=== PATIENT | female | born 1940 | race Caucasian/White ===

== ENCOUNTER 2017-02-13 12:37 | Day surgery (SDC) | payer MEDICARE, OTHER ==
[2017-02-13] VITALS (13 sets, daily range): BP systolic 111–155; BP diastolic 51–64; PULSE 63–83; RESP 10–16; O2SAT 93–100
[~2017-02-13] VITALS: Ht 157.5 cm; Wt 49.9 kg
[~2017-02-13 12:37] MED LIST: CALC117719 PO; CARB15DR74 BOTH_EYES; CHOL200025 PO; CeFAZolin Inj 2 GM in IV Premix 1 EACH IV ONE; DENO60DI SQ; ESTR10TA VG; FEM2.5T PO; GLUC100016 PO; HYOS0.1216 PO; MELA1TAB10 PO; MULT-1018 PO; OMEG1CAP25 PO; PEPPERMINT PO; PSYL3.4P5 PO; RESTASIS OU; S-AD200T6 PO; TURM500C7 PO; VITAMIN B12 PO; ZOV800 PO; [UNRECOGNIZED DRUG - OTHER] PO
[2017-02-13] MEDS ORDERED: Propofol 10,000 mCg/mL 20 mL Inj ONE (12:38)
[2017-02-13] MEDS ORDERED: fentaNYL-PF 50 mCg/mL 2 mL Inj ONE (12:38)
[2017-02-13] MEDS ORDERED: Ondansetron 2 mg/mL 2 mL Inj ONE (12:38)
[2017-02-13] MEDS ORDERED: Dexamethasone 4 mg/mL Inj ONE (12:38)
[2017-02-13] MEDS: Lactated Ringer's 1,000 ML IV SCH ×2 (12:54→13:30)
[2017-02-13] MEDS ORDERED: CeFAZolin Inj 2 gm / 50mL D5W IV ONE (14:06)
[2017-02-13] MEDS ORDERED: Lactated Ringer's 1,000 ML IV SCH (14:34)
[2017-02-13] MEDS ORDERED: Lactated Ringer's 500 ML IV PRN (14:34)
--- NOTE | 2017-02-13 14:34 | PCM.HPANE ---
Patient Data Surgeon Admitting Provider: Attending Provider:Tyrel Trivedi MD Primary Care Physician:Kentrell Gan MD Other Provider:[facility] Reason for Visit Left Axillary Lymphadenopathy Ht/WT & BMI Height (Feet): 5 Height (Inches): 2 Weight (Kilograms): 49.9 Body Mass Index 20.00 Allergies Coded Allergies: oxycodone (Verified Allergy, Unknown, NAUSEA, 01/23/13) Replaces ROXICET SOLN hydrocodone (Verified Adverse Reaction, Intermediate, nausea, 03/05/13) Uncoded Allergies: EGGS (Allergy, Unknown, 02/12/17) LACTOSE AND GLUTEN FREE (Allergy, Unknown, 02/12/17) Past Anesthesia History Anesthesia History: Denies:: Abnormal Airway, Anesthesia Reactions (all anes makes her nauseated), Difficult Intubation, Fam Anesthesia Reaction, Malignant Hyperthermia Diabetes History Hx Diabetes?: No MRSA MRSA: No Medications Hypertension Medication: No Home Meds Incl Beta Tio: No Reported Medications S-Adenosylmethionine Sul Tosyl (Edd-E)200 Mg Tablet.dr200 Mg PO DAILY 02/12/17 Multivitamin (Multi Vitamin Daily)1 Each Tablet1 Each PO DAILY 30 Days Ref 0 02/12/17 Calcium Carbonate (Tums Ultra Strength)1,177 Mg Tab.chew1,177 Mg PO BID 02/12/17 [Vitamin B12] No Conflict Hcxqh249 Mg PO DAILY 03/03/15 [Blk Pep Fruit Ext] No Conflict Check10 Mg PO DAILY 03/03/15 Turmeric Root Extract (Turmeric)500 Mg Janeudr634 Mg PO DAILY 03/03/15 Carboxymethylcellulose Sodium (Refresh Tears)15 Ml Drops15 Ml OP PRN 09/02/14 Psyllium Husk/Aspartame (Metamucil Fiber Singles Packet)3.4 Gm Powd.pack3.4 Gm PO PRN 09/02/14 Melatonin (Melatonin 1 mg Tablet)1 Each Tablet1 Mg PO HS Ref 0 09/02/14 Glucosamine Sulfate 2Kcl (Glucosamine)1,000 Mg Tablet1,500 Mg PO BID 09/02/14 [place]-3 Fatty Acids/Fish Oil ([place] 3 Fish Oil Softgel)1 Each Capsule.dr1 Each PO DAILY 09/02/14 Cholecalciferol (Vitamin D3) (Vitamin D3)2,000 Unit Tablet2,000 Unit PO DAILY 09/02/14 Estradiol (Vagifem)10 Mcg Hrukur46 Mcg VG TWICE WEEKLY 09/02/14 Acyclovir 800 Mg Bdq260 Mg PO BIDPRN Ref 0 09/02/14 Hyoscyamine 0.125 Mg Tablet0.125 Mg PO PRN 09/02/14 Denosumab (Prolia)60 Mg/1 Ml Xzbheio70 Mg SQ EVERY 6 MONTHS 09/02/14 Letrozole (Femara)2.5 Mg Tablet2.5 Mg PO DAILY Ref 0 03/02/14 [Peppermint Capsules] No Conflict Check Po Prn 08/19/13 [Restasis] No Conflict Check Ou Bid 08/19/13 Discontinued Reported Medications S-Adenosylmethionine Sul Tosyl (Same)200 Mg Tablet.dr200 Mg PO DAILY 03/03/15 Multivitamin (Daily Multiple Vitamin)1 Each Tablet1 Each PO DAILY SENIOR DOSE 03/03/15 Calcium Carbonate (Tums Ultra)400 Mg Tab.chew1,000 Mg PO BID 09/02/14 History History of ENT Problems?: Yes HEENT History: Positive for:: Hearing Problem Sinus Problem Denies:: Abnormal Airway Cataracts Difficult Intubation Dysphagia Glaucoma TMJ Hx of Heart Problems?: No Cardiovascular History: Denies:: Cardiac Surgery Chest Pain Congestive Heart Failure Edema Heart Murmur Hypertension Pacemaker Rheumatic Fever Thrombophlebitis Hx of Respiratory Problem?: No Respiratory History: Denies:: Asthma COPD Cough Dyspnea Emphysema Oxygen Administration Pneumonia Pulmonary Embolism Tuberculosis Use of C-PAP Machine Use of Inhalers / NEBS Hx Neurologic Problems?: No Neurological History: Denies:: CVA Headaches Multiple Sclerosis Parkinson's Disease Seizures Hx of GI Problems?: Yes Gastrointestinal History: Denies:: Cirrhosis Gall Bladder Disease Gastroesphageal Reflux Gastrointestinal Bleeding Heartburn Hepatitis Hx of Problems?: No Genitourinary History: Denies:: Kidney Stones Urinary Tract Infection Female Hx: Positive for:: Problems with Breasts? (left axilla current admission problem, hx patria mastectomy) Denies:: Currently Skin History: Denies:: History Skin Disorders? Pressure Ulcers Hx Musculoskeletal Problems?: Yes Musculoskeletal History: Positive for:: Osteoarthritis Denies:: Back Injury Fibromyalgia Joint Replacement Systemic Lupus Hx of Psycho/Social Problems?: No Psycho Social History: Denies:: Bipolar Disorder Hx Depression Hx Any Other Health Problems?: Yes Other History: Positive for:: Cancer (bilateral breasts) Denies:: Endocrine Disease Thyroid Disease History Blood Transfusions: Positive for:: Accept Blood Products? Denies:: Blood Transfusions Hx Diabetes: No Hx Alcohol Use: YesAlcoholic Drinks Per Day: couple of glasses wine couple times weekHx Substance Use: NoHave You Smoked inLast 12 mo: No Stop/Bang ARIEL Risk Assessment: Low Risk, <3 Yes Risk Assessment Category Category 1A: Patient has history of documented sleep apnea, and HAS NOT received any narcotic, sedative or anesthesia administration during this stay. Category 1B: Patient has history of documented sleep apnea, and HAS received any narcotic , sedative or anesthesia administration during this stay Category 2: Patient has SUSPECTED Obstructive Sleep Apnea, and HAS received any narcotic , sedative or anesthesia administration during this stay. Category 3: Patient has SUSPECTED Obstructive Sleep Apnea and HAS NOT received narcotic, sedative or anesthesia administration during this stay. Category 4: Outpatient in Procedural Areas with known sleep apnea or who screen positive for High Risk via the STOP/BANG questionnaire. Exam Exam Vital Signs Vital Signs Date Time Temp Pulse Resp B/P Pulse Ox O2 Delivery O2 Flow Rate FiO2 02/13/17 12:54 36.5 73 16 155/61 100 Room Air General Appearance: Alert, Oriented X3, Cooperative, No Acute Distress HEENT/AIRWAY: MP 2 Lungs: Clear to Auscultation, Normal Air Movement Heart: Exam Unremarkable, Regular Rate/Rhythm, No Murmurs/Rubs/Gallops Meds/Labs/Diagnostics Admission Meds Current Medications Lactated Ringer's (Lr) 1,000 ml @ 120 mls/hr Q8H20M IV Last administered on t 12:54; Start 02/13/17 at 05:00; Stop 02/13/17 at 13:19 Plan Impression Patient chart reviewed, patient interviewed and anesthestic plan with risks, benefits, and alternatives discussed, and informed consent obtained. NPO Status: 1045 ASA Physical Status: ASA2 Mod Systemic Disease Anesthetic Plan: GA Bene/Risks/Altern/Consents: Yes HP Complete Prior to Induction: Yes Edil Rodarte MD Feb 13, 2017 13:10
[2017-02-13] MEDS ORDERED: Atropine 0.4 mg/mL Inj IVPUSH PRN (14:35)
[2017-02-13] MEDS ORDERED: Phenylephrine 10,000 mCg/mL Inj IVPUSH PRN (14:35)
[2017-02-13] MEDS ORDERED: Labetalol 5 mg/mL 4 mL Inj IV PRN (14:35)
[2017-02-13] MEDS ORDERED: fentaNYL-PF 50 mCg/mL 2 mL Inj IVPUSH PRN (14:35)
[2017-02-13] MEDS ORDERED: EPHEDrine Sulfate 50 mg/mL Inj IVPUSH PRN (14:35)
[2017-02-13] MEDS ORDERED: MetoCLOpramide 5 mg/mL 2 mL Inj IVPUSH PRN (14:35)
[2017-02-13] MEDS ORDERED: Ondansetron 2 mg/mL 2 mL Inj IVPUSH PRN (14:35)
[2017-02-13] MEDS ORDERED: HYDROmorphone 1 mg/mL Inj IVPUSH PRN (14:35)
[2017-02-13] MEDS ORDERED: Bupivacaine 0.5%/EPI 50 mL Inj INFILTRATE ONE (14:41)
--- NOTE | 2017-02-13 15:04 | PCM.DISURG ---
Surgical Discharge Instruction Date of Service Feb 13, 2017 Dates of Hospitalization Date of Hospital Admission Providers Admitting Physician: Primary Care Physician: Kentrell Gan MD Attending Physician: Tyrel Trivedi MD Discharge Diagnosis Discharge Diagnosis Left axillary lymphadenopathy Diet Discharge Diet: No restrictions Activity Discharge Activity-General: Activity as pain allows Dressing and Incisional Care Dressing Instructions: Dermabond will peel off gradually Hygiene: May shower Follow Up Plan Follow Up Plan With Dr. Trivedi in surgery clinic in 10-14 days Call your provider for: Fever (over 101.5), Discharge @ incision, pus discharge Tyrel Trivedi MD Feb 13, 2017 15:04
[2017-02-13] MEDS ORDERED: Ketorolac 15 mg/mL Inj IVPUSH PRN (15:05)
[2017-02-13] MEDS ORDERED: Codeine-APAP 30-300 mg Tablet PO PRN (15:05)
--- NOTE | 2017-02-13 15:10 | PCM.SURGOP ---
Surgical Operative Report Date of Service: Feb 13, 2017 Pre Operative Diagnosis Left axillary lymphadenopathy Post Operative Diagnosis Same Procedure: Left axillary excisional lymph node biopsy Surgeon and Eviction Specialist: Surgeon: Tyrel Trivedi MD Assistants: Annetta Farmer PA-C Indication for Procedure 76-year-old woman with a history of bilateral breast cancer, who underwent an MRI of the left shoulder, and was incidentally found to have an abnormal left axillary lymph node vision 12 mm with loss of fatty hilum. An ultrasound confirmed a 17 x 14 x 10 mm lymph node with focal cortical thickening. She underwent an ultrasound-guided biopsy, which demonstrated a poorly differentiated epithelioid malignancy, suspicious for melanoma. PET/CT was then done, which showed nonspecific uptake in C6, and focal uptake in the left axilla, SUV 3.7. She was seen by dermatology, and there was no evidence of melanoma. After discussion of risks and benefits, she agreed to proceed with left axillary excisional lymph node biopsy. Findings: The abnormal node which was previously biopsied was not pigmented, and it was fairly soft. There was a single additional 3-4 mm node which was slightly firm , also not pigmented, which was excised. Both lymph nodes were in level II of the axilla. Procedure Details After smooth induction of general anesthesia, she was placed in the supine position with the left arm out, and was prepped and draped in wide sterile fashion. A procedural pause was performed according to the SCOAP checklist, and all were found to be in agreement. A transverse incision was made in the left axilla. Dissection was carried down with electrocautery until the axillary fascia was incised. The thoracodorsal bundle was visualized and preserved. The left axillary vein was not skeletonized, but was preserved. In level II, quite superior in the axilla the abnormal lymph node was encountered, which was not pigmented. It was dissected free from the surrounding tissue with the LigaSure device. The capsule of the node was ruptured during dissection, but it was no spillage of material. Ex vivo, the lymph node was fairly soft, and measured approximately 2 cm in diameter. It was sent for permanent pathology, labeled as left axillary lymph node #1. There was a second lymph node by palpation which was slightly abnormal , although not pathologically enlarged. This was dissected free from the surrounding tissue with the LigaSure device. Ex vivo, it probably only measured 3-4 mm in diameter. It was sent for permanent pathology, labeled as left axillary lymph node #2. There were no other abnormal lymph nodes by palpation. Hemostasis was adequate. The axillary fascia was closed with a single 3-0 Vicryl suture. The skin incision was closed with a running 4-0 Monocryl subcuticular stitch. Dermabond was applied to the skin as a dressing. At the end of the case all needle and sponge counts were correct 2. The patient was awakened from anesthesia without difficulty, and taken to the recovery room in satisfactory condition, having tolerated the procedure well. Complications There were no periprocedural complications identified. Surgical Specimen Removed: Yes Specimen sent to Pathology: Yes Surgical Specimen description: Left axillary lymph node #1. Left axillary lymph node #2. Anesthetic Plan: GA Grafts, Implants: None Output, Estimated Blood Loss: 5 Blood Administration during davis: No Drains: None Catheters: None copies to: Chester Nolan DO; Kentrell Gan MD, Joshua D MD Feb 13, 2017 15:10
--- NOTE | 2017-02-13 15:10 | PCM.ANEP1 ---
Post Anesthesia Phase 1 PACU Phase 1 Assessment Vital Signs Vital Signs Date Time Temp Pulse Resp B/P Pulse Ox O2 Delivery O2 Flow Rate FiO2 02/13/17 12:54 36.5 73 16 155/61 100 Room Air Anesthetic Administered: GA SULLIVAN's with Equal Strength: Yes Pain: No Nausea or Vomiting: No Oxygen Delivery: Nasal Cannula Lungs: Clear to Auscultation, Normal Air Movement Summary VSS, see RN's notes Edil Rodarte MD Feb 13, 2017 15:10
--- NOTE | 2017-02-13 15:11 | PCM.ANEP2 ---
Post Anesthesia Evaluation ASA/CMS Post Anesthesia VS in Patient's Normal Range?: Yes Resp Stable; Airway Patent?: Yes CV Function & Hydration Stable: Yes Mental Status Recovered?: Yes Pain control Satisfactory?: Yes N/V Control Satisfactory?: Yes Edil Rodarte MD Feb 13, 2017 15:11
[2017-02-13] MEDS ORDERED: Lactated Ringer's 500 ML IV ONE (17:00)
--- NOTE | 2017-02-19 12:14 | PATH ---
SURGICAL PATHOLOGY Attending Physician:Kimmy Howard CASE STATUS: Signed Out PATIENT NAME: SANDRA BATES PID: [id number] : 1940 DATE COLLECTED:02/13/2017 00:00 SPECIMEN: 1: Lymph Node, Biopsy 2: Lymph Node, Biopsy CLINICAL HISTORY: LEFT AXILLA LYMPHADENOPATHY 1). LEFT AXILLARY LYMPH NODE #1 2). LEFT AXILLARY LYMPH NODE #2 FINAL DIAGNOSIS: 1. Left Axillary Lymph Node: Metastatic malignant melanoma. Tumor is confined within the lymph node capsule. 2. Left Axillary Lymph Node: One lymph node with no evidence of malignancy. ICD10 C43.9 GROSS DESCRIPTION: The specimens are received in formalin, labeled with the patient's name, and sublabeled as the following: (1) L ax lymph node #1; (2) L ax lymph node #2. (1) The specimen consists of a lymph node (2.0 x 1.7 x 0.7 cm). Section code: (1A-1C) one lymph node, serially sectioned. Specimen entirely submitted. (2) The specimen consists of a lymph node (0.8 x 0.5 x 0.5 cm). Section code: (2A) one lymph node, bisected. Specimen entirely submitted. 02/14/17 MICRO DESCRIPTION: 1) The lymph node is replaced by sheets of moderately sized cells with irregularly sized nuclei and moderate amounts of cytoplasm. Numerous mitoses are found. Immunocytochemistry is done to characterize the tumor. Sections, along with appropriate controls are incubated with the following antibodies: S100:Positive. HMB45:Positive. Melan-A:Positive. SOX10:Positive. Pankeratin (IRINA):Negative. CD45:Negative. CD20:Negative. CD3:Negative. The findings are consistent with metastatic malignant melanoma. ICD-9 CODES: CPT CODES: 1: 37384, 34804, 37815, 46965, 08278, 51342, 19350, 32099, 00901 2: 39764 Electronically Signed Out Myles Foley MD [facility] [address], [place] [address] Technical component performed at [facility], [facility] [address], [place], [address]
== END 2017-02-13 23:59 | disposition home or self-care (01) ==
LOC: SAS 12:37
PROVIDERS: ATTEND Student in an Organized Health Care Education/Training Program
DX: C44.599 Other specified malignant neoplasm of skin of other part of trunk (principal); R59.0 Localized enlarged lymph nodes; M19.90 Unspecified osteoarthritis, unspecified site; Z85.3 Personal history of malignant neoplasm of breast; Z87.891 Personal history of nicotine dependence; Z79.890 Hormone replacement therapy
CPT/HCPCS: 38525; J0690; J1100; J1885; J2405; J2765; J3010; J7120

== ENCOUNTER 2017-04-01 09:51 | Inpatient (IN) | payer MEDICARE, OTHER ==
[~2017-04-01] VITALS: Ht 154.9 cm; Wt 48.2 kg
[~2017-04-01 09:51] MED LIST changes: -CeFAZolin Inj 2 GM in IV Premix 1 EACH IV ONE
[2017-04-01 10:02] VITALS: BP 131/73; PULSE 97; O2SAT 99
--- NOTE | 2017-04-01 10:08 | ED.REPORT ---
HPI-Abd Pain F 40 and Over Date of Service April 01, 2017 ED Provider: Dr. Huffman Pt is a 76 year old female with a hx of melanoma (started Ipilimumab 3 weeks ago ) presenting to the ED complaining of diarrhea onset 5 days ago. Associated symptoms include nausea and vomiting for 3 days, generalized weakness, and a fever of 100.9. Denies abd pain or blood in the diarrhea. Dr. Nolan advised the pt to take Imodium, which she did without relief. Denies any recent sick contacts or antibiotic use. Nursing Notes Stated Complaint: DIARRHEA Chief Complaint: Female Abdominal Pain Nursing Notes Reviewed: Yes Allergies: Coded Allergies: oxycodone (Verified Allergy, Unknown, NAUSEA, 01/23/13) Replaces ROXICET SOLN hydrocodone (Verified Adverse Reaction, Intermediate, nausea, 03/05/13) Uncoded Allergies: EGGS (Allergy, Unknown, 02/12/17) LACTOSE AND GLUTEN FREE (Allergy, Unknown, 02/12/17) NARCOTICS (Adverse Reaction, Intermediate, Nausea,Vomiting, 04/01/17) Scheduled ([Restasis]) OU BID ([Peppermint Capsules]) PO PRN ([Vitamin B12]) 500 MG PO DAILY Acyclovir (Acyclovir) 800 Mg Tab 800 MG PO BIDPRN Calcium Carbonate (Tums Ultra Strength) 1,177 Mg Tab.chew 1,177 MG PO BID Carboxymethylcellulose Sodium (Refresh Tears) 15 Ml Drops 15 ML OP PRN Cholecalciferol (Vitamin D3) (Vitamin D3) 2,000 Unit Tablet 2,000 UNIT PO DAILY Glucosamine Sulfate 2Kcl (Glucosamine) 1,000 Mg Tablet 1,500 MG PO BID Hyoscyamine (Hyoscyamine) 0.125 Mg Tablet 0.125 MG PO PRN Multivitamin (Multi Vitamin Daily) 1 Each Tablet 1 EACH PO DAILY [place]-3 Fatty Acids/Fish Oil ([place] 3 Fish Oil Softgel) 1 Each Capsule. 1 EACH PO DAILY Omeprazole (Omeprazole) 20 Mg Capsule.dr 20 MG PO BID Turmeric Root Extract (Turmeric) 500 Mg Capsule 500 MG PO DAILY Scheduled PRN Naproxen Sodium (Naproxen Sodium) 550 Mg Tab 550 MG PO BID PRN PRN For Pain General Time Seen by MD: 10:07 Chief Complaint Diarrhea moderate Hx Obtained From: Patient Arrived By: Walk-in Sudden in Onset?: No Onset Occurred: 5 days ago Symptom Duration: Since onset Progression since Onset: Constant Severity: Current: No pain currently Severity: Maximum: No pain Associated with: Reports: Fever (100.9), Nausea, Vomiting Recent Healthcare: No recent doctor visit, No recent hospitalization Similar Sx Previous: No Past Medical History Past Medical History 1. Stage IIIC (Tx N1) malignant melanoma. 2. Right-sided stage I, node-negative breast cancer. The patient's letrozole was held on March 02, 2017, during her ipilimumab therapy. 3. Polymyalgia rheumatica. Managed with OTC naproxen, 1 pill per day. Follow up with Rheumatology later in the week to confirm diagnosis. 4. Left-sided multifocal DCIS. 5. Irritable bowel disease. 6. Osteopenia. Past Surgical History Bilateral mastectomy Smoking History Unknown if Ever Smoker Ambulatory Status Independent Review of Systems Constitutional: Reports: Fever (100.9), Weakness - generalized GI: Reports: Diarrhea, Nausea, Vomiting, Denies: Abdominal pain, Bloody/tarry stool Complete sys rev & neg: except as marked. Physical Exam Vital Signs Vital Signs (First) Date Time Temp Pulse Resp B/P Pulse Ox O2 Delivery O2 Flow Rate FiO2 04/01/17 10:02 37.3 97 131/73 99 Room Air Initial VS: Reviewed Head / Eyes: Atraumatic, Normocephalic, PERRL ENT: Conjunctiva normal Extremities: Vascular intact, Neuro intact, No swelling, No tenderness Skin: Warm, Dry, No cyanosis Neurologic: Alert, Oriented, Nonfocal Psychiatric: Mood/affect normal, Behavior normal, Normal thought content General/Constitutional: Awake, Alert, No acute distress, Well appearing Respiratory / Chest: Breath sounds NL, Breath sounds = bilat, No respiratory distress, No rales, No rhonchi, No wheezing, No stridor Cardiovascular: Heart rate NL, Regular rhythm, Heart sounds NL, No gallop, No murmurs, No rubs Abdomen: Soft, No guarding, No rebound Hyperactive bowel sounds. Little suprapubic tenderness. Back: Atraumatic, Inspection NL, No CVA tenderness Interpretation & Diagnostics Lab Results Interpretation Result Diagram: 04/01/17 1107 04/01/17 1107 Test 04/01/17 11:07 04/01/17 12:26 White Blood Count 8.2th/mm3 (3.8-10.1) Red Blood Count 4.19mil/mm3 (3.90-5.20) Hemoglobin 11.9g/dL (12.0-15.6) Hematocrit 35.1% (35.0-46.0) Mean Corpuscular Volume 83.8fL (81-100) Mean Corpuscular Hemoglobin 28.4pg (27.0-35.0) Mean Corpuscular Hemoglobin Concent 33.9% (32.0-37.0) Red Cell Distribution Width 14.1% (12.3-15.4) Platelet Count 405bil/L (150-400) Neutrophils (%) (Auto) 27% (40-74) Lymphocytes (%) (Auto) 22% (14-46) Monocytes (%) (Auto) 22% (4-12) Eosinophils (%) (Auto) 3% (0-5) Basophils (%) (Auto) 1% (0-3) Band Neutrophils % 25% (1-5) Sodium Level 137mEq/L (134-144) Potassium Level 3.7mEq/L (3.5-5.2) Chloride Level 97mEq/L (97-108) Carbon Dioxide Level 20mmol/L (18-29) Blood Urea Nitrogen 5mg/dL (8-27) Creatinine 0.48mg/dL (0.57-1.00) Estimat Glomerular Filtration Rate 179mL/min (>59) Glucose Level 96mg/dL (60-99) Calcium Level 8.4mg/dL (8.5-10.1) Magnesium Level 2.0mg/dL (1.6-2.6) Total Bilirubin 0.3mg/dL (0.0-1.2) Aspartate Amino Transf (AST/SGOT) 19U/L (0-50) Alanine Aminotransferase (ALT/SGPT) 11U/L (0-32) Alkaline Phosphatase 75U/L (25-165) Total Protein 5.9g/dL (6.4-8.4) Albumin 3.0g/dL (3.4-5.0) Hold Jasso Top Tube Received (Received) Hold Urine Received (Received) Re-Eval/Medical Decision Med Decision/Clinical Course Diarrhea, thought to be secondary to Ipaliumiab. Hydrated, stool sent for PCR panel, no risk for C diff found. Oncology advises admit. Re-Evaluation/Progress #1: Time of Eval: 12:18 Patient Status: Condition improved Re-Evaluation/Progress Note: Performed physical exam. Pt reports that she has been taking Imodium with some relief, but it has been making her mouth very dry. Re-Evaluation/Progress #2: Time of Eval: 12:28 Patient Status: Condition improved Re-Evaluation/Progress Note: Discussed consultation with Dr. Nolan and plan for admission. Pt understands and agrees. Consultation #1: Referral / Consult Name: Chester Nolan DO Call Returned at: 12:27 Note: Oncology. Dr. Nolan recommends admission and administration of zofran, imodium and IV fluids. Consultation #2: Referral / Consult Name: [place] He MD Consulted With: Hospitalist Call Returned at: 12:47 [employer] Lecturer: Will see patient, Agrees with plan, Accepts admit Counseled Regarding: Diagnosis, Lab results, Need for follow-up, When/why to return to ED Discharge & Departure Primary Impression: Diarrhea Disposition: ADMITTED TO HOSPITAL Discharge Condition All VS Reviewed: Yes Condition: Improved Referrals: Kentrell Gan MD (PCP) Chester Nolan Attestation Portions of this note were transcribed by Socorro Norwood. I, Dr. Huffman personally performed the history, physical exam and medical decision-making; I reviewed and confirmed the accuracy of the information in the transcribed note. Signed by : Bryan De La Cruz, 04/01 at 1248. copies to: Chester Nloan DO; Kentrell Gan MD, Donald L MD April 01, 2017 10:07 SOCORRO NORWOOD April 01, 2017 11:01
[2017-04-01] MEDS ORDERED: 0.9% Sodium Chloride 1,000 ML IV ONE ×2 (11:01→12:20)
[2017-04-01] MEDS ORDERED: Ondansetron 2 mg/mL 2 mL Inj IV PRN (11:05)
[2017-04-01 11:55] LABS: Mean Corpuscular Volume 83.8 fL (81-100)
[2017-04-01 11:56] LABS: BASOPHILS % (AUTO) 1 % (0-3); EOSINOPHILS % (AUTO) 3 % (0-5); MONOCYTES % (AUTO) 22 % (4-12); Mean Corpuscular Hemoglobin 28.4 pg (27.0-35.0); NEUTROPHILS % (AUTO) 27 % (40-74); Platelet Count 405 bil/L (150-400)
[2017-04-01 12:06] VITALS: BP 132/67; PULSE 67; O2SAT 98
[2017-04-01] MEDS ORDERED: Ondansetron 2 mg/mL 2 mL Inj IVPUSH PRN (12:45)
[2017-04-01] MEDS ORDERED: OMEP20CA11 PO (13:09)
[2017-04-01] MEDS ORDERED: NAPR550T44 PO (13:09)
--- NOTE | 2017-04-01 13:30 | NUR ---
admitted to room 1020 from ER c/o mild nausea and mild abd pain at this time. No further diarrhea. ambulates with SBA for slightly unsteady gait. VSS, alert and oriented
--- NOTE | 2017-04-01 13:42 | PCM.HPMED ---
Subjective Date of Service April 01, 2017 Primary Provider: Admitting Physician: Primary Care Physician: Kentrell Gan MD Attending Physician: Chief Complaint: intractable diarrhea, nausea, vomiting History of Present Illness: 76-year-old female with melanoma stageIII on immunotherapy with Ipilimumab, breast CA, PMR on NSAID p/w generalized weakness, persistent nausea, vomiting, diarrhea. Patient received first cycle of Ipilimumab 03/12, about 10days later, started having nausea, vomiting, diarrhea, poor appetite, Symptoms has been on and off. nausea was controlled with valium. However, diarrhea was continued no blood, watery, no mucus. patient tried Imodium up to 6times per day but diarrhea never stopped. Since last night, pt had 4times of diarrhea, 2more in the hospital. Patient didn't have any abdominal pain during this course. had mild fever 100.9 several days ago. also noticed some lightheadedness, thirsty. patient called oncologist today, asked patient to admitted to the hospital. Patient denied eye pain, photosensitivity, patient also noticed that her regular pain in bilateral shoulder and hip pain were worse since she got Ipilimumab, pt kept taking [id number] bid wit omeprazole. appetite has been very poor due to n/v as well. no vomiting blood. VS 131/73, 97, afebrile, 99% on RA. pt was given 1liter bolus NS, stool PCR sent ROS: no fever chills, nausea, vomiting, chest pain, difficulty breathing, travel , sick contacts, urinary complaints Review of Systems: Pertinent positives as noted in history of present illness. All other systems were reviewed and are negative Allergies Coded Allergies: oxycodone (Verified Allergy, Unknown, NAUSEA, 01/23/13) Replaces ROXICET SOLN hydrocodone (Verified Adverse Reaction, Intermediate, nausea, 03/05/13) Uncoded Allergies: EGGS (Allergy, Unknown, 02/12/17) LACTOSE AND GLUTEN FREE (Allergy, Unknown, 02/12/17) NARCOTICS (Adverse Reaction, Intermediate, Nausea,Vomiting, 04/01/17) Home Medications ([Restasis]) OU BID ([Peppermint Capsules]) PO PRN ([Blk Pep Fruit Ext]) 10 MG PO DAILY ([Vitamin B12]) 500 MG PO DAILY Acyclovir (Acyclovir) 800 Mg Tab 800 MG PO daily Calcium Carbonate (Tums Ultra Strength) 1,177 Mg Tab.chew 1,177 MG PO BID Carboxymethylcellulose Sodium (Refresh Tears) 15 Ml Drops 15 ML OP PRN Cholecalciferol (Vitamin D3) (Vitamin D3) 2,000 Unit Tablet 2,000 UNIT PO DAILY -D-k-n-f-p-n-m-a-b- -(--C-c-e-l-i-a--)- -6-0- -M-g--/--1- -M-l- -W-f-j-i-n-g-e- -6-0- -M-G- -S-Q- -E-V-E-R-Y- -6- -W-G-T-T-H-S- Estradiol (Vagifem) 10 Mcg Tablet 10 MCG VG TWICE WEEKLY Glucosamine Sulfate 2Kcl (Glucosamine) 1,000 Mg Tablet 1,500 MG PO BID Hyoscyamine (Hyoscyamine) 0.125 Mg Tablet 0.125 MG PO PRN -U-p-t-w-l-d-o-l-e- -(--F-z-f-a-r-a--)- -2-.-5- -M-g- -N-h-v-l-e-t- -2-.-5- -M-G- -P-O- -D-A-I-L-Y- - - 03/02/[address] new since Iipilimumab started Melatonin (Melatonin 1 mg Tablet) 1 Each Tablet 1 MG PO HS Multivitamin (Multi Vitamin Daily) 1 Each Tablet 1 EACH PO DAILY [place]-3 Fatty Acids/Fish Oil ([place] 3 Fish Oil Softgel) 1 Each Capsule. 1 EACH PO DAILY Psyllium Husk/Aspartame (Metamucil Fiber Singles Packet) 3.4 Gm Powd.pack 3.4 GM PO PRN S-Adenosylmethionine Sul Tosyl (Edd-E) 200 Mg Tablet. 200 MG PO DAILY Turmeric Root Extract (Turmeric) 500 Mg Capsule 500 MG PO DAILY PMH PAST MEDICAL HISTORY: Significant for: 1. Stage IIIC (Tx N1) malignant melanoma. 2. Right-sided stage I, node-negative breast cancer. The patient's letrozole was held on March 02, 2017, during her ipilimumab therapy. 3. Polymyalgia rheumatica. Managed with OTC naproxen, 1 pill per day. Follow up with Rheumatology later in the week to confirm diagnosis. 4. Left-sided multifocal DCIS. 5. Irritable bowel disease. 6. Osteopenia. Surgical History mastectomy x2 Left axillary excisional lymph node biopsy Family History father of aneurysm sister of aneurysm mother of stroke Social History Hx Alcohol Use: Yes Hx Substance Use: No Smoking Status: Unknown if Ever Smoker Exam Vital Signs Vital Sign - Last Date Time Temp Pulse Resp B/P Pulse Ox O2 Delivery O2 Flow Rate FiO2 04/01/17 12:06 37.4 67 132/67 98 Room Air Exam NAD, comfortably laying down on the bed no JVD, MMM, no LAD RRR, nl s1, s2 no mrg CTAB, no w,c S,ND,NT,normoactive BS+ warm, no edema, pulses 2/2 Lab and Diagnostics Result Diagram: 04/01/17 1107 04/01/17 1107 Assessment & Plan Acute, active Generalized weakness, intractable nausea, vomiting, diarrhea, POA, onset 10days after first immunotherapy with Ipilimumab for melenoma, which is likely the etiology. no SIRS. labs unremarkable. -awaits stool PCR, if negative, likely to start steroid, appreciate input -NS 100cc/hr given hypovolemia, symptomatic, -will consider CT abd with oral contrast, although etiologies at this point seems obvious -zofran prn for n/v Chronic, stable 1. Stage IIIC (Tx N1) malignant melanoma, hold Ipilimumab as above, appreciate management, continue acyclovir for herpes ppx 2. Right-sided stage I, node-negative breast cancer. The patient's letrozole was held on March 02, 2017, during her ipilimumab therapy. 3. presumed Polymyalgia rheumatica. will try ketorolac 15mg prn for severe pain, pantoprazole prn, pt is scheduled to see Rheumatology to confirm dx 4. Left-sided multifocal DCIS. 5. Irritable bowel disease. 6. Osteopenia. dispo:Patient will be admitted with inpatient status with expectation of inpatient therapy for more than 2 midnights diet:regular dvt ppx:LMWH Full code Time spent 65 minutes Michoacano He MD April 01, 2017 12:51
[2017-04-01 13:56] VITALS: BP 146/66; PULSE 99; RESP 18; O2SAT 98
[2017-04-01] MEDS: Lactated Ringer's 1,000 ML IV SCH (14:07)
[2017-04-01] MEDS ORDERED: Artificial Tears 15 mL Ophthalmic Solution BOTH_EYES PRN (14:25)
[2017-04-01] MEDS: Ketorolac 15 mg/mL Inj IVPUSH PRN ×2 (15:00→21:58)
[2017-04-01 18:07] LABS: APPEARANCE,URINE CLEAR (CLEAR,HAZY); COLOR,URINE STRAW (YELLOW); OCCULT BLOOD,URINE NEGATIVE (NEGATIVE); UROBILINOGEN,URINE NORMAL (NORMAL)
[2017-04-01] MEDS: Acyclovir 800 mg Tablet PO SCH (19:59)
[2017-04-01 20:16] VITALS: BP 149/71; PULSE 103; RESP 16; O2SAT 98
[2017-04-02] VITALS: BP 141/69; RESP 18; O2SAT 96
--- NOTE | 2017-04-02 00:34 | NUR ---
Nausea Patient states that her nausea is limited at this time. Pain is 2/10. Patient had diarrhea twice so far this shift. Patient A&OX3. up independent to bathroom. Patient had shower this shift. Tolerating oral fluids well.
[2017-04-02] MEDS: Lactated Ringer's 1,000 ML IV SCH ×2 (01:50→11:20)
[2017-04-02 06:17] VITALS: BP 96/56; PULSE 65; RESP 16; O2SAT 95
[2017-04-02 06:25] LABS: Magnesium 1.6 mg/dL (1.6-2.6); Phosphorus 1.7 mg/dL (2.5-4.9)
[2017-04-02] MEDS: Acyclovir 800 mg Tablet PO SCH ×2 (07:49→20:05)
[2017-04-02] MEDS: Pantoprazole 40 mg ER24 Tablet PO SCH (07:49)
[2017-04-02 07:53] LABS: BASOPHILS % (AUTO) 0 % (0-3); EOSINOPHILS % (AUTO) 0 % (0-5); MONOCYTES % (AUTO) 25 % (4-12); Mean Corpuscular Hemoglobin 28.2 pg (27.0-35.0); Mean Corpuscular Volume 84.5 fL (81-100); NEUTROPHILS % (AUTO) 57.5 % (40-74); Platelet Count 331 bil/L (150-400)
[2017-04-02 09:50] VITALS: BP 114/65; PULSE 79; RESP 18; O2SAT 99
[2017-04-02] MEDS: MethylprednisoLONE Sodium Succinate 40 mg/mL Inj IVPUSH SCH (11:14)
[2017-04-02 12:35] VITALS: BP 119/61; PULSE 86; RESP 18; O2SAT 99
--- NOTE | 2017-04-02 13:54 | NUR ---
Social Work: Initial Assessment D: EMR reviwed. Pt is a 76 y/o female admitted for intractable diarrhea, weakness per H&P. ROGER met with pt at bedside to conduct initial assessment. Pt was alert and oriented x3. SW explained role and wrote phone number on white board. SW confirmed pt has completed DPOA/advanced directive ppw and encouraged pt to provide a copy to the hospital. Pt's primary contact/DPOA is spouse Jv Pettit ([phone]). Pt gave verbal consent to contact DPOA for discharge planning. Pt's insurance is Medicare and [employer]. Pt's PCP is Kentrell Gan MD. Pt has no Hx of HH or SNF. Pt has no LTC or VA insurance. Pt is independent with ADLs. Pt does not use any DME. Pt drives. Pt is independent at baseline. Pt lives at home with spouse in [facility] in a 2-story home with 2 steps to enter and 13 steps to the second level. Pt stated she has been up in room and ambulating independently. Pt's spouse will provide transportation home via POV when pt is medically stable. SW does not anticipate any discharge needs at this time but will continue to follow if needs arise. A: Pt who is independent at baseline. P: Pt's spouse to transport pt home via POV when pt is medically stable. ROGER does not anticipate any discharge needs at this time but will continue to follow if needs arise. Addendum: 04/02/17 at 1404 by WENDI AVENDAÑO SS Amended: Links added.
--- NOTE | 2017-04-02 16:34 | NUR ---
Diarrhea Pt with [address] morning[address] Dr[address] Nolan started 40mg Solumedrol given at 1100 to help with diarrhea; loose stools have slowed down with only one more this afternoon. Q6hr blood sugar was 162. No s/s of electrolyte imbalance. Will continue to monitor closely.
[2017-04-02] MEDS ORDERED: predniSONE 20 mg Tablet PO SCH (17:45)
--- NOTE | 2017-04-02 17:51 | PCM.PNMED ---
Subjective Date of Service April 02, 2017 Subjective Patient feeling better seems to feel the diarrhea is letting up. No chest pain , no dyspnea no nausea or vomiting. Patient tells me she saw her oncologist Dr. Nolan and that this was a reaction to the immunotherapy she was old and that she needed steroids and he was going to prescribe them. At this time in the evening I see no note nor an order for steroids. Exam Vital Signs Vital Sign - Last Date Time Temp Pulse Resp B/P Pulse Ox O2 Delivery O2 Flow Rate FiO2 04/02/17 12:35 36.9 86 18 119/61 99 Room Air Intake and Output 04/01/17 04/01/17 04/02/17 Cumulative From/Thru 15:00 23:00 07:00 04/01/17 10:02 - 04/02/17 06:17 Intake Total 2000 ml 400 ml 1854 ml 4254 ml Output Total 800 ml 950 ml 1750 ml Balance 2000 ml -400 ml 904 ml 2504 ml Intake Oral 400 ml 450 ml 850 ml IV Total 2000 ml 1404 ml 3404 ml Output Urine Total 800 ml 800 ml Urine/Stool Mix 950 ml 950 ml # Bowel Movements 3 3 Exam Gen.- A+ O 3 no apparent distress. Eyes- open conjunctiva clear, pupils equal nonicteric ENT- ears normal, nose normal Neck- supple/trach midline CVS-normal rate Lungs-respirations regular and nonlabored GI- flat Musc- moving 4 no obvious deformity Neuro- cranial nerves II through XII intact to gross examination, nonfocal Skin- warm and dry, no rashes/lesions/wounds noted Psych- pleasant and appropriate, Lab and Diagnostics Result Diagram: 04/02/17 0532 04/02/17 0532 Assessment & Plan 76-year-old female with melanoma on immunotherapy developed diarrhea was admitted 04/01 04/02 meeting patient with immunotherapy induced enterocolitis being treated with steroids, hypokalemic and anemic changing IV fluids to replace potassium and will follow up labs in the morning Generalized weakness, intractable nausea, vomiting, diarrhea, POA, onset 10days after first immunotherapy with Ipilimumab for melenoma, -stool PCR + negative, solumedrol 40mg IV QDay ordered by? ? -NS w/ 20meq 100cc/hr -zofran prn for n/v Anemia- likely dilutional, follow hypokalemia- replace/monitor check mag Stage IIIC (Tx N1) malignant melanoma, hold Ipilimumab as above, appreciate management, continue acyclovir for herpes ppx Right-sided stage I, node-negative breast cancer. The patient's letrozole was held on March 02, 2017, during her ipilimumab therapy. presumed Polymyalgia rheumatica. will try ketorolac 15mg prn for severe pain, pantoprazole prn, pt is scheduled to see Rheumatology to confirm dx Left-sided multifocal DCIS. Irritable bowel disease. Osteopenia. dispo:Patient will be admitted with inpatient status with expectation of inpatient therapy for more than 2 midnights diet:regular dvt ppx:LMWH Full code Jonathan Vazquez MD April 02, 2017 17:51
[2017-04-02] MEDS: 0.9% NaCl + KCl 20 mEq/L 1,000 ML IV SCH (19:16)
[2017-04-02 21:07] VITALS: BP 115/61; PULSE 89; RESP 18; O2SAT 96
--- NOTE | 2017-04-02 23:41 | NUR ---
Activity Patient alert and oriented x3. No complaints of pain. VSS. Encouraged patient to drink fluids. Call light within reach. Care continues.
[2017-04-03 00:10] VITALS: BP 111/75; PULSE 91; RESP 16; O2SAT 97
[2017-04-03] MEDS: 0.9% NaCl + KCl 20 mEq/L 1,000 ML IV SCH ×2 (03:55→09:32)
[2017-04-03 05:14] VITALS: BP 115/66; PULSE 77; RESP 16; O2SAT 98
[2017-04-03 06:10] LABS: Mean Corpuscular Hemoglobin 28.4 pg (27.0-35.0); Platelet Count 381 bil/L (150-400)
[2017-04-03 06:27] LABS: Magnesium 1.8 mg/dL (1.6-2.6)
[2017-04-03 07:42] LABS: BASOPHILS % (AUTO) 0 % (0-3); EOSINOPHILS % (AUTO) 0 % (0-5); MONOCYTES % (AUTO) 10 % (4-12); NEUTROPHILS % (AUTO) 75 % (40-74)
[2017-04-03] MEDS: Pantoprazole 40 mg ER24 Tablet PO SCH (08:20)
[2017-04-03] MEDS: Acyclovir 800 mg Tablet PO SCH ×2 (08:21→20:05)
[2017-04-03] MEDS: MethylprednisoLONE Sodium Succinate 40 mg/mL Inj IVPUSH SCH (09:32)
[2017-04-03 14:58] VITALS: BP 112/57; PULSE 95; RESP 16; O2SAT 95
--- NOTE | 2017-04-03 15:51 | NUR ---
AMBULATION/DIARRHEA/EDEMA P-Patient has bilateral edema lower extremities. Diarrhea x2 this shift (small liquid). I- MD made aware on edema and IV fluids stopped and Lasix started, patient encouraged to ambulate. IVP Heaven-medrol given per orders. E-Patient ambulated 100ft in hallway, monitor I/O's.
[2017-04-03 16:53] VITALS: BP 128/71; PULSE 95; RESP 14; O2SAT 96
--- NOTE | 2017-04-03 17:46 | PCM.PNMED ---
Subjective Date of Service April 03, 2017 Subjective Patient feels like abdomen is feeling better, diarrhea is letting up. She is concerned however about bilateral leg swelling. No chest pain, no dyspnea, no nausea or vomiting Exam Vital Signs Vital Sign - Last Date Time Temp Pulse Resp B/P Pulse Ox O2 Delivery O2 Flow Rate FiO2 04/03/17 16:53 36.7 95 14 128/71 96 Room Air Intake and Output 04/02/17 04/02/17 04/03/17 Cumulative From/Thru 14:59 22:59 06:59 04/01/17 10:02 - 04/03/17 06:07 Intake Total 1549 ml 1300 ml 7103 ml Output Total 800 ml 750 ml 3300 ml Balance 749 ml 550 ml 3803 ml Intake Oral 800 ml 250 ml 1900 ml IV Total 749 ml 1050 ml 5203 ml Output Urine Total 400 ml 450 ml 1650 ml Urine/Stool Mix 400 ml 300 ml 1650 ml # Bowel Movements 4 1 8 Exam Gen.- A+ O 3 no apparent distress. Eyes- open conjunctiva clear, pupils equal nonicteric ENT- ears normal, nose normal Neck- supple/trach midline CVS-normal rate Both feet/legs are swollen and seem disproportional to the rest of her body Lungs-respirations regular and nonlabored GI- flat Musc- moving 4 no obvious deformity Neuro- cranial nerves II through XII intact to gross examination, nonfocal Skin- warm and dry, no rashes/lesions/wounds noted Psych- pleasant and appropriate, Lab and Diagnostics Result Diagram: 04/03/17 0540 04/03/17 0540 Assessment & Plan 76-year-old female with melanoma on immunotherapy developed diarrhea was admitted 04/01 04/02 meeting patient with immunotherapy induced enterocolitis being treated with steroids, hypokalemic and anemic changing IV fluids to replace potassium and will follow up labs in the morning 04/03 diarrheas letting outpatient feels better she has substantial edema. Spoke with her oncologist Dr. Nolan we are going to continue Solu-Medrol observe overnight. Her stopping IV fluids and attempting diuresis for edema/poor urinary output. Pedal edema-stopping IV fluids giving dose furosemide Generalized weakness, intractable nausea, vomiting, diarrhea, POA, onset 10days after first immunotherapy with Ipilimumab for melenoma, -improved -stool PCR + negative, solumedrol 40mg IV QDay ordered by -CRISS w/ 20meq 100cc/hr stopped 04/03 -zofran prn for n/v Anemia- likely dilutional, follow hypokalemia- replace/monitor check mag Stage IIIC (Tx N1) malignant melanoma, hold Ipilimumab as above, appreciate management, continue acyclovir for herpes ppx Right-sided stage I, node-negative breast cancer. The patient's letrozole was held on March 02, 2017, during her ipilimumab therapy. presumed Polymyalgia rheumatica. will try ketorolac 15mg prn for severe pain, pantoprazole prn, pt is scheduled to see Rheumatology to confirm dx Left-sided multifocal DCIS. Irritable bowel disease. Osteopenia. dispo:Patient will be admitted with inpatient status with expectation of inpatient therapy for more than 2 midnights diet:regular dvt ppx:LMWH Full code Jonathan Vazquez MD April 03, 2017 17:46
[2017-04-03 19:42] VITALS: BP 148/80; PULSE 74; RESP 15; O2SAT 96
--- NOTE | 2017-04-04 04:18 | NUR ---
Activity Episodes of diarrhea continued to decrease. Increase in urine output, lower leg edema persists at this time. Anticipating discharge in am, hourly rounding ongoing.
[2017-04-04 04:49] VITALS: BP 138/74; PULSE 69; RESP 20; O2SAT 97
[2017-04-04 06:54] LABS: Mean Corpuscular Hemoglobin 28.1 pg (27.0-35.0); Mean Corpuscular Volume 81.1 fL (81-100); Platelet Count 445 bil/L (150-400)
[2017-04-04 07:02] LABS: Magnesium 1.8 mg/dL (1.6-2.6)
[2017-04-04 07:40] LABS: BASOPHILS % (AUTO) 0 % (0-3); EOSINOPHILS % (AUTO) 0 % (0-5); MONOCYTES % (AUTO) 16 % (4-12); NEUTROPHILS % (AUTO) 64 % (40-74)
[2017-04-04] MEDS: MethylprednisoLONE Sodium Succinate 40 mg/mL Inj IVPUSH SCH (10:15)
[2017-04-04] MEDS: Pantoprazole 40 mg ER24 Tablet PO SCH (10:17)
[2017-04-04] MEDS: Acyclovir 800 mg Tablet PO SCH ×2 (10:17→20:27)
--- NOTE | 2017-04-04 12:38 | PCM.PNMED ---
Subjective Date of Service April 04, 2017 Subjective Still having diarrhea, particularly at night but it is definitely better. No chest pain, no dyspnea. Legs are slightly less swollen and she is urinating but not as much as one would expect. Exam Vital Signs Vital Sign - Last Date Time Temp Pulse Resp B/P Pulse Ox O2 Delivery O2 Flow Rate FiO2 04/04/17 04:49 36.6 69 20 138/74 97 Room Air Intake and Output 04/03/17 04/03/17 04/04/17 Cumulative From/Thru 15:00 23:00 07:00 04/01/17 10:02 - 04/04/17 00:56 Intake Total 350 ml 7453 ml Output Total 325 ml 3625 ml Balance 25 ml 3828 ml Intake Oral 350 ml 2250 ml IV Total 5203 ml Output Urine Total 325 ml 1975 ml Urine/Stool Mix 1650 ml # Voids 1 1 # Bowel Movements 1 9 Exam Gen.- A+ O 3 no apparent distress. Eyes- open conjunctiva clear, pupils equal nonicteric ENT- ears normal, nose normal Neck- supple/trach midline CVS-normal rate Both feet/legs are swollen and seem disproportional to the rest of her body, slightly improved versus 04/04 Lungs-respirations regular and nonlabored GI- flat Musc- moving 4 no obvious deformity Neuro- cranial nerves II through XII intact to gross examination, nonfocal Skin- warm and dry, no rashes/lesions/wounds noted Psych- pleasant and appropriate, Lab and Diagnostics Result Diagram: 04/04/17 0620 04/04/17 06 Assessment & Plan 76-year-old female with melanoma on immunotherapy developed diarrhea was admitted 04/01 04/02 meeting patient with immunotherapy induced enterocolitis being treated with steroids, hypokalemic and anemic changing IV fluids to replace potassium and will follow up labs in the morning 04/03 diarrheas letting outpatient feels better she has substantial edema. Spoke with her oncologist Dr. Nolan we are going to continue Solu-Medrol observe overnight. Her stopping IV fluids and attempting diuresis for edema/poor urinary output. 04/04 7 episodes of diarrhea last 24 hours. Is reoccurring at night, changing to prednisone 20 mg twice a day after discussion with Dr. Nolan her oncologist, Doppler legs rule out DVT for bilateral pedal edema. Pedal edema-stopping IV fluids giving dose furosemide 04/03, discussed with Dr. Santos were going ahead and getting bilateral Dopplers r/o DVT 04/04 diarrhea, POA, onset 10days after first immunotherapy with Ipilimumab for melenoma, -improved -stool PCR + negative, solumedrol 40mg IV QDay ordered by 04/02-04/04, prednisone 20 mg by mouth twice a day 04/04 -NS w/ 20meq 100cc/hr stopped 04/03 -zofran prn for n/v Anemia- likely dilutional, follow hypokalemia- replace/monitor check mag, hypokalemia corrected, magnesium low normal no changes. I do not want to replace magnesium and aggravate diarrhea. Continue to monitor 04/04 nausea, vomiting, -resolved Generalized weakness-improved Stage IIIC (Tx N1) malignant melanoma, hold Ipilimumab as above, appreciate management, continue acyclovir for herpes ppx Right-sided stage I, node-negative breast cancer. The patient's letrozole was held on March 02, 2017, during her ipilimumab therapy. presumed Polymyalgia rheumatica. will try ketorolac 15mg prn for severe pain, pantoprazole prn, pt is scheduled to see Rheumatology to confirm dx Left-sided multifocal DCIS. Irritable bowel disease.-Probably aggravating situation. Osteopenia. dispo:Patient will be admitted with inpatient status with expectation of inpatient therapy for more than 2 midnights diet:regular dvt ppx:LMWH Full code Jonathan Vazquez MD April 04, 2017 12:38
[2017-04-04 14:19] VITALS: BP 120/68; PULSE 94; RESP 18; O2SAT 95
--- NOTE | 2017-04-04 16:48 | DRSVH ---
PROCEDURE: US VENOUS LEG DUPLEX BILATERAL INDICATIONS: bilateral edema in the setting of malignancy TECHNIQUE: Real-time imaging, as well as color and pulse Doppler interrogation, were performed of the deep veins of both legs from the inguinal ligament to the popliteal fossa. COMPARISON: None. FINDINGS: The deep veins are normally compressible, and free of intraluminal thrombus. Color and pu lse Doppler demonstrate normal phasic intravascular flow. There is normal augmentation response to d istal compression maneuver. IMPRESSION: No deep venous thrombosis identified within either the left or right lower extremities. Dictated by: Roshan Brar Abrahan Interpreted: Mattie Samaniego MD on 04/04/2017 at 16:47 Transcribed by: DARRELL on 04/04/2017 at 16:48 Approved by: Mattie Samaniego M.D. on 04/04/2017 at 17:37
[2017-04-04 20:00] VITALS: BP 122/72; PULSE 83; RESP 16; O2SAT 95
[2017-04-04] MEDS: predniSONE 20 mg Tablet PO SCH (20:27)
--- NOTE | 2017-04-04 20:45 | PROG NOTE ---
[address] [address] PROGRESS NOTE PATIENT: SANDRA BATES : 1940 MR#: [id number] ADMIT: 04/01/2017 JOB ID: [id number] DATE: 04/04/2017 SUBJECTIVE: The patient is being seen today per hospital rounds. She carries a diagnosis of grade 3/4 colitis from ipilimumab therapy. The patient was recently started on methylprednisolone at 40 mg IV daily on March 31, 2017. The patient noticed a significant benefit to the IV treatment with near resolution of her daytime diarrhea, however, at night she has noticed persistent diarrhea up to 4-6 episodes. The remainder of her review of systems was otherwise negative for any fevers, chills, cough or sore throat, however, she has developed bilateral lower extremity edema. Finally, her polymyalgia rheumatica symptoms have resolved. The remainder of her review of systems was negative. PAST MEDICAL HISTORY: Significant for: 1. Stage IIIC [place] N1M malignant melanoma. 2. Right-sided stage I, node-negative breast cancer, letrozole on hold since March 02. 3. Polymyalgia rheumatica. 4. Irritable bowel disease. 5. Osteopenia. PHYSICAL EXAMINATION: Vital signs showing a weight of 48.18 kg, blood pressure 120/60, a temperature 36, pulse 94, respiratory rate is 18. She is A and O x3. In good spirits overall. Affect appropriate. PERRLA. Anicteric. Mucous membranes are moist. No erythema. Lower extremity showing 2+ bilateral edema. LABORATORY DATA: From April 04, 2017 with a white cell count of 9.5, hemoglobin 11 and a platelet count of 445. Sodium 141, potassium 4.4, serum creatinine 0.44, calcium 8.2. ASSESSMENT AND PLAN: The patient is a very pleasant, 76-year-old female developing grade 3/4 colitis as an immune-related adverse effect after one cycle of ipilimumab last administered on March 12, 2017. The patient is showing a suboptimal treatment response to Solu-Medrol at 40 mg daily IV with diarrhea resolved during the day but persistent at night. She is therefore being transitioned to prednisone 20 mg p.o. b.i.d. to start later tonight. If her diarrhea at night improves, then she would be eligible to go home on the current dose of prednisone of 20 mg p.o. b.i.d. Her lower extremity swelling is likely a combination of IV fluids as well as IV Solu-Medrol. She shows no signs of cardiac decompensation. An ultrasound of bilateral lower extremity was ordered today just to confirm the absence of any DVT prior to discharge. She should continue with Lasix as an outpatient. Followup otherwise will be scheduled as an outpatient for April 16, 2017. She otherwise had no further questions.
--- NOTE | 2017-04-05 04:01 | NUR ---
Activity Pt. reported having a couple bouts of diarrhea earlier this evening. Pt. reports however feeling better now. Son in room earlier in shift. Will continue to monitor.
[2017-04-05 05:20] VITALS: BP 154/78; PULSE 83; RESP 16; O2SAT 95
[2017-04-05] MEDS: Pantoprazole 40 mg ER24 Tablet PO SCH (07:30)
[2017-04-05] MEDS: predniSONE 20 mg Tablet PO SCH (07:52)
[2017-04-05] MEDS: Acyclovir 800 mg Tablet PO SCH (07:53)
--- NOTE | 2017-04-05 08:28 | NUR ---
Social Work: Readiness for Discharge D: EMR reviewed. Pt is on day 4 of hospitalization for intractable diarrhea, weakness per H&P. Pt is not medically stable, Oncology is adjusting pt's prednisone. Per RN, pt has been ambulating [address]. Pt is independent at baseline. Pt's spouse will provide transportation home via POV when pt is medically stable. SW does not anticipate any discharge needs at this time but will continue to follow if needs arise. A: Pt who is independent at baseline. P: Pt's spouse to transport pt home via POV when pt is medically stable. SW does not anticipate any discharge needs at this time but will continue to follow if needs arise. Matilda Chavez, ROTOFORMER BACKTENDER
[2017-04-05] MEDS ORDERED: Bismuth Subsalicylate 240 mL Suspension PO PRN (10:45)
--- NOTE | 2017-04-05 11:19 | PCM.DIMED ---
Discharge Instructions Date of Service April 05, 2017 Dates of Hospitalization April 01, 2017 at 13:07 Discharge Diagnosis Discharge Diagnosis immunotherapy induced enterocolitis Diet Discharge Diet: No restrictions Activity Discharge Activity: No restrictions Patient Instructions Patient Instructions The course of this diuresis expected the last 10-14 days easily. If diarrhea turns bloody, you develop fevers and chills, abdominal pain come to the emergency room. If you decrease your urine output and her feeling weak he may need to at least contact her provider or go to the emergency room for IV fluids. Blood work probably should be checked once or twice a week while you are having diarrhea to make sure electrolytes are not too far out of balance. Follow-up plan As noted below, please use antidiarrheal (kaopectate/immodium) agents judiciously. Follow-up Provider: Kentrell Gan MD Follow-up with PCP in: Other (call for appointment) Provider: Chester Nolan DO Follow-up in: Other (appointment scheduled 03/16) Jonathan Vazquez MD April 05, 2017 11:19
[2017-04-05] MEDS ORDERED: PRED-508 PO (11:26)
[2017-04-05] MEDS ORDERED: POTA10TA38 PO (11:26)
[2017-04-05] MEDS ORDERED: LOPE-147 PO (11:26)
[2017-04-05] MEDS ORDERED: BISMUTH SUBSALICYLATE PO (11:26)
[2017-04-05] MEDS ORDERED: TRAM-14 PO (11:26)
--- NOTE | 2017-04-05 11:26 | NUR ---
Social Work- Discharge Data: EMR reviewed. Pt is on day 4 of hospitalization for intractable diarrhea, weakness per H&P. Pt is medically stable to discharge today, discharge orders are active. SW met with pt at bedside regarding discharge plan, pt agreeable to discharge today. Pt requested that SW ask [facility] to fax prescriptions to [facility] in [place] so pt's son can pick them up prior to arriving to the hospital. SW spoke with UC regarding this, pt updated and agreeable to plan. Pt denied any questions or concerns about discharge. Pt to discharge home with son Rohit to transport via POV. No discharge needs identified. Assessment: Pt who is independent at baseline. Plan: Pt to discharge home with son Rhoit to transport via POV. No discharge needs identified. Matilda Chavez MSW
--- NOTE | 2017-04-05 14:25 | NUR ---
Discharge Pt left the floor at 14:25 in a WC w/ Kimber Spence RN. DC to home with rodger Bee. Pt's prescriptions were faxed to the [facility] as requested and patient left with hard copies. Pt provided with teaching/information on Acute Diarrhea, Loperamide HCl, Potassium Chloride, Tramadol, and Bismuth Subsalicylate. Pt left with all belongings. Pt comfortable with discharging and had no concerns. Addendum: 04/05/17 at 1433 by KIMBER SPENCE RN Agree w/ above note by AUDREY
--- NOTE | 2017-04-05 15:11 | PCM.DC.MED ---
Discharge Summary Date of Service April 05, 2017 Dates of Hospitalization Date of Hospital Admission April 01, 2017 at 13:07 Date of Discharge: April 05, 2017 Providers: Admitting Physician: Michoacano He MD Primary Care Physician: Kentrell Gan MD Attending Physician: Michoacano He MD Diagnosis at Time of Discharge Diagnosis at Time of Discharge immunotherapy induced enterocolitis Consultations onc Dr Nolan Procedures XRay, CTs & MRIs US VENOUS LEG DUPLEX BILATERAL Interpreted: Mattie Samaniego MD on 04/04/2017 at 16:47 IMPRESSION: No deep venous thrombosis identified within either the left or right lower extremities. Brief History 76-year-old female with melanoma stageIII on immunotherapy with Ipilimumab, breast CA, PMR on NSAID p/w generalized weakness, persistent nausea, vomiting, diarrhea. Patient received first cycle of Ipilimumab 03/12, about 10days later, started having nausea, vomiting, diarrhea, poor appetite, Symptoms has been on and off. nausea was controlled with valium. However, diarrhea was continued no blood, watery, no mucus. patient tried Imodium up to 6times per day but diarrhea never stopped. Since last night, pt had 4times of diarrhea, 2more in the hospital. Patient didn't have any abdominal pain during this course. had mild fever 100.9 several days ago. also noticed some lightheadedness, thirsty. patient called oncologist today, asked patient to admitted to the hospital. Patient denied eye pain, photosensitivity, patient also noticed that her regular pain in bilateral shoulder and hip pain were worse since she got Ipilimumab, pt kept taking [id number] bid wit omeprazole. appetite has been very poor due to n/v as well. no vomiting blood Hospital Course 76-year-old female with melanoma on immunotherapy developed diarrhea was admitted 04/01 04/02 meeting patient with immunotherapy induced enterocolitis being treated with steroids, hypokalemic and anemic changing IV fluids to replace potassium and will follow up labs in the morning 04/03 diarrheas letting outpatient feels better she has substantial edema. Spoke with her oncologist Dr. Nolan we are going to continue Solu-Medrol observe overnight. Her stopping IV fluids and attempting diuresis for edema/poor urinary output. 04/04 7 episodes of diarrhea last 24 hours. Is reoccurring at night, changing to prednisone 20 mg twice a day after discussion with Dr. Nolan her oncologist, Doppler legs rule out DVT for bilateral pedal edema. 04/05 patient continues to have urgency and diarrhea but remains medically stable. Her edema is a little bit better. I have received approval to give her Imodium/Kaopectate to help symptomatic relief this is expected to run a couple of weeks. She may follow up with PCP/oncologist call. If she is developing any further abdominal pain/hematochezia or getting dizzy she should come to the emergency room. Pedal edema-stopping IV fluids giving dose furosemide 04/03, discussed with Dr. Santos were going ahead and getting bilateral Dopplers r/o DVT 04/04 diarrhea, POA, onset 10days after first immunotherapy with Ipilimumab for melenoma, -improved -stool PCR + negative, solumedrol 40mg IV QDay ordered by 04/02-04/04, prednisone 20 mg by mouth twice a day 04/04 -NS w/ 20meq 100cc/hr stopped 04/03 -zofran prn for n/v Anemia- likely dilutional, follow hypokalemia- replace/monitor check mag, hypokalemia corrected, magnesium low normal no changes. I do not want to replace magnesium and aggravate diarrhea. Continue to monitor 04/04 nausea, vomiting, -resolved Generalized weakness-improved Stage IIIC (Tx N1) malignant melanoma, hold Ipilimumab as above, appreciate management, continue acyclovir for herpes ppx Right-sided stage I, node-negative breast cancer. The patient's letrozole was held on March 02, 2017, during her ipilimumab therapy. presumed Polymyalgia rheumatica. will try ketorolac 15mg prn for severe pain, pantoprazole prn, pt is scheduled to see Rheumatology to confirm dx Left-sided multifocal DCIS. Irritable bowel disease.-Probably aggravating situation. Osteopenia. dispo:Patient will be admitted with inpatient status with expectation of inpatient therapy for more than 2 midnights diet:regular dvt ppx:LMWH Full code Exam Vital Signs (Last) Date Time Temp Pulse Resp B/P Pulse Ox O2 Delivery O2 Flow Rate FiO2 04/05/17 05:20 36.7 83 16 154/78 95 Room Air Exam Gen.- A+ O 3 no apparent distress. Eyes- open conjunctiva clear, pupils equal nonicteric ENT- ears normal, nose normal Neck- supple/trach midline CVS-normal rate Both feet/legs are swollen and seem disproportional to the rest of her body, slightly improved versus 04/04 Lungs-respirations regular and nonlabored GI- flat Musc- moving 4 no obvious deformity Neuro- cranial nerves II through XII intact to gross examination, nonfocal Skin- warm and dry, no rashes/lesions/wounds noted Psych- pleasant and appropriate, Test 04/01/17 11:07 04/01/17 12:26 04/02/17 05:32 04/04/17 06:20 Hold Jasso Top Tube Received (Received) Urine Color Straw (YELLOW) Urine Appearance Clear (CLEAR,HAZY) Urine pH 5.0 (5.0-8.0) Urine Specific [place] <1.005 (1.003-1.035) Urine Protein Negativemg/dL (NEG,TRACE) Urine Glucose (UA) Negativemg/dL (NEGATIVE) Urine Ketones 40mg/dL (NEGATIVE) Urine Occult Blood Negative (NEGATIVE) Urine Nitrite Negative (NEGATIVE) Urine Bilirubin Negative (NEGATIVE) Urine Urobilinogen Normalmg/dL (NORMAL) Urine Leukocyte Esterase Negative (NEGATIVE) Urine RBC 0-2/hpf (0-2) Urine WBC 0-5/hpf (0-5) Urine Epithelial Cells Occasional/hpf (NONE-MOD) Urine Crystals None seen (NONE SEEN) Urine Bacteria None/hpf (NONE-FEW) Urine Hyaline Casts None/lpf (NONE) Urine Granular Casts None seen (NONE SEEN) Urine Waxy Casts None seen (NONE SEEN) Urine Red Blood Cell Casts None seen (NONE SEEN) Urine White Blood Cell Casts None seen (NONE SEEN) Urine Mucus None seen (None Seen) Urine Trichomonas None seen (NONE SEEN) Urine Yeast None (NONE SEEN) Urinalysis Comment None Urine Culture Reflexed Not indicated Hold Urine Received (Received) Metamyelocytes % 1% (0-0) Phosphorus Level 1.7mg/dL (2.5-4.9) Total Bilirubin 0.3mg/dL (0.0-1.2) Aspartate Amino Transf (AST/SGOT) 15U/L (0-50) Alanine Aminotransferase (ALT/SGPT) 10U/L (0-32) Alkaline Phosphatase 62U/L (25-165) Total Protein 4.3g/dL (6.4-8.4) Albumin 2.4g/dL (3.4-5.0) White Blood Count 9.5th/mm3 (3.8-10.1) Red Blood Count 3.92mil/mm3 (3.90-5.20) Hemoglobin 11.0g/dL (12.0-15.6) Hematocrit 31.8% (35.0-46.0) Mean Corpuscular Volume 81.1fL (81-100) Mean Corpuscular Hemoglobin 28.1pg (27.0-35.0) Mean Corpuscular Hemoglobin Concent 34.6% (32.0-37.0) Red Cell Distribution Width 14.5% (12.3-15.4) Platelet Count 445bil/L (150-400) Neutrophils (%) (Auto) 64% (40-74) Lymphocytes (%) (Auto) 15% (14-46) Monocytes (%) (Auto) 16% (4-12) Eosinophils (%) (Auto) 0% (0-5) Basophils (%) (Auto) 0% (0-3) Band Neutrophils % 4% (1-5) Myelocytes % 1% (0-0) Sodium Level 141mEq/L (134-144) Potassium Level 4.4mEq/L (3.5-5.2) Chloride Level 103mEq/L (97-108) Carbon Dioxide Level 24mmol/L (18-29) Blood Urea Nitrogen 8mg/dL (8-27) Creatinine 0.44mg/dL (0.57-1.00) Estimat Glomerular Filtration Rate 198mL/min (>59) Glucose Level 133mg/dL (60-99) Calcium Level 8.2mg/dL (8.5-10.1) Magnesium Level 1.8mg/dL (1.6-2.6) Discharge Medications Discharge Medications ([Restasis]) OU BID (Reported) ([Peppermint Capsules]) PO PRN (Reported) ([Vitamin B12]) 500 MG PO DAILY (Reported) Acyclovir (Acyclovir) 800 Mg Tab 800 MG PO BIDPRN (Reported) Calcium Carbonate (Tums Ultra Strength) 1,177 Mg Tab.chew 1,177 MG PO BID ( Reported) Carboxymethylcellulose Sodium (Refresh Tears) 15 Ml Drops 15 ML OP PRN (Reported ) Cholecalciferol (Vitamin D3) (Vitamin D3) 2,000 Unit Tablet 2,000 UNIT PO DAILY (Reported) Glucosamine Sulfate 2Kcl (Glucosamine) 1,000 Mg Tablet 1,500 MG PO BID (Reported ) Hyoscyamine (Hyoscyamine) 0.125 Mg Tablet 0.125 MG PO PRN (Reported) Multivitamin (Multi Vitamin Daily) 1 Each Tablet 1 EACH PO DAILY (Reported) [place]-3 Fatty Acids/Fish Oil ([place] 3 Fish Oil Softgel) 1 Each Capsule.dr 1 EACH PO DAILY (Reported) Omeprazole (Omeprazole) 20 Mg Capsule.dr 20 MG PO BID (Reported) Potassium Chloride (Potassium Chloride) 10 Meq Tab.er.prt 10 MEQ PO BID Prescribed by: INO DUENAS MD Prednisone (Deltasone) 20 Mg Tablet 20 MG PO BID Prescribed by: INO DUENAS MD Turmeric Root Extract (Turmeric) 500 Mg Capsule 500 MG PO DAILY (Reported) As needed ([Bismuth Subsalicylate]) 1 ML ORAL.SUSP 30 ML PO Q4H PRN PRN For Diarrhea or Loose Stool Prescribed by: INO DUENAS MD Loperamide HCl (Imodium A-D) 2 Mg Capsule 2 MG PO 5XD PRN PRN For Diarrhea or Loose Stool Prescribed by: INO DUENAS MD Naproxen Sodium (Naproxen Sodium) 550 Mg Tab 550 MG PO BID PRN PRN For Pain ( Reported) Tramadol (Ultram) 50 Mg Tablet 50 MG PO Q4H PRN PRN For Mild Pain Prescribed by: INO DUENAS MD Followup Plan Follow-up plan As noted below, please use antidiarrheal (kaopectate/immodium) agents judiciously. Discharge Diet: No restrictions Discharge Activity: No restrictions Patient Instructions The course of this diuresis expected the last 10-14 days easily. If diarrhea turns bloody, you develop fevers and chills, abdominal pain come to the emergency room. If you decrease your urine output and her feeling weak he may need to at least contact her provider or go to the emergency room for IV fluids. Blood work probably should be checked once or twice a week while you are having diarrhea to make sure electrolytes are not too far out of balance. Follow-up Provider: Ketnrell Gan MD Follow-up with PCP in: Other (call for appointment) Provider: Chester Nolan DO Follow-up in: Other (appointment scheduled 5/) Time spent >30min copies to: Kentrell Gan MD, Andris E MD April 05, 2017 15:11
== END 2017-04-05 14:26 | disposition home or self-care (01) | DRG 395 ==
LOC: SED 09:51 → INTOOBSV 13:07 → OSC 13:07 → OBSVTOIN 13:07 → OSC 13:31
PROVIDERS: ADMIT Internal Medicine; ATTEND Internal Medicine
DX: K52.1 Toxic gastroenteritis and colitis (principal); T45.1X5A Adverse effect of antineoplastic and immunosuppressive drugs, initial encounter; C50.911 Malignant neoplasm of unspecified site of right female breast; M35.3 Polymyalgia rheumatica; E87.6 Hypokalemia

== ENCOUNTER 2017-04-18 10:54 | Inpatient (IN) | payer MEDICARE, OTHER ==
[~2017-04-18] VITALS: Ht 154.9 cm; Wt 49.9 kg
[~2017-04-18 10:54] MED LIST changes: +BISMUTH SUBSALICYLATE PO; -DENO60DI SQ; -ESTR10TA VG; -FEM2.5T PO; +LOPE-147 PO; -MELA1TAB10 PO; +NAPR550T44 PO; +OMEP20CA11 PO; +POTA10TA38 PO; +PRED-508 PO; -PSYL3.4P5 PO; -S-AD200T6 PO; +TRAM-14 PO; -[UNRECOGNIZED DRUG - OTHER] PO
[2017-04-18 10:59] VITALS: BP 152/79; PULSE 79; RESP 16; O2SAT 98
--- NOTE | 2017-04-18 11:09 | ED.REPORT ---
HPI-General Illness Date of Service Apr 18, 2017 ED Provider: Judson Pulaski Patient is a 76 year old female with stage 4 melanoma who presents to the ED after being referred by Dr. Nolan complaining of diarrhea onset one month ago s/p her first dose of chemo treatment for stage IV cancer. She reports 12-15 episodes of diarrhea a day. Associated symptoms include hematochezia (4-5 episodes), nausea, abdominal cramps with the diarrhea, weakness, and decreased appetite. She denies fever, chills, cough, chest pain, dizziness, melena, or any other symptoms. She has been hospitalized for her symptoms April 01- and her condition improved with fluids and steroids. She was started on 20 mg of prednisone and her doctor has increased her dose to 30 and now 40 mg (4 days ago). She has not been on antibiotics. Nursing Notes Stated Complaint: DIARRHEA Chief Complaint: General Complaint Nursing Notes Reviewed: Yes Allergies: Coded Allergies: egg (Verified Allergy, Intermediate, diarrhea and cramps, 04/18/17) gluten (Verified Allergy, Mild, stomach issues, 04/18/17) lactose (Verified Allergy, Mild, diarrhea, 04/18/17) oxycodone (Verified Allergy, Unknown, NAUSEA, 04/18/17) Replaces ROXICET SOLN hydrocodone (Verified Adverse Reaction, Intermediate, nausea, 04/18/17) Scheduled Acyclovir (Acyclovir) 800 Mg Tab 800 MG PO DAILY Cyclosporine (Restasis) 1 Each Droperette 1 EACH BOTH_EYES BID Hyoscyamine (Hyoscyamine) 0.125 Mg Tablet 0.125 MG PO PRN Potassium Chloride (Potassium Chloride) 10 Meq Tab.er.prt 10 MEQ PO BID Prednisone (PredniSONE) 20 Mg Tablet 40 MG PO BID Propylene Glycol/Peg 400/Pf (Systane 0.3-0.4% Eye Drops) 1 Each Droperette 1 DROP BOTH_EYES HS Scheduled PRN ([Bismuth Subsalicylate]) 1 ML ORAL.SUSP 30 ML PO Q4H PRN PRN For Diarrhea or Loose Stool Carboxymethylcellulose Sodium (Refresh Tears) 15 Ml Drops 1 DROP BOTH_EYES 5XD PRN PRN For Eye Irritation Lorazepam (Lorazepam) 0.5 Mg Tablet 0.25 MG PO BID PRN PRN For Nausea General Time Seen by MD: 11:09 Chief Complaint Diarrhea Hx Obtained From: Patient Onset Occurred: More than a week ago... (1 month) Symptom Duration: Since onset Recent Healthcare: Recent doctor visit, Recent hospitalization Similar Sx Previous: Yes Past Medical History Past Medical History Notes: Breast cancer bilaterally Past Medical History 1. Stage IV (Tx N1) malignant melanoma. 2. Right-sided stage I, node-negative breast cancer. The patient's letrozole was held on March 02, 2017, during her ipilimumab therapy. 3. Polymyalgia rheumatica. Managed with OTC naproxen, 1 pill per day. Follow up with Rheumatology later in the week to confirm diagnosis. 4. Left-sided multifocal DCIS. 5. Irritable bowel disease. 6. Osteopenia. Past Surgical History Bilateral mastectomy lymph node removal 02/26 Smoking History Unknown if Ever Smoker Ambulatory Status Independent Review of Systems + decreased appetite, abdominal cramps Full Review of Systems Constitutional: Reports: Weakness - generalized, Denies: Chills, Fever Respiratory: Denies: Non-productive cough Cardiovascular: Denies: Chest pain GI: Reports: Diarrhea, Hematochezia, Nausea, Denies: Melena Neurologic: Denies: Dizziness Complete sys rev & neg: except as marked. Physical Exam Vital Signs Vital Signs Date Time Temp Pulse Resp B/P Pulse Ox O2 Delivery O2 Flow Rate FiO2 04/18/17 13:39 36.6 78 16 134/73 99 Room Air 04/18/17 13:36 36.6 78 16 134/73 99 Room Air 04/18/17 10:59 36.4 79 16 152/79 98 Room Air Initial VS: Reviewed, Vital signs abnormal Head / Eyes: Atraumatic, Normocephalic Neck: Full range of motion Respiratory: Breath sounds normal, Clear to auscultation, No respiratory distress Cardiovascular: Regular rate & rhythm, Heart sounds normal Abdomen / GI: Soft, Non-tender Skin: Warm, Dry Neurologic: Alert, Oriented, Nonfocal Psychiatric: Mood/affect normal, Behavior normal, Normal thought content General/Constitutional: Awake, Alert emaciated Interpretation & Diagnostics Lab Results Interpretation Result Diagram: 04/18/17 1130 04/18/17 1130 Test 04/18/17 11:30 04/18/17 11:54 White Blood Count 5.2th/mm3 (3.8-10.1) Red Blood Count 3.81mil/mm3 (3.90-5.20) Hemoglobin 10.6g/dL (12.0-15.6) Hematocrit 31.2% (35.0-46.0) Mean Corpuscular Volume 81.9fL (81-100) Mean Corpuscular Hemoglobin 27.8pg (27.0-35.0) Mean Corpuscular Hemoglobin Concent 34.0% (32.0-37.0) Red Cell Distribution Width 15.1% (12.3-15.4) Platelet Count 506bil/L (150-400) Neutrophils (%) (Auto) 75.3% (40-74) Lymphocytes (%) (Auto) 10.9% (14-46) Monocytes (%) (Auto) 12.6% (4-12) Eosinophils (%) (Auto) 0% (0-5) Basophils (%) (Auto) 0.2% (0-3) Erythrocyte Sedimentation Rate 29mm/hr (0-40) Sodium Level 128mEq/L (134-144) Potassium Level 3.9mEq/L (3.5-5.2) Chloride Level 92mEq/L (97-108) Carbon Dioxide Level 20mmol/L (18-29) Blood Urea Nitrogen 5mg/dL (8-27) Creatinine 0.40mg/dL (0.57-1.00) Estimat Glomerular Filtration Rate 221mL/min (>59) Glucose Level 143mg/dL (60-99) Lactic Acid Level 2.5mmol/L (0.4-2.0) Calcium Level 8.3mg/dL (8.5-10.1) Magnesium Level 1.8mg/dL (1.6-2.6) Total Bilirubin 0.6mg/dL (0.0-1.2) Aspartate Amino Transf (AST/SGOT) 21U/L (0-50) Alanine Aminotransferase (ALT/SGPT) 19U/L (0-32) Alkaline Phosphatase 67U/L (25-165) C-Reactive Protein 2.5mg/dL (0.0-0.5) Total Protein 5.7g/dL (6.4-8.4) Albumin 3.1g/dL (3.4-5.0) Lipase 46U/L (13-60) Urine Color Yellow (YELLOW) Urine Appearance Hazy (CLEAR,HAZY) Urine pH 5.5 (5.0-8.0) Urine Specific [place] 1.025 (1.003-1.035) Urine Protein Tracemg/dL (NEG,TRACE) Urine Glucose (UA) Negativemg/dL (NEGATIVE) Urine Ketones Negativemg/dL (NEGATIVE) Urine Occult Blood Small (NEGATIVE) Urine Nitrite Negative (NEGATIVE) Urine Bilirubin Negative (NEGATIVE) Urine Urobilinogen Normalmg/dL (NORMAL) Urine Leukocyte Esterase Negative (NEGATIVE) Urine RBC 0-2/hpf (0-2) Urine WBC 0-5/hpf (0-5) Urine Epithelial Cells Occasional/hpf (NONE-MOD) Urine Crystals Ammonium biurates (NONE Urine Bacteria None/hpf (NONE-FEW) Urine Hyaline Casts Occasional/lpf (NONE) Urine Granular Casts None seen (NONE SEEN) Urine Waxy Casts None seen (NONE SEEN) Urine Red Blood Cell Casts None seen (NONE SEEN) Urine White Blood Cell Casts None seen (NONE SEEN) Urine Mucus Present (None Seen) Urine Trichomonas None seen (NONE SEEN) Urine Yeast None (NONE SEEN) Urinalysis Comment None Urine Culture Reflexed Not indicated ECG Interpretation ECG Interpretation: rate 74 sinus rhythm normal interval and axis flipped t waves in v1,2,[address] changes Time: 12:03 Interpreted by: ED physician Re-Eval/Medical Decision Med Decision/Clinical Course The patient presents with severe diarrhea since taking her last chemotherapeutic agent. She was improving after IV steroids And when she went to oral she started to decline again. Dr. Nolan wanted to have her admitted for a gastroenterology consult. I spoke with Dr. Bright who was here in the hospital. Dr. Storey recommended cortisone 100 mg every 8 hours and a clear liquid diet. Patient had stool PCR obtained and was negative for infectious organisms. Dr. Nolan felt this is related to her chemotherapy. The patient has some mild hyponatremia but no signs of severe dehydration. Time of Eval: 12:55 Re-Evaluation/Progress Note: Rechecked patient. Discussed plan for admission. Patient understands and agrees with plan. All questions addressed at this time. Time of Eval: 13:46 Re-Evaluation/Progress Note: Updated patient on admission progress. Patient understands and agrees with plan. All questions addressed at this time. Consultation #1: Referral / Consult Name: Dane Flores MD Call Returned at: 12:47 Product Marketing Consultant: Will see patient, Agrees with eval, Agrees with plan Note: Discussed pt case with GI. Suggests clear liquid diet and hydrocortisone Agrees to consult. Consultation #2: Referral / Consult Name: Chester Nolan DO Call Returned at: 13:08 Product Marketing Consultant: Agrees with eval, Agrees with plan Note: Discussed case with patient's PCP. Consultation #3: Referral / Consult Name: Erik Vickers MD Consulted With: Hospitalist Call Returned at: 13:43 Product Marketing Consultant: Will see patient, Agrees with eval, Agrees with plan, Accepts admit Note: Discussed pt case. Accepts admit. Counseled Regarding: Diagnosis, Lab results, Need for admission Discharge & Departure Primary Impression: Adverse drug reaction Encounter type: subsequent encounter Qualified Code: T88.7XXD - Unspecified adverse effect of drug or medicament, subsequent encounter Additional Impression: Diarrhea Diarrhea type: unspecified type Qualified Code: R19.7 - Diarrhea, unspecified Disposition: ADMITTED TO HOSPITAL Discharge Condition All VS Reviewed: Yes Condition: Stable Referrals: Kentrell Gan MD (PCP) Scribe Attestation Portions of this note were transcribed by Asia Stiles. I, Dr. Roper personally performed the history, physical exam and medical decision-making; I reviewed and confirmed the accuracy of the information in the transcribed note. Signed by: Asia Stiles 04/16/17, 0619 copies to: Kentrell Gan MD, Jena M MD Apr 18, 2017 11:09 ASIA STILES Apr 18, 2017 11:25
[2017-04-18] MEDS ORDERED: 0.9% Sodium Chloride 1,000 ML IV ONE (11:15)
[2017-04-18 11:40] LABS: BASOPHILS % (AUTO) 0.2 % (0-3); EOSINOPHILS % (AUTO) 0 % (0-5); MONOCYTES % (AUTO) 12.6 % (4-12); Mean Corpuscular Hemoglobin 27.8 pg (27.0-35.0); Mean Corpuscular Volume 81.9 fL (81-100); NEUTROPHILS % (AUTO) 75.3 % (40-74); Platelet Count 506 bil/L (150-400)
[2017-04-18 12:02] LABS: ERYTHROCYTE SEDIMENTATION RATE 29 mm/hr (0-40)
[2017-04-18 12:07] LABS: Magnesium 1.8 mg/dL (1.6-2.6)
[2017-04-18 12:11] LABS: APPEARANCE,URINE HAZY (CLEAR,HAZY); COLOR,URINE YELLOW (YELLOW)
[2017-04-18 12:12] LABS: OCCULT BLOOD,URINE SMALL (NEGATIVE); PH,URINE 5.5 (5.0-8.0); UROBILINOGEN,URINE NORMAL (NORMAL)
[2017-04-18] MEDS ORDERED: Hydrocortisone 50 mg/mL 2 mL Inj IVPUSH ONE (12:55)
[2017-04-18] MEDS ORDERED: PROP1DRO BOTH_EYES (13:22)
[2017-04-18] MEDS ORDERED: PRE20 PO (13:28)
[2017-04-18] MEDS ORDERED: CYCL1DRO BOTH_EYES (13:28)
[2017-04-18 13:36] VITALS: BP 134/73; PULSE 78; RESP 16; O2SAT 99
[2017-04-18 13:39] VITALS: BP 134/73; PULSE 78; RESP 16; O2SAT 99
[2017-04-18] MEDS ORDERED: LORA0.5T PO (13:49)
[2017-04-18] MEDS ORDERED: Polyethylene Glycol (PEG) 17 Gm Powder PO PRN (14:20)
[2017-04-18] MEDS ORDERED: Alum-Mag Hydrox-Simeth 30 mL Suspension PO PRN (14:20)
[2017-04-18] MEDS ORDERED: Ondansetron 2 mg/mL 2 mL Inj IVPUSH PRN (14:20)
[2017-04-18] MEDS ORDERED: 0.9% Sodium Chloride 1,000 ML IV SCH (14:20)
[2017-04-18] MEDS ORDERED: Hydrocortisone 50 mg/mL 2 mL Inj IVPUSH SCH (14:45)
--- NOTE | 2017-04-18 14:47 | PCM.HPMED ---
Subjective Date of Service Apr 18, 2017 Primary Provider: Admitting Physician: Erik Vickers MD Primary Care Physician: Kentrell Gan MD Attending Physician: Erik Vickers MD Admit Status: From the Emergency Department, Full Admit, Admit to Red Team Chief Complaint: Worsening diarrhea/5 days History of Present Illness: Diane is a pleasant 76 yrs old lady with past medical history of breast cancer, melanoma, PMR, IBS came to emergency room due to worsening of diarrhea of 5 days. She has extensive oncologic history of breast cancer and melanoma. She was diagnosed with breast cancer x3 and melanoma. She was diagnosed with Right- sided breast cancer (DCIS) at age 49 in 1989 and underwent lumpectomy and radiation. 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 She was again diagnosed with recurrence of breast cancer 5 years ago. She was on letrozole until recently and discontinued by Dr Nolan a month ago due to worsening of her PMR shoulder pain per patient but due to initiation of immunotherapy for melanoma per prior admission note She was recently diagnosed with stage IIIC melanoma(TXN1) in February and was started on immunotherapy Ipilimumab . She received her first cycle month ago. She was admitted from 04/01 - 04/05 due to diarrhea secondary to immunotherapy. She was discharged on prednisone 20 mg bid. She had some improvement of diarrhea initially but started to have worsening of her diarrhea since last Sunday. She is having 12-15 episodes of watery diarrhea per day. She also had episodes of blood mixed with diarrhea in the last 3 days. She has nausea but no vomiting. Denies fever. She was seen by Dr. Nolan on Sunday and he increased her prednisone to 40 mg by mouth twice a day but continued to have diarrhea 12-15 episodes /d which prompted ED visit. ED course: Vitals and exam unremarkable. No leukocytosis.Na 122, creatinine 0.4 , lactic acid 2.5. Stool PCR negative.Gi consulted by ED and recommended hydrocortisone 100 mg IV every 8h Review of Systems: A comprehensive review of systems performed, pertinent positives and negatives included in history of present illness Allergies Coded Allergies: egg (Verified Allergy, Intermediate, diarrhea and cramps, 04/18/17) gluten (Verified Allergy, Mild, stomach issues, 04/18/17) lactose (Verified Allergy, Mild, diarrhea, 04/18/17) oxycodone (Verified Allergy, Unknown, NAUSEA, 04/18/17) Replaces ROXICET SOLN hydrocodone (Verified Adverse Reaction, Intermediate, nausea, 04/18/17) Home Medications Valacyclovir 1 tablet daily Prednisone 40 mg.po bid restasis eye drop Loperamide, she discontinued due to cramps Potassium chloride 10mew bid PMH 1. Stage IIIC (Tx N1) malignant melanoma. 2. Right-sided stage I, node-negative breast cancer. The patient's letrozole was held on March 02, 2017, during her ipilimumab therapy. 3. Polymyalgia rheumatica. Managed with OTC naproxen, 1 pill per day.currently pain much better due to steroids 4. Left-sided multifocal DCIS. 5. Irritable bowel disease. More constipation than diarrhea 6. Osteopenia. Surgical History mastectomy and lumpectomy Left axillary excisional lymph node biopsy Family History father of aneurysm at 63 sister of aneurysm at 63 mother of stroke Social History Hx Alcohol Use: Yes Alcoholic Drinks Per Day: UP TO 3 A WEEK, WINE Hx Substance Use: No Smoking Status: Unknown if Ever Smoker Exam Vital Signs Vital Sign - Last Date Time Temp Pulse Resp B/P Pulse Ox O2 Delivery O2 Flow Rate FiO2 04/18/17 13:39 36.6 78 16 134/73 99 Room Air Exam Gen. patient is lying comfortably in hospital bed HEENT: Head is normocephalic atraumatic, dry tongue Lungs clear to auscultation bilaterally Heart regular rate and rhythm without murmurs gallops or rubs Abdomen soft nontender without hepatosplenomegaly Extremities pulses are present dorsalis pedis posterior tibialis and radial. tSkin is warm and dry there are no rashes, Psych alert and oriented to person place and time Neuro cranial nerves II through XII are grossly intact Lymph: There is no lymphadenopathy appreciated in the cervical supra infraclavicular regions : no cervantes Lab and Diagnostics Result Diagram: 04/18/17 1130 04/18/17 1130 Assessment & Plan Diane is a pleasant 76 yrs old lady with past medical history of breast cancer, melanoma, PMR, IBS came to emergency room due to worsening of diarrhea of 5 days. # Diarrhea, acute on chronic,poa -Due to Ipilimumab -stool pcr negative,LA 2.5 -NS at 100ml/h -Hydrocortisone 100mg iv q8h per GI -loperamide prn -GI Dr Flores consulted by ED # Hyponatremia -Due to hypovolemia -NS at 100ml/h -BMP in am # Recently diagnosed melanoma -1st cycle of immunotherapy given a month ago. Treatment remains on hold due to side effect # PMR -Pain much better now due to steroids per patient #History of breast cancer -letrozole discontinued a month ago for unclear reason -Dr Nolan following #ppx -Lovenox,ppi given steroid Patient admitted under inpatient status with expected length of stay > 2 midnights for severity of present symptoms, complexities of treatment plan and risk for adverse events DNR/DNI ,patient interested to fill in POLST,will fill in POLST Resuscitation Status: DNR/DNI:Do Not Resuscitate/Intubate copies to: Chester Nolan DO; Kentrell Gan MD, Melaku MD Apr 18, 2017 14:47
[2017-04-18 15:03] VITALS: BP 147/70; PULSE 78; RESP 18; O2SAT 100
[2017-04-18] MEDS ORDERED: Pantoprazole 20 mg ER24 Tablet PO SCH (15:15)
[2017-04-18 15:39] VITALS: PULSE 92
[2017-04-18] MEDS: Pantoprazole 20 mg ER24 Tablet PO SCH (16:40)
--- NOTE | 2017-04-18 18:06 | NUR ---
Case Management: IMM explained to patient at 1750, all questions answered. Signed original placed in chart, copy given to patient. Vlad Dacosta RN
--- NOTE | 2017-04-18 18:38 | NUR ---
Admit Pt arrived to [facility] at 1500 via stretcher. Pt ambulated to bed w/ ease. Pt A&Ox3, not having any pain, and is a very pleasant woman. Pt oriented to room, bathroom and call light.
[2017-04-18 20:05] VITALS: BP 173/85; PULSE 79; RESP 17; O2SAT 97
[2017-04-18] MEDS: Hydrocortisone 50 mg/mL 2 mL Inj IVPUSH SCH (20:35)
--- NOTE | 2017-04-18 20:50 | PROG NOTE ---
[address] [address] PROGRESS NOTE PATIENT: SANDRA BATES : 1940 MR#: [id number] ADMIT: 04/18/2017 JOB ID: [id number] DATE: 04/18/2017 SUBJECTIVE: The patient is being seen today per hospital rounds. She carries a diagnosis of malignant melanoma status post one cycle of ipilimumab last administered on March 15, 2017. Patient's treatment has been complicated by grade 3 diarrhea over the past two weeks. The patient was recently discharged from the hospital in March 2017 after responding to IV prednisone at 1 mg/kg within three days. Since being discharged from the hospital, she has, unfortunately, had progression of her diarrhea despite a recent increase of her dose to 30 mg p.o. b.i.d. on April 13, 2017. In addition, over the past two days, she has noted some blood in her stool and has been more symptomatic with cramping. Finally, she has had a significant decrease of her p.o. intake. ADMISSION LABORATORY DATA: On April 18, 2017 showing a white cell count of 5.2, hemoglobin of 10.6 with an MCV of 81.9 and a platelet count of 506. Sodium 128, potassium 3.9, serum creatinine 0.4, lactic acid was 2.5, calcium 8.3, AST 21, ALT 19. The patient was subsequently started on hydrocortisone 100 mg IV and over the past 3 hours has not had an episode of diarrhea. Her cramping is also improved. The remainder of her review of systems at this time is otherwise negative. PHYSICAL EXAMINATION: Vital signs reporting a weight of 44.5 kg which is stable compared to her last clinic visit on April 16, 2017 at which time her weight was 44.6 kg, however, down approximately 6 kg from baseline weight in March 12, 2017 at 51.3. Blood pressure was 147/70, temperature 36, pulse is 78, respiratory rate is 18 and she is saturating 100% room air. She is A and O x3. In good spirits overall. Affect appropriate although she looks slightly dehydrated. PAST MEDICAL HISTORY: Significant for: 1. Stage IIIC TX N1) malignant melanoma status post one cycle of ipilimumab in the adjuvant setting of 3 mg/kg last administered on March 15, 2017. The patient's treatment continues to be complicated by grade 3 diarrhea, steroid responsive. 2. Right-sided stage I, node-negative breast cancer. The patient's letrozole on hold since March 02, 2017. 3. Polymyalgia rheumatica. 4. Left-sided multifocal DCIS. 5. Irritable bowel syndrome. 6. Osteopenia. Complete details regarding the above are outlined in my clinic note dated February 21, 2017 under the [facility]. ASSESSMENT AND PLAN: The patient is a very pleasant, 76-year-old female with immune-related adverse effects to her ipilimumab last administered in March 15, 2017 with grade 3 diarrhea. The patient remains steroid responsive, however, was likely not absorbing her p.o. prednisone at home due to increased transit time. Since being in the hospital and receiving her first dose of IV hydrocortisone, she has not had an episode of diarrhea for the past 3 hours and her cramping is improved. GI has also been consulted and their input is greatly appreciated. The patient at this time does not meet any criteria for therapy which would be administered if she becomes steroid resistant. The plan is to continue with her hydrocortisone 100 mg IV q.8 h. for at least three days. She should then be transitioned to p.o. prednisone at 30 mg p.o. b.i.d. and watch for 24 hours prior to discharge to confirm response. IV fluid should be given at 1 L of normal saline daily but would recommend against continuous IV fluid given her significant lower extremity swelling that occurred with her last hospital admission. Finally, a dietary consultation was ordered today. I will be at [facility] on April 19 through April 20. Please call me if there are any other questions. My number is [phone].
--- NOTE | 2017-04-18 21:30 | NUR ---
Pt. on and off floor for X-ray Pt. off floor for X-ray around 2114 via wheelchair. Pt. back on [facility] floor around 2129 from x-ray.
--- NOTE | 2017-04-18 23:33 | CONS ---
[address] [address] CONSULTATION REPORT PATIENT: SANDRA BATES : 1940 MR#: [id number] ADMIT: 04/18/2017 JOB ID: [id number] DATE OF SERVICE: 04/18/2017 REQUESTING PROVIDER: Yael Roper MD. REASON FOR CONSULTATION: Diarrhea. HISTORY OF PRESENT ILLNESS: This is a 76-year-old female with stage IV melanoma. She has a longstanding history of constipation-predominant irritable bowel syndrome. She had a colonoscopy some 10 years ago and does not recall any significant findings. She was started on ipilimumab. This was started at the beginning of March. Typical dosing is every three weeks. However, by two weeks in, she started to develop symptoms of significant diarrhea. Her dose at week three was not administered. She was actually briefly hospitalized here at [facility] for the symptoms of diarrhea late last month. At the time, she was discharged on 20 mg prednisone twice daily and, unfortunately, needed a dose escalation. Prior to admission here today, she was up to 40 mg twice per day and continued to have approximately 15 trips to the toilet every day. It sounds, however, like some of this is related to tenesmus as she does not always produce a significant volume of stool. She has been on a clear liquid diet, is currently not hungry, but otherwise no abdominal pain apart from crampiness when she feels that she has to have a bowel movement. There has been a scant amount of blood in the stool. Stool PCR for enteric pathogens was negative. ALLERGIES: 1. EGG GLUTEN. 2. HYDROCODONE. 3. LACTOSE. 4. OXYCODONE. MEDICATIONS: 1. Ipilimumab as described above. 2. Prednisone 40 mg twice a day. 3. Additionally, she was on acyclovir. 4. Levsin. 5. Lorazepam. 6. Potassium chloride. 7. Refresh eye drops. 8. Cyclosporine eye drops. 9. Systane eye drops. 10. Pepto-Bismol. 11. Tums. 12. Vitamin D 3. 13. Glucosamine 14. P.r.n. Imodium. 15. Multivitamin. 16. Naproxen. 17. Union-3 fatty acids. 18. Omeprazole. 19. Tramadol. 20. Tumeric root. 21. Peppermint. 22. Vitamin B12. PAST MEDICAL HISTORY: Stage IV melanoma breast cancer, PMR, irritable bowel, osteopenia, mastectomy, lumpectomy, left axillary excisional lymph node biopsy. FAMILY HISTORY: Noncontributory. SOCIAL HISTORY: Occasional alcohol. REVIEW OF SYSTEMS: The patient is currently not hungry. She is not having a substantial amount of actual stool, but reports that she is just not eating all that much. Otherwise, she has had a little bit of lower extremity edema. There was no report of any fever. She has had an element of nausea. There has been no vomiting. Her cramping is high in the epigastrium. PHYSICAL EXAMINATION: Blood pressure 147/70, pulse 78, breathing 18, temperature 36.6, 100% on room air. The patient is in no distress. Alert, oriented, appropriate, cooperative, conversational. Abdomen is soft, nontender. Perhaps trace lower extremity edema bilaterally. Good air entry. Breathing comfortably. Not tachycardic. Sclerae anicteric. Alert, cooperative, conversational, ambulatory in her room. LABORATORY DATA: White count is 5.2, hemoglobin 10.6, platelets 506, MCV 81.9, sodium 128, potassium 3.9, chloride 92, bicarb 20, BUN 5, creatinine 0.4, glucose 143, lactate 2.5, calcium 8.3, bilirubin 0.6, AST 21, ALT 19, alk phos 67, albumin 3.1, lipase 46, C. reactive protein 2.5. Urinalysis negative. Stool as above. ASSESSMENT AND PLAN: This is a 76-year-old female with ipilimumab-induced diarrhea. This medication has been linked with immunogenic enteral colitis. Infectious etiology has essentially been excluded by PCR. Occasionally, these patients do need to be considered for anti-tumor necrosis factor medication such as Remicade if they have either failed a 3-5 day course of systemic corticosteroids or they have had recurrence of symptoms after symptomatic improvement. I will update the chest x-ray, obtain hepatitis B serologies, and a QuantiFERON Gold in advance of Remicade therapy. For now, I like the idea of the IV hydrocortisone simply to see if this gives her a little traction where she may actually then once again respond to the oral prednisone taper. In the interim, I think perhaps a direct look with a flexible sigmoidoscopy would be appropriate and biopsies of anything that appears inflammatory for histopathologic confirmation. This is being scheduled for tomorrow.
[2017-04-19] VITALS (10 sets, daily range): BP systolic 140–162; BP diastolic 63–90; PULSE 84–108; RESP 14–18; O2SAT 96–100
--- NOTE | 2017-04-19 03:25 | NUR ---
Teaching Pt. had several questions about SCDs, medications given, and test/ procedures. Education given. Pt. voiced understanding. Will continue to monitor.
[2017-04-19] MEDS: Hydrocortisone 50 mg/mL 2 mL Inj IVPUSH SCH ×3 (05:29→20:51)
[2017-04-19 05:37] LABS: BASOPHILS % (AUTO) 0 % (0-3); EOSINOPHILS % (AUTO) 0 % (0-5); Mean Corpuscular Hemoglobin 27.7 pg (27.0-35.0); Mean Corpuscular Volume 81.5 fL (81-100); NEUTROPHILS % (AUTO) 50.9 % (40-74); Platelet Count 598 bil/L (150-400)
[2017-04-19 05:59] LABS: Magnesium 1.8 mg/dL (1.6-2.6)
[2017-04-19] MEDS ORDERED: LORazepam 0.5 mg Tablet PO ONE (07:00)
--- NOTE | 2017-04-19 08:05 | PCM.PNMED ---
Subjective Date of Service Apr 19, 2017 Subjective Frequency of diarrhea improving. She complains of lower abdominal colicky pain. Afebrile. Nausea improving. She is going for flex sigmoidoscopy Exam Vital Signs Vital Sign - Last Date Time Temp Pulse Resp B/P Pulse Ox O2 Delivery O2 Flow Rate FiO2 04/19/17 05:17 85 04/19/17 05:10 36.7 17 158/90 97 Room Air Intake and Output 04/18/17 04/18/17 04/19/17 Cumulative From/Thru 15:00 23:00 07:00 04/18/17 10:59 - 04/19/17 06:54 Intake Total 1000 ml 300 ml 200 ml 1500 ml Output Total 100 ml 100 ml Balance 1000 ml 300 ml 100 ml 1400 ml Intake Oral 300 ml 200 ml 500 ml IV Total 1000 ml 1000 ml Output Urine Total 100 ml 100 ml # Voids 3 3 # Bowel Movements 2 7 9 Exam Gen. patient is lying comfortably in hospital bed HEENT: Head is normocephalic atraumatic, dry tongue Lungs clear to auscultation bilaterally Heart regular rate and rhythm without murmurs gallops or rubs Abdomen soft nontender without hepatosplenomegaly Extremities pulses are present dorsalis pedis posterior tibialis and radial. tSkin is warm and dry there are no rashes, Psych alert and oriented to person place and time Neuro cranial nerves II through XII are grossly intact Lymph: There is no lymphadenopathy appreciated in the cervical supra infraclavicular regions : no cervantes IVs and Medications Medications Reviewed: Medications were reviewed in detail Lab and Diagnostics Result Diagram: 04/19/17 0450 04/19/17 0450 Assessment & Plan Diane is a pleasant 76 yrs old lady with past medical history of breast cancer, melanoma, PMR, IBS came to emergency room due to worsening of diarrhea of 5 days. # Diarrhea, acute on chronic,poa -Due to Ipilimumab -stool pcr negative,LA 2.5 -NS at 100ml/h -Hydrocortisone 100mg iv q8h for 2-3 days then transition to by mouth prednisone -loperamide prn -GI Dr Flores consulted by ED, planning to do flex sigmoidoscopy today # Hyponatremia, improving -Due to hypovolemia -NS at 100ml/h -BMP in am # Recently diagnosed melanoma -1st cycle of immunotherapy given a month ago. Treatment remains on hold due to side effect # PMR -Pain much better now due to steroids per patient #History of breast cancer -letrozole discontinued a month ago for unclear reason -Dr Nolan following #ppx -Lovenox,ppi given steroid Patient admitted under inpatient status with expected length of stay > 2 midnights for severity of present symptoms, complexities of treatment plan and risk for adverse events DNR/DNI ,patient interested to fill in POLST,will fill in POLST Disposition: Patient will be on IV hydrocortisone for 2-3 days and will be transitioned to by mouth prednisone 30 mg po bid . She will be in hospital 3-4 days VTE Mechanical Devices: Intermittant Pneumatic CD Resuscitation Status: DNR/DNI:Do Not Resuscitate/Intubate Erik Vickers MD Apr 19, 2017 08:04
[2017-04-19] MEDS: Pantoprazole 20 mg ER24 Tablet PO SCH ×2 (08:21→20:51)
--- NOTE | 2017-04-19 10:41 | DRSVH ---
PROCEDURE: X-RAY CHEST, TWO VIEWS ([id number]) INDICATIONS: high risk medicaiton pending TECHNIQUE: 2 views of the chest were acquired. COMPARISON: [facility], MASTER, CHEST 2VW, 02/11/2013, 10:52. [facility], MASTER, CH EST 2VW, 02/12/2013, 17:23. FINDINGS: Surgical changes and devices: Left breast and axillary surgical clips. Lungs and pleura: No pleural effusions or pneumothorax. Lungs are clear. Lung volumes are increase d with flattening of the hemidiaphragms suggesting COPD. Mediastinum: Mediastinal contours are normal. Heart size is enlarged. Bones and chest wall: No suspicious bony abnormalities. Soft tissues appear unremarkable. IMPRESSION: Hyperinflation suggesting COPD. No acute cardiopulmonary process. Dictated by: Roshan URBINA Interpreted: Mattie Samaniego MD on 04/19/2017 at 10:10 Approved by: Mattie Samaniego M.D. on 04/19/2017 at 10:39
[2017-04-19] MEDS ORDERED: Sodium Biphos-Phos 133 mL Enema RECTAL PRN (13:40)
--- NOTE | 2017-04-19 13:46 | NUR ---
NUTRITION ASSESSMENT: ASSESS: 76YO F admit with recurrent diarrhea s/p immunotherapy treatment for melanoma, on clear liquids for sigmoidoscopy. Consult received re pt multiple food intolerances and recent weight loss. Pt reports appetite okay at home but has been limited to liquid foods only 2/2 abdominal pain and diarrhea. PMHX: Breast CA s/p lumpectomy,radiation thx, recent dx Melanoma in February, DIET: Clear Liquid. Pt reports intolerances (causes abdominal pain) with lactose,gluten,eggs,blueberries,coffee,sesame seeds,cranberry. LABS: Alb 3.1, GLu 113, Na 132 MEDS: Reviewed. Prednisone GI:7 BM WEIGHT: 45.9kg BMI: 19.1; Wt in March-48kg, reported UBW of 50k.1kg wt loss x 1mos EST.NEEDS: WT GAIN (30-35kcal/kg;1.2-1.5g/kg IBW) Kcal: 3580-9185 Pro: 60-70g NUTRITION DIAGNOSIS: (1) Altered GI tract function related to lpilimumab medication per MD notes as evidenced by persistent diarrhea. INTERVENTION: (1) Spoke with pt at length re multiple food intolerances. Reviewed high kcal/protein foods within pt dietary restrictions. (2) special education aide notified of food intolerances. MONITOR/EVALUATE: Diet advancement s/p procedure, po intake, lab values, weight. F/U per moderate risk.
--- NOTE | 2017-04-19 14:15 | NUR ---
To Bianca Patient off floor to endoscopy via wheelchair. Report given to SHARMILA Angeles. Fleets enema #1 at 1330 and planned to repeat again at 1430. Enema sent with SHARMILA Angeles to bianca.
--- NOTE | 2017-04-19 14:22 | NUR ---
Social Work: Initial Assessment D: EMR reviewed. Pt is a 76 y/o female admitted for adverse medication reaction, diarrhea per H&P. ROGER met with pt and bedside to conduct initial assessment. Pt was alert and oriented x3. SW confirmed pt has completed DPOA/advanced directive ppw and encouraged pt to provide completed copy to the hospital. Pt's spouse/DPOA (Jv Pettit [phone]) is pt's primary contact and can be contacted for discharge planning. Pt's insurance is Medicare and [employer]. Pt's PCP is Kentrell Gan MD. Pt has no HH or SNF hx. Pt does not have LTC insurance or VA benefits. Pt does not own or use any DME. Pt is independent with ADLs. Pt drives. Pt is independent at baseline. Pt confirmed her spouse will provide transport home via POV when pt is medically stable. SW does not anticipate any discharge needs at this time but will continue to follow if needs arise. A: Pt who is independent at baseline P: Pt confirmed her spouse will provide transport home via POV when pt is medically stable. SW does not anticipate any discharge needs at this time but will continue to follow if needs arise. RASHAD Aponte Addendum: 04/19/17 at 1429 by WENDI AVENDAÑO Amended: Links added. Addendum: 04/19/17 at 1447 by WENDI CARRERO Pt lives with her spouse in a multi-story home, with 2 steps to enter and 13 steps to the second level, on [facility].
[2017-04-19] MEDS ORDERED: fentaNYL-PF 50 mCg/mL 2 mL Inj ONE (14:36)
[2017-04-19] MEDS: 0.9% Sodium Chloride 1,000 ML IV SCH ×4 (14:40→17:18)
[2017-04-19] MEDS ORDERED: fentaNYL-PF 50 mCg/mL 2 mL Inj IVPUSH PRN (14:40)
--- NOTE | 2017-04-19 15:52 | NUR ---
Back to floor Patient back to floor from endoscopy. Elevated BP and heart rate. Patient states she feels groggy but denies any pain. Lying in bed. Hourly rounding continues.
--- NOTE | 2017-04-19 15:54 | NUR ---
Heart rate Patient back from endoscopy with a heart rate 101 lying in bed with elevated BP. Per report from chava Angeles RN patient was in and out of SVT 10 times during the procedure with a heart rate in the 140s. Paged MD about heart rate and rhythm. Telemetry ordered and placed on patient. EKG and labs ordered. Continuing to monitor patient condition.
[2017-04-19 16:39] LABS: EOSINOPHILS % (AUTO) 0 % (0-5); Mean Corpuscular Hemoglobin 28.3 pg (27.0-35.0); Mean Corpuscular Volume 82.5 fL (81-100); Platelet Count 596 bil/L (150-400)
[2017-04-19 17:21] LABS: BASOPHILS % (AUTO) 0 % (0-3); MONOCYTES % (AUTO) 2 % (4-12); NEUTROPHILS % (AUTO) 77 % (40-74)
[2017-04-19 17:24] LABS: TROPONIN T < 0.010 ug/L (0.0-0.011)
[2017-04-19 17:25] LABS: Magnesium 1.8 mg/dL (1.6-2.6); Phosphorus 1.8 mg/dL (2.5-4.9)
[2017-04-19] MEDS ORDERED: Potassium Chloride 20 mEq SR Tablet PO ONE (18:15)
[2017-04-20] VITALS (16 sets, daily range): BP systolic 101–179; BP diastolic 56–82; PULSE 74–100; RESP 18; O2SAT 95–99
--- NOTE | 2017-04-20 00:14 | ENDO ---
[address] [address] ENDOSCOPY PROCEDURE PATIENT: SANDRA BATES : 1940 MR#: [id number] ADMIT: 04/18/2017 JOB ID: [id number] DATE OF PROCEDURE: 04/18/2017 PRIMARY PROVIDER: Kentrell Gan MD. PROCEDURE: Colonoscopy with biopsies. INDICATIONS: A 76-year-old female with severe diarrhea following the initiation of ipilimumab. She has only been partially responsive to steroids. EQUIPMENT: [employer]. SEDATION: 1. Versed 5 mg. 2. Fentanyl 100 mcg. COMPLICATIONS: None identified. BOWEL PREPARATION: Excellent with a single Fleet's. PROCEDURE INFORMATION: After the risks and benefits were explained, written and verbal informed consent was obtained. The patient was brought into the endoscopy suite and placed into the left lateral decubitus position. Sedation was achieved as above. A digital rectal examination accomplished. Mild internal hemorrhoids noted. The scope was then introduced into the rectum and advanced with great difficulty to about 35 cm from the anal verge in the sigmoid. The patient had a very tortuous bowel. It was inflamed and she demonstrated suboptimal tolerance with intermittent SVT into the high 140s, low 150s. She would respond with Valsalva. We did not make an effort to push beyond this depth in that we already had clear-cut evidence of proctocolitis. Biopsies were acquired. The scope was withdrawn. Patient tolerated the procedure reasonably well. The bowel was decompressed prior to removing the scope. FINDINGS: Mild proctitis characterized by exudate, erythema, loss of vascular pattern. There were punctate ulcerations. This became a little more intense just beyond the rectosigmoid through the sigmoid colon. We took a couple of biopsies from the sigmoid for histopathologic confirmation. As mentioned above, we did not attempt to navigate beyond 35 cm secondary to patient's heart rate intermittently spiking at 150 beats per minute.. ENDOSCOPIC DIAGNOSIS: Proctocolitis. RECOMMENDATIONS: 1. Await histopathology. 2. Continue IV hydrocortisone. 3. Hepatitis B serology and QuantiFERON Gold results are still pending. There was hyperinflation on the chest x-ray suggesting COPD but otherwise no acute cardiopulmonary abnormalities. Ideally, I would like to see these results returned prior to first dose of Remicade. Perhaps we could see how she responds clinically with the IV steroids over the next 24 hours and if she is not substantially better get the first dose on board while we await the results of some of the testing.
--- NOTE | 2017-04-20 03:23 | NUR ---
Activity/Pain Patient up to BR independently. Gait steady. Denies lightheadedness/dizziness. No c/o pain or discomfort all of this shift so far. HR ranging from 70s-80s this shift.
[2017-04-20] MEDS: Hydrocortisone 50 mg/mL 2 mL Inj IVPUSH SCH ×3 (04:43→22:07)
[2017-04-20] MEDS: 0.9% Sodium Chloride 1,000 ML IV SCH (05:55)
[2017-04-20] MEDS ORDERED: Sodium Phosphate Inj 20 MEQ in Dextrose 5% 250 ML IV ONE (06:55)
[2017-04-20] MEDS: Pantoprazole 20 mg ER24 Tablet PO SCH ×2 (08:20→22:07)
--- NOTE | 2017-04-20 10:17 | PCM.PNMED ---
Subjective Date of Service Apr 20, 2017 Subjective Frequency of the diarrhea is getting better. Continues to have abdominal pain. She had multiple episodes of SVTs during sigmoidoscopy and also on ambulation to bath room GI considering Remicade if continues to have diarrhea. quantiferon gold TB pending Exam Vital Signs Vital Sign - Last Date Time Temp Pulse Resp B/P Pulse Ox O2 Delivery O2 Flow Rate FiO2 04/20/17 08:23 36.8 74 18 125/74 96 Room Air Intake and Output 04/19/17 04/19/17 04/20/17 Cumulative From/Thru 15:00 23:00 07:00 04/18/17 10:59 - 04/20/17 06:09 Intake Total 1309 ml 520 ml 3329 ml Output Total 700 ml 700 ml 1500 ml Balance 609 ml -180 ml 1829 ml Intake Oral 820 ml 520 ml 1840 ml IV Total 489 ml 1489 ml Output Urine Total 700 ml 800 ml Urine/Stool Mix 700 ml 700 ml # Voids 3 # Bowel Movements 4 0 13 Exam Gen. patient is lying comfortably in hospital bed HEENT: Head is normocephalic atraumatic, dry tongue Lungs clear to auscultation bilaterally Heart regular rate and rhythm without murmurs gallops or rubs Abdomen soft nontender without hepatosplenomegaly Extremities pulses are present dorsalis pedis posterior tibialis and radial. Skin is warm and dry there are no rashes, Psych alert and oriented to person place and time Neuro cranial nerves II through XII are grossly intact Lymph: There is no lymphadenopathy appreciated in the cervical supra infraclavicular regions : no cervantes IVs and Medications Medications Reviewed: Medications were reviewed in detail Lab and Diagnostics Result Diagram: 04/19/17 1626 04/19/17 1626 Additional Diagnostics DATE OF PROCEDURE: 04/18/2017 PRIMARY PROVIDER: Kentrell Gan MD. PROCEDURE: Colonoscopy with biopsies. INDICATIONS: A 76-year-old female with severe diarrhea following the initiation of ipilimumab. She has only been partially responsive to steroids. EQUIPMENT: [facility]-H180VT. SEDATION: 1. Versed 5 mg. 2. Fentanyl 100 mcg. COMPLICATIONS: None identified. BOWEL PREPARATION: Excellent with a single Fleet's. PROCEDURE INFORMATION: After the risks and benefits were explained, written and verbal informed consent was obtained. The patient was brought into the endoscopy suite and placed into the left lateral decubitus position. Sedation was achieved as above. A digital rectal examination accomplished. Mild internal hemorrhoids noted. The scope was then introduced into the rectum and advanced with great difficulty to about 35 cm from the anal verge in the sigmoid. The patient had a very tortuous bowel. It was inflamed and she demonstrated suboptimal tolerance with intermittent SVT into the high 140s, low 150s. She would respond with Valsalva. We did not make an effort to push beyond this depth in that we already had clear-cut evidence of proctocolitis. Biopsies were acquired. The scope was withdrawn. Patient tolerated the procedure reasonably well. The bowel was decompressed prior to removing the scope. FINDINGS: Mild proctitis characterized by exudate, erythema, loss of vascular pattern. There were punctate ulcerations. This became a little more intense just beyond the rectosigmoid through the sigmoid colon. We took a couple of biopsies from the sigmoid for histopathologic confirmation. As mentioned above, we did not attempt to navigate beyond 35 cm secondary to patient's heart rate intermittently spiking at 150 beats per minute.. ENDOSCOPIC DIAGNOSIS: Proctocolitis. RECOMMENDATIONS: 1. Await histopathology. 2. Continue IV hydrocortisone. 3. Hepatitis B serology and QuantiFERON Gold results are still pending. There was hyperinflation on the chest x-ray suggesting COPD but otherwise no acute cardiopulmonary abnormalities. Ideally, I would like to see these results returned prior to first dose of Remicade. Perhaps we could see how she responds clinically with the IV steroids over the next 24 hours and if she is not substantially better get the first dose on board while we await the results of some of the testing. Dane Flores MD 04/19/17 4408 Assessment & Plan Diane is a pleasant 76 yrs old lady with past medical history of breast cancer, melanoma, PMR, IBS came to emergency room due to worsening of diarrhea of 5 days. # Diarrhea, acute on chronic,poa -Due to Ipilimumab -stool pcr negative, initial LA 2.5 -NS at 75 ml/h -Hydrocortisone 100mg iv q8h for 2-3 days then transition to by mouth prednisone. Frequency of diarrhea is getting better but continues to have 6-10 episodes a day.GI considering Remicade if continues to have diarrhea. quantiferon gold TB pending -s/p sigmoidoscopy 6/8 which shows Proctocolitis. -loperamide prn -GI Dr Flores consulted by ED, planning to do flex sigmoidoscopy today #Episodes of SVTs -Probably due to electrolyte disturbance -Hypokalemia repleted -Recheck electrolytes today -12 lead ekg unremarkable # Hyponatremia, improving -Due to hypovolemia -NS at 100ml/h # Bandemia -Bandemia of 10% of noted. Afebrile. No leukocytosis. Pro calcitonin negative. Initial stool PCR negative. No evidence of infection as well. -CBC daily # Recently diagnosed melanoma -1st cycle of immunotherapy given a month ago. Treatment remains on hold due to side effect # PMR -Pain much better now due to steroids per patient #History of breast cancer -letrozole discontinued a month ago for unclear reason -Dr Nolan following #ppx -Lovenox,ppi given steroid Patient admitted under inpatient status with expected length of stay > 2 midnights for severity of present symptoms, complexities of treatment plan and risk for adverse events DNR/DNI ,patient interested to fill in POLST,will fill in POLST Disposition: Patient will be on IV hydrocortisone for 2-3 days and will be transitioned to by mouth prednisone 30 mg po bid . She will be in hospital 3-4 days pending improvement of diarrhea VTE Mechanical Devices: Intermittant Pneumatic CD Resuscitation Status: DNR/DNI:Do Not Resuscitate/Intubate Erik Vickers MD Apr 20, 2017 10:17
--- NOTE | 2017-04-20 10:29 | NUR ---
Heart Rate Per telemetry patient's heart rate was 140s-160s while up in the bathroom and came back down to [id number] once back in bed. Patient asymptomatic. MD informed. Labs ordered to assess electrolytes. Patient back up to bathroom, blow drying her hair and telemetry called with report of heart rate 120s-140. Patient once again asymptomatic and assisted back to bed for safety. Will continue to monitor.
[2017-04-20 10:45] LABS: BASOPHILS % (AUTO) 0.1 % (0-3); EOSINOPHILS % (AUTO) 0 % (0-5); MONOCYTES % (AUTO) 8.1 % (4-12); Mean Corpuscular Hemoglobin 27.2 pg (27.0-35.0); Mean Corpuscular Volume 81.7 fL (81-100); NEUTROPHILS % (AUTO) 79.2 % (40-74); Platelet Count 671 bil/L (150-400)
[2017-04-20 11:20] LABS: Magnesium 1.7 mg/dL (1.6-2.6); Phosphorus 2.3 mg/dL (2.5-4.9)
[2017-04-20] MEDS ORDERED: Potassium Chloride 20 mEq SR Tablet PO ONE (12:10)
[2017-04-20] MEDS ORDERED: Magnesium Sulf 2 Gm/50mL Water 2 GM in IV Premix 1 EACH IV ONE (12:10)
[2017-04-20] MEDS ORDERED: diphenhydrAMINE 25 mg Capsule PO ONE (15:10)
--- NOTE | 2017-04-20 15:24 | PROG NOTE ---
[address] [address] PROGRESS NOTE PATIENT: SANDRA BATES : 1940 MR#: [id number] ADMIT: 04/18/2017 JOB ID: [id number] DATE: 04/20/2017 SUBJECTIVE: The patient is still having some abdominal discomfort through the epigastrium. The diarrhea has slowed to some degree. She has had a little bit of solid food sandwich earlier today. Kept this down. She feels quite weak overall. I discussed the case with Dr. Nolan by telephone. Her pathology is still pending from the flexible sigmoidoscopy yesterday but visually and clinically this appears consistent with a chronic immunogenic inflammatory process brought on by the ipilimumab. The chest x-ray from yesterday was unremarkable. The patient has no history of tuberculosis. She does not have a history of hepatitis B. Her liver tests are normal. Her hepatitis B surface antigen is negative. Her total core was positive which is definitely interesting. The patient has no recollection of ever having hepatitis B either. A hepatitis B surface antibody is pending to confirm her immunity. OBJECTIVE: Vital signs are stable. The patient is in no distress. Conversational. Her was at the bedside. LABORATORIES: Hemoglobin 11.9, white count 8.6, platelets 671. Creatinine 0.47. Sodium 132, potassium 3.5, chloride 94, bicarbonate 20, BUN 4, calcium 7.8. Phosphorus 2.3. LFTs normal. Procalcitonin 0.07. Albumin 3.2. 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 She has been in essence refractory to corticosteroid therapy for weeks now. Anti tumor necrosis factor of therapy is definitely indicated in these scenarios. I have explained the rationale for this medication (Remicade). In order to rapidly get on top of her symptoms, I have recommended we move forward with infusion and would expect to see the QuantiFERON Gold results be finalized within the next 4-9 days. The hepatitis B surface antibody should be resulted within the next 24-72 hours. If there are any alarming results on either score, we will respond accordingly. I have filled out the Remicade infusion forms that we would typically use over in the infusion center for outpatients with appropriate premedications and dose escalation schedule for the nurses to utilize here in the hospital. I will continue to follow through the weekend.
[2017-04-20] MEDS ORDERED: SODIUM CHLORIDE 0.9% IV ONE ×2 (16:00)
[2017-04-20] MEDS ORDERED: FILTER IV ONE ×2 (16:00)
[2017-04-20] MEDS ORDERED: INFLIXIMAB IV ONE ×2 (16:00)
[2017-04-20] MEDS ORDERED: MICRON IV ONE ×2 (16:00)
--- NOTE | 2017-04-20 18:16 | NUR ---
Remicade First infusion started at 17:05 per protocol. 17:40, BP down to 104/60 from 150/67. Otherwise VSS and no s/s infusion reaction. Pt states she feels 'fine.' Stopped infusion and paged MD. BP remained stable while waiting for call back. Spoke with DR Flores at 17:56, informed of pt condition. 18:00 Infusion restarted per MD according to protocol.
[2017-04-21] VITALS (8 sets, daily range): BP systolic 130–177; BP diastolic 61–88; PULSE 73–79; RESP 16–18; O2SAT 96–99
[2017-04-21] MEDS: 0.9% Sodium Chloride 1,000 ML IV SCH ×2 (00:45→15:42)
--- NOTE | 2017-04-21 04:13 | NUR ---
Infusion end Pt tolerated Remicaide infusion without incident; vitals remained stable after. One episode of elevated B/P related to ambulation to BR. Independent in room with steady gait. Hourly rounding ongoing.
[2017-04-21 05:30] LABS: BASOPHILS % (AUTO) 0 % (0-3); EOSINOPHILS % (AUTO) 0 % (0-5); MONOCYTES % (AUTO) 6.4 % (4-12); Mean Corpuscular Hemoglobin 27.3 pg (27.0-35.0); Mean Corpuscular Volume 81.8 fL (81-100); Platelet Count 463 bil/L (150-400)
[2017-04-21] MEDS: Hydrocortisone 50 mg/mL 2 mL Inj IVPUSH SCH ×2 (05:33→17:10)
[2017-04-21 05:50] LABS: Magnesium 2.2 mg/dL (1.6-2.6); Phosphorus 1.5 mg/dL (2.5-4.9)
[2017-04-21] MEDS ORDERED: Potassium Phos (mEq) Inj 40 MEQ in Dextrose 5% 500 ML IV ONE (07:00)
[2017-04-21] MEDS: Pantoprazole 20 mg ER24 Tablet PO SCH ×2 (09:25→21:02)
--- NOTE | 2017-04-21 11:19 | PROG NOTE ---
[address] [address] PROGRESS NOTE PATIENT: SANDRA BATES : 1940 MR#: [id number] ADMIT: 04/18/2017 JOB ID: [id number] DATE: 04/21/2017 SUBJECTIVE: The patient tolerated the Remicade infusion yesterday. She has not had any significant change in her overall GI function. No significant diarrhea. Still with some epigastric discomfort. She had a scant amount of blood with the bowel movement this morning. She has not had any significant voluminous bloody output. She feels quite a bit more fatigued today, and her eyes are quite dry. She had a little bit of a difficult time focusing, but with the use of her eyedrops, this helped actually restore baseline. Otherwise, she has not had any significant complication to the Remicade. She did, however, appear to drop her blood count quite significantly overnight. This morning it was 9.0/27.0. Anemia in an adult on Remicade would actually be exceedingly rare. Nine percent of patients, however, experience fatigue. OBJECTIVE: Blood pressure is 148/71, pulse 76, breathing 18, temperature 36.5, 97% on room air. The patient was in no distress. Conversational. A little discouraged this morning based on the way she feels. LABORATORY DATA: Hemoglobin and hematocrit as above. White count is 8.4, platelets 463. Creatinine 0.31, sodium 134, potassium 3.5, chloride 100, bicarb 23, BUN 5, glucose 146, calcium 7.0, phosphorus 1.5. Liver tests normal. Albumin 2.4 g. ASSESSMENT AND RECOMMENDATIONS: This is a 76-year-old female with stage IV melanoma who has had a reaction to the ipilimumab. She has an immunogenic colitis that was refractory to steroids. She has been commenced on Remicade, and overnight a moderate drop in hemoglobin and hematocrit have been noted. This will need to be monitored closely along with all of the other parameters in her CBC. I would recommend her phos be replenished. Continue diet as tolerated. I would recommend she get her next dose of hydrocortisone today and then this be discontinued with transition to 40 mg prednisone daily with a plan to taper starting tomorrow morning. We still await her QuantiFERON Gold, results. The hepatitis B surface antibody is returned and considered reactive consistent with immunity. NOTE: This is a no charge physician visit. Today is the sabbath. Please do not submit a physician charge for this particular note.
--- NOTE | 2017-04-21 11:35 | PCM.PNMED ---
Subjective Date of Service Apr 21, 2017 Subjective Received a Remicade infusion yesterday. Diarrhea frequency is slightly better. Had 6 episodes overnight. Afebrile. Exam Vital Signs Vital Sign - Last Date Time Temp Pulse Resp B/P Pulse Ox O2 Delivery O2 Flow Rate FiO2 04/21/17 08:44 36.5 76 18 148/71 97 Room Air Intake and Output 04/20/17 04/20/17 04/21/17 Cumulative From/Thru 15:00 23:00 07:00 04/18/17 10:59 - 04/21/17 05:35 Intake Total 2395 ml 1213 ml 6937 ml Output Total 200 ml 950 ml 2650 ml Balance 2195 ml 263 ml 4287 ml Intake Oral 436 ml 400 ml 2676 ml IV Total 1959 ml 813 ml 4261 ml Output Urine Total 200 ml 950 ml 1950 ml Urine/Stool Mix 700 ml # Voids 3 # Bowel Movements 3 2 18 Exam Gen. patient is lying comfortably in hospital bed HEENT: Head is normocephalic atraumatic, Lungs clear to auscultation bilaterally Heart regular rate and rhythm without murmurs gallops or rubs Abdomen soft nontender without hepatosplenomegaly Extremities pulses are present dorsalis pedis posterior tibialis and radial. Skin is warm and dry there are no rashes, Psych alert and oriented to person place and time Neuro cranial nerves II through XII are grossly intact Lymph: There is no lymphadenopathy appreciated in the cervical supra infraclavicular regions : no cervantes IVs and Medications Medications Reviewed: Medications were reviewed in detail Lab and Diagnostics Result Diagram: 04/21/1725 04/21/17 0525 Additional Diagnostics DATE OF PROCEDURE: 04/18/2017 PRIMARY PROVIDER: Kentrell Gan MD. PROCEDURE: Colonoscopy with biopsies. INDICATIONS: A 76-year-old female with severe diarrhea following the initiation of ipilimumab. She has only been partially responsive to steroids. EQUIPMENT: [facility]-H180MN. SEDATION: 1. Versed 5 mg. 2. Fentanyl 100 mcg. COMPLICATIONS: None identified. BOWEL PREPARATION: Excellent with a single Fleet's. PROCEDURE INFORMATION: After the risks and benefits were explained, written and verbal informed consent was obtained. The patient was brought into the endoscopy suite and placed into the left lateral decubitus position. Sedation was achieved as above. A digital rectal examination accomplished. Mild internal hemorrhoids noted. The scope was then introduced into the rectum and advanced with great difficulty to about 35 cm from the anal verge in the sigmoid. The patient had a very tortuous bowel. It was inflamed and she demonstrated suboptimal tolerance with intermittent SVT into the high 140s, low 150s. She would respond with Valsalva. We did not make an effort to push beyond this depth in that we already had clear-cut evidence of proctocolitis. Biopsies were acquired. The scope was withdrawn. Patient tolerated the procedure reasonably well. The bowel was decompressed prior to removing the scope. FINDINGS: Mild proctitis characterized by exudate, erythema, loss of vascular pattern. There were punctate ulcerations. This became a little more intense just beyond the rectosigmoid through the sigmoid colon. We took a couple of biopsies from the sigmoid for histopathologic confirmation. As mentioned above, we did not attempt to navigate beyond 35 cm secondary to patient's heart rate intermittently spiking at 150 beats per minute.. ENDOSCOPIC DIAGNOSIS: Proctocolitis. RECOMMENDATIONS: 1. Await histopathology. 2. Continue IV hydrocortisone. 3. Hepatitis B serology and QuantiFERON Gold results are still pending. There was hyperinflation on the chest x-ray suggesting COPD but otherwise no acute cardiopulmonary abnormalities. Ideally, I would like to see these results returned prior to first dose of Remicade. Perhaps we could see how she responds clinically with the IV steroids over the next 24 hours and if she is not substantially better get the first dose on board while we await the results of some of the testing. Dane Flores MD 04/19/17 5336 Assessment & Plan Diane is a pleasant 76 yrs old lady with past medical history of breast cancer, melanoma, PMR, IBS came to emergency room due to worsening of diarrhea of 5 days. # Diarrhea, acute on chronic,poa -Due to Ipilimumab -stool pcr negative, initial LA 2.5 -NS at 75 ml/h -Initially started on Hydrocortisone 100mg iv q8h . Continue to have diarrhea. Remicade given on 04/20 per GI and tolerated well. will discontinue hydrocortisone today and transition to prednisone 40 mg daily. -quantiferon gold TB pending.hep sAg negative HBsAb positive,HBCAb positive. Immunity possibly from recent infection. -s/p sigmoidoscopy 04/19 which shows Proctocolitis. -loperamide prn -GI Dr Flores consulted by ED, planning to do flex sigmoidoscopy today #Episodes of SVTs on 04/19 -Probably due to electrolyte disturbance -Hypokalemia repleted -12 lead ekg unremarkable # Hyponatremia, improving -Due to hypovolemia -NS at 75ml/h # Bandemia -Bandemia of 10% of noted. Afebrile. No leukocytosis. Pro calcitonin negative. Initial stool PCR negative. No evidence of infection as well. -CBC daily # Recently diagnosed melanoma -1st cycle of immunotherapy given a month ago. Treatment remains on hold due to side effect # PMR -Pain much better now due to steroids per patient #History of breast cancer -letrozole discontinued a month ago for unclear reason -Dr Nolan following #ppx -Lovenox,ppi given steroid Patient admitted under inpatient status with expected length of stay > 2 midnights for severity of present symptoms, complexities of treatment plan and risk for adverse events DNR/DNI ,patient interested to fill in POLST,will fill in POLST Disposition: Possible discharge on prednisone taper in 2-3 days VTE Mechanical Devices: Intermittant Pneumatic CD Resuscitation Status: DNR/DNI:Do Not Resuscitate/Intubate Erik Vickers MD Apr 21, 2017 11:35
[2017-04-21] MEDS: LORazepam 0.5 mg Tablet PO PRN (15:42)
--- NOTE | 2017-04-21 17:21 | NUR ---
DIARRHEA/FATIGUE/K SITA Pt had 6 BMs this shift. Last one had a 50 cent size octaviano red blood clot. Dr. Vickers paged and made aware. No new orders at this time. Pt received her last dose of IV solu cortef at 1700 (per her request; aware of this) and will start prednisone po in the AM. Was given 0.5 po ativan for nausea relief as zofran and reglan do not work for her. Pt states she is feeling very fatigued today. Watching electrolytes and h/h which has trended down to 08/08. K sita started at 63ml/hr with concurrent fluids however at this rate it was burning therefore it was decreased to 50ml/hr with concurrent normal saline. Pt states that this is tolerable. states that she can be DCd from tele 1 hour after k sita is finished. Of note pt was not interested in taking a shower today as she had originally planned. States she is too fatigued. She did brush her teeth and clean her face in bed. She was also not interested in getting her bedding changed today as she states that new bedding would be cold and her current bedding is warm. Offered her more warm blankets but she declined. Caleb pegueros
--- NOTE | 2017-04-21 17:56 | NUR ---
Blood stool Pt had 2 more bloody stools with no stool present at ~1730. Pt c/o increasing abd pain. Dr. Rancho zhong paged orders for STAT CBC and increase fluids to 100mls/hr. Orders to watch for bloody stool and if it blood increases then noc hospitalist and Dr. Flores needs to be notified. Care conts.
--- NOTE | 2017-04-21 18:11 | NUR ---
TELE Pt has been SR/ST 70-105 throughout this shift.
[2017-04-21 18:26] LABS: Mean Corpuscular Hemoglobin 27.3 pg (27.0-35.0); Mean Corpuscular Volume 82.5 fL (81-100)
[2017-04-22] MEDS: 0.9% Sodium Chloride 1,000 ML IV SCH ×4 (00:01→21:42)
--- NOTE | 2017-04-22 00:54 | NUR ---
GI; 3 loose brown stools at beginning of shift, one has very small amount of blood in it.
[2017-04-22 04:06] LABS: BASOPHILS % (AUTO) 0 % (0-3); EOSINOPHILS % (AUTO) 0.1 % (0-5); Mean Corpuscular Hemoglobin 27.7 pg (27.0-35.0); Mean Corpuscular Volume 81.8 fL (81-100); NEUTROPHILS % (AUTO) 70.1 % (40-74); Platelet Count 484 bil/L (150-400)
[2017-04-22 04:35] LABS: Magnesium 1.9 mg/dL (1.6-2.6); Phosphorus 1.6 mg/dL (2.5-4.9)
[2017-04-22 05:00] VITALS: BP 130/67; PULSE 80; RESP 18; O2SAT 97
--- NOTE | 2017-04-22 06:04 | NUR ---
GI; two more stools during the night without blood noted.
[2017-04-22] MEDS ORDERED: Potassium Phos (mEq) Inj 40 MEQ in Dextrose 5% 500 ML IV ONE (06:45)
[2017-04-22] MEDS: predniSONE 20 mg Tablet PO SCH (08:31)
[2017-04-22] MEDS: Pantoprazole 20 mg ER24 Tablet PO SCH ×2 (08:31→20:55)
--- NOTE | 2017-04-22 10:40 | NUR ---
Activity Patient independent, C/O no pain with movement.
--- NOTE | 2017-04-22 12:46 | PCM.PNMED ---
Subjective Date of Service Apr 22, 2017 Subjective Continues to have frequent diarrhea. Had 8-10 episodes during the day yesterday. Had bloody diarrhea episodes overnight. Hemoglobin drop to 9.6 from 11.4 noted Exam Vital Signs Vital Sign - Last Date Time Temp Pulse Resp B/P Pulse Ox O2 Delivery O2 Flow Rate FiO2 04/22/17 05:00 37.0 80 18 130/67 97 Room Air Intake and Output 04/21/17 04/21/17 04/22/17 Cumulative From/Thru 15:00 23:00 07:00 04/18/17 10:59 - 04/22/17 06:01 Intake Total 1914 ml 1506 ml 27321 ml Output Total 1240 ml 3890 ml Balance 1914 ml 266 ml 6467 ml Intake Oral 700 ml 350 ml 3726 ml IV Total 1214 ml 1156 ml 6631 ml Output Urine Total 1240 ml 3190 ml Urine/Stool Mix 700 ml # Voids 5 8 # Bowel Movements 5 4 27 Exam Gen. patient is lying comfortably in hospital bed HEENT: Head is normocephalic atraumatic, Lungs clear to auscultation bilaterally Heart regular rate and rhythm without murmurs gallops or rubs Abdomen soft nontender without hepatosplenomegaly Extremities pulses are present dorsalis pedis posterior tibialis and radial. Skin is warm and dry there are no rashes, Psych alert and oriented to person place and time Neuro cranial nerves II through XII are grossly intact Lymph: There is no lymphadenopathy appreciated in the cervical supra infraclavicular regions : no cervantes IVs and Medications Medications Reviewed: Medications were reviewed in detail Lab and Diagnostics Result Diagram: 04/22/17 0350 04/22/17 0350 Additional Diagnostics DATE OF PROCEDURE: 04/18/2017 PRIMARY PROVIDER: Kentrell Gan MD. PROCEDURE: Colonoscopy with biopsies. INDICATIONS: A 76-year-old female with severe diarrhea following the initiation of ipilimumab. She has only been partially responsive to steroids. EQUIPMENT: [facility]-H180AZ. SEDATION: 1. Versed 5 mg. 2. Fentanyl 100 mcg. COMPLICATIONS: None identified. BOWEL PREPARATION: Excellent with a single Fleet's. PROCEDURE INFORMATION: After the risks and benefits were explained, written and verbal informed consent was obtained. The patient was brought into the endoscopy suite and placed into the left lateral decubitus position. Sedation was achieved as above. A digital rectal examination accomplished. Mild internal hemorrhoids noted. The scope was then introduced into the rectum and advanced with great difficulty to about 35 cm from the anal verge in the sigmoid. The patient had a very tortuous bowel. It was inflamed and she demonstrated suboptimal tolerance with intermittent SVT into the high 140s, low 150s. She would respond with Valsalva. We did not make an effort to push beyond this depth in that we already had clear-cut evidence of proctocolitis. Biopsies were acquired. The scope was withdrawn. Patient tolerated the procedure reasonably well. The bowel was decompressed prior to removing the scope. FINDINGS: Mild proctitis characterized by exudate, erythema, loss of vascular pattern. There were punctate ulcerations. This became a little more intense just beyond the rectosigmoid through the sigmoid colon. We took a couple of biopsies from the sigmoid for histopathologic confirmation. As mentioned above, we did not attempt to navigate beyond 35 cm secondary to patient's heart rate intermittently spiking at 150 beats per minute.. ENDOSCOPIC DIAGNOSIS: Proctocolitis. RECOMMENDATIONS: 1. Await histopathology. 2. Continue IV hydrocortisone. 3. Hepatitis B serology and QuantiFERON Gold results are still pending. There was hyperinflation on the chest x-ray suggesting COPD but otherwise no acute cardiopulmonary abnormalities. Ideally, I would like to see these results returned prior to first dose of Remicade. Perhaps we could see how she responds clinically with the IV steroids over the next 24 hours and if she is not substantially better get the first dose on board while we await the results of some of the testing. Dane Flores MD 04/19/17 [id number] Assessment & Plan Diane is a pleasant 76 yrs old lady with past medical history of breast cancer, melanoma, PMR, IBS came to emergency room due to worsening of diarrhea of 5 days. # Diarrhea, acute on chronic,poa -Due to Ipilimumab.Patient had recent similar hospitalization and failed prednisone treatment. -stool pcr negative, initial LA 2.5 -NS at 100ml/h, restarted yesterday 04/21 due to frequent diarrhea -Initially started on Hydrocortisone 100mg iv q8h . Continued to have diarrhea. Remicade given on 04/20 per GI and tolerated well. discontinued hydrocortisone 04/21 and transition to prednisone 40 mg daily. -quantiferon gold TB pending.hep sAg negative HBsAb positive,HBCAb positive. Immunity possibly from recent infection. -s/p sigmoidoscopy 04/19 which shows Proctocolitis. -loperamide prn -GI Dr Flores consulted, #Episodes of SVTs on 04/19 -Probably due to electrolyte disturbance -Hypokalemia repleted -12 lead ekg unremarkable #Anemia -Due to bloody diarrhea -Hemoglobin drop to 9.6 from 11.4 noted -Continue to monitor # Hyponatremia, improving -Due to hypovolemia -NS at 75ml/h # Bandemia , resolved -Bandemia of 10% of noted. Afebrile. No leukocytosis. Pro calcitonin negative. Initial stool PCR negative. No evidence of infection as well. -CBC daily # Recently diagnosed melanoma -1st cycle of immunotherapy given a month ago. Treatment remains on hold due to side effect # PMR -Pain much better now due to steroids per patient #History of breast cancer -letrozole discontinued a month ago for unclear reason -Dr Nolan following #ppx -Lovenox,ppi given steroid Patient admitted under inpatient status with expected length of stay > 2 midnights for severity of present symptoms, complexities of treatment plan and risk for adverse events DNR/DNI ,patient interested to fill in POLST,will fill in POLST Disposition: Possible discharge on prednisone taper in 2-3 days VTE Mechanical Devices: Intermittant Pneumatic CD Resuscitation Status: DNR/DNI:Do Not Resuscitate/Intubate Erik Vickers MD Apr 22, 2017 12:45
[2017-04-22 12:53] VITALS: BP 121/61; PULSE 89; RESP 16; O2SAT 99
--- NOTE | 2017-04-22 13:22 | NUR ---
ADEEL signed. Matilda Chavez DIRECTOR CLINICAL OPERATIONS
--- NOTE | 2017-04-22 13:38 | NUR ---
Social Work: Continued D/C Planning D: EMR reviewed. Pt is on day 4 of hospitalization for adverse medication reaction, diarrhea per H&P. Pt is not medically stable for discharge, anticipate 2-3 more days. Pt continues to have bloody diarrhea. Hospitalist is monitoring h&h. Pt will require prednisone taper prior to discharge. Pt is independent with ADLs at baseline. Pt's spouse will provide transport home via POV when pt is medically stable. SW does not anticipate any discharge needs at this time but will continue to follow if needs arise. A: Pt who is independent at baseline P: Pt's spouse will provide transport home via POV when pt is medically stable. SW does not anticipate any discharge needs at this time but will continue to follow if needs arise. Matilda Chavez MSW
[2017-04-22] MEDS: LORazepam 0.5 mg Tablet PO PRN (15:49)
--- NOTE | 2017-04-22 16:13 | PROG NOTE ---
[address] [address] PROGRESS NOTE PATIENT: SANDRA BATES : 1940 MR#: [id number] ADMIT: 04/18/2017 JOB ID: [id number] DATE: 04/22/2017 SUBJECTIVE: The patient is still having some loose stool. She transitioned from IV to oral steroid yesterday through this morning. No more blood per rectum. She is having some right lower quadrant discomfort and some bloating. She reports that the Ativan actually helps with this. OBJECTIVE: Otherwise vitals stable. Patient in no distress. Conversational. LABS: Phos is still low. H and H is stable with respect to blood work from yesterday; 9.6/28.3 today. ASSESSMENT AND RECOMMENDATIONS: A 76-year-old female with stage IV melanoma and an unfortunate reaction to the ipilimumab. She has an iatrogenic colitis. She is now approximately two days out from her 1st Remicade infusion. Will see how she does with the transition to oral steroids. I have encouraged the nurse to give her an extra dose of Ativan today and have started some Culturelle probiotic to see if this alleviates some of the bloating.
[2017-04-22] MEDS: Lactobacillus Rhamnosus 10 Bil Unit Capsule PO SCH (18:02)
[2017-04-22 20:18] VITALS: BP 121/61; PULSE 80; RESP 16; O2SAT 98
--- NOTE | 2017-04-22 22:34 | NUR ---
Peripheral IV Patients peripheral IV in the left wrist was removed and a new one started on the right forearm. The old IV was no longer patent and was leaking.
--- NOTE | 2017-04-23 05:02 | NUR ---
Pain Patient has had some abdominal pain this shift 01/19. Tylenol was given and patient stated that it helped. Patient states she has not had any bloody stools this evening. A&OX3. Vitals stable. Care continues.
[2017-04-23 06:18] VITALS: BP 115/64; PULSE 83; RESP 16; O2SAT 98
--- NOTE | 2017-04-23 06:27 | NUR ---
Fluids It appears as though the IV pump was not cleared on the previous shift. The total was charted on last nights shift.
[2017-04-23 08:11] LABS: BASOPHILS % (AUTO) 0.1 % (0-3); EOSINOPHILS % (AUTO) 0.1 % (0-5); MONOCYTES % (AUTO) 2.7 % (4-12); Mean Corpuscular Hemoglobin 27.9 pg (27.0-35.0); Mean Corpuscular Volume 82.8 fL (81-100); NEUTROPHILS % (AUTO) 84.5 % (40-74); Platelet Count 473 bil/L (150-400)
[2017-04-23] MEDS: Lactobacillus Rhamnosus 10 Bil Unit Capsule PO SCH ×2 (08:59→17:14)
[2017-04-23] MEDS: Pantoprazole 20 mg ER24 Tablet PO SCH ×2 (08:59→21:34)
[2017-04-23] MEDS: predniSONE 20 mg Tablet PO SCH (08:59)
[2017-04-23] MEDS: 0.9% Sodium Chloride 1,000 ML IV SCH (09:00)
--- NOTE | 2017-04-23 10:23 | PCM.PNMED ---
Subjective Date of Service Apr 23, 2017 Subjective pt took imodium last night, which successfully stopped diarrhea then pt developed mild abdominal pain, 3/, denied n/v has good appetite, wiling to continue to eat took second dose of prednisone this AM Exam Vital Signs Vital Sign - Last Date Time Temp Pulse Resp B/P Pulse Ox O2 Delivery O2 Flow Rate FiO2 04/23/17 06:18 37.1 83 16 115/64 98 Room Air Intake and Output 04/22/17 04/22/17 04/23/17 Cumulative From/Thru 15:00 23:00 07:00 04/18/17 10:59 - 04/23/17 06:26 Intake Total 1267 ml 1300 ml 2340 ml 57552 ml Output Total 1001 ml 1300 ml 1750 ml 7941 ml Balance 266 ml 0 ml 590 ml 7323 ml Intake Oral 1300 ml 650 ml 5676 ml IV Total 1267 ml 1690 ml 9588 ml Output Urine Total 1000 ml 1300 ml 1750 ml 7240 ml Urine/Stool Mix 1 ml 701 ml # Voids 8 # Bowel Movements 7 2 36 Exam cachectic elderly female, NAD, comfortably laying down on the bed no JVD, MMM, no LAD RRR, nl s1, s2 no mrg CTAB, no w,c S,mildly distended, mildly tendern on LLQ active BS+ warm, no edema, pulses 2/2 IVs and Medications Medications Reviewed: Medications were reviewed in detail Lab and Diagnostics Result Diagram: 04/23/17 0800 04/22/17 0350 Additional Diagnostics DATE OF PROCEDURE: 04/18/2017 PRIMARY PROVIDER: Kenterll Gna MD. PROCEDURE: Colonoscopy with biopsies. INDICATIONS: A 76-year-old female with severe diarrhea following the initiation of ipilimumab. She has only been partially responsive to steroids. EQUIPMENT: [facility]-H180AL. SEDATION: 1. Versed 5 mg. 2. Fentanyl 100 mcg. COMPLICATIONS: None identified. BOWEL PREPARATION: Excellent with a single Fleet's. PROCEDURE INFORMATION: After the risks and benefits were explained, written and verbal informed consent was obtained. The patient was brought into the endoscopy suite and placed into the left lateral decubitus position. Sedation was achieved as above. A digital rectal examination accomplished. Mild internal hemorrhoids noted. The scope was then introduced into the rectum and advanced with great difficulty to about 35 cm from the anal verge in the sigmoid. The patient had a very tortuous bowel. It was inflamed and she demonstrated suboptimal tolerance with intermittent SVT into the high 140s, low 150s. She would respond with Valsalva. We did not make an effort to push beyond this depth in that we already had clear-cut evidence of proctocolitis. Biopsies were acquired. The scope was withdrawn. Patient tolerated the procedure reasonably well. The bowel was decompressed prior to removing the scope. FINDINGS: Mild proctitis characterized by exudate, erythema, loss of vascular pattern. There were punctate ulcerations. This became a little more intense just beyond the rectosigmoid through the sigmoid colon. We took a couple of biopsies from the sigmoid for histopathologic confirmation. As mentioned above, we did not attempt to navigate beyond 35 cm secondary to patient's heart rate intermittently spiking at 150 beats per minute.. ENDOSCOPIC DIAGNOSIS: Proctocolitis. RECOMMENDATIONS: 1. Await histopathology. 2. Continue IV hydrocortisone. 3. Hepatitis B serology and QuantiFERON Gold results are still pending. There was hyperinflation on the chest x-ray suggesting COPD but otherwise no acute cardiopulmonary abnormalities. Ideally, I would like to see these results returned prior to first dose of Remicade. Perhaps we could see how she responds clinically with the IV steroids over the next 24 hours and if she is not substantially better get the first dose on board while we await the results of some of the testing. Dane Flores MD 04/19/17 1515 Assessment & Plan Diane is a pleasant 76 yrs old lady with past medical history of breast cancer, melanoma, PMR, IBS came to emergency room due to worsening of diarrhea of 5 days. # Diarrhea, acute on chronic,poa, Due to Ipilimumab.Patient had recent similar hospitalization and failed prednisone treatment. stool pcr negative, initial LA 2.5., -s/p sigmoidoscopy 04/19 which shows Proctocolitis. -pt is clinically mildly improving, diarrhea seems to resolve -s/p NS at 100ml/h, restarted 04/21 due to frequent diarrhea, given good oral intake, no more diarrhea, will stop IVF today again, monitor for now. -Initially started on Hydrocortisone 100mg iv q8h . Continued to have diarrhea. Remicade given on 04/20 per GI and tolerated well. discontinued hydrocortisone 04/21 and transition to prednisone 40 mg daily #2 today -quantiferon gold TB pending.hep sAg negative HBsAb positive,HBCAb positive. Immunity possibly from recent infection. -loperamide prn -GI Dr Flores consulted, appreciate follow up #Episodes of SVTs on 04/19 -Probably due to electrolyte disturbance -Hypokalemia repleted -12 lead ekg unremarkable #Anemia -Due to bloody diarrhea -Hemoglobin drop to 9.6 from 11.4 noted -Continue to monitor # Hyponatremia, improving -Due to hypovolemia -NS at 75ml/h # Bandemia , resolved -Bandemia of 10% of noted. Afebrile. No leukocytosis. Pro calcitonin negative. Initial stool PCR negative. No evidence of infection as well. -CBC daily # Recently diagnosed melanoma -1st cycle of immunotherapy given a month ago. Treatment remains on hold due to side effect # PMR -Pain much better now due to steroids per patient #History of breast cancer -letrozole discontinued a month ago for unclear reason -Dr Nolan following #ppx -Lovenox,ppi given steroid Patient admitted under inpatient status with expected length of stay > 2 midnights for severity of present symptoms, complexities of treatment plan and risk for adverse events DNR/DNI ,patient interested to fill in POLST,will fill in POLST Disposition: likely 1-2days, Possible discharge on prednisone taper in 2-3 days VTE Mechanical Devices: Intermittant Pneumatic CD Resuscitation Status: DNR/DNI:Do Not Resuscitate/Intubate Time spent 35min [place] He MD Apr 23, 2017 09:33
--- NOTE | 2017-04-23 10:59 | NUR ---
GI Pt report left side abd pain 01/19. Declines pain medication. Denies nausea. Tolerates small amounts of soft diet. States she took Imodium last night and has not had any bowel movements since then. Tones hyperactive. Abd is round, perhaps slightly distended, and soft. Pt continues to ambulate frequently in room.
--- NOTE | 2017-04-23 11:32 | NUR ---
NUTRITION FOLLOW UP: ASSESS: 76YO F admit with acute on chronic diarrhea now s/p sigmoidoscopy showing iatrogenic colitis, reaction to ipilimumab from Stg IV breast CA treatment. Now started on Remicade, appears diarrhea improved, pt with good appetite. PMHX: Breast CA s/p lumpectomy,radiation thx, recent dx Melanoma in February, DIET: Soft. PO 100% Pt reports intolerances (causes abdominal pain) with lactose,gluten,eggs,blueberries,coffee,sesame seeds,cranberry. LABS: Alb 2.5, Ca 7.2, Phos 1.6, Glu 139 MEDS: Reviewed. Prednisone GI: 2 BM 04/23 WEIGHT: 46.9kg BMI: 19.1; Wt in March-48kg, reported UBW of 50k.1kg wt loss x 1mos EST.NEEDS: WT GAIN (30-35kcal/kg;1.2-1.5g/kg IBW) Kcal: 7387-4991 Pro: 60-70g NUTRITION DIAGNOSIS: (1) Altered GI tract function related to lpilimumab medication per MD notes as evidenced by persistent diarrhea---IMPROVING. INTERVENTION: (1)Diet education/preferences obtained 04/19: Spoke with pt at length re multiple food intolerances. Reviewed high kcal/protein foods within pt dietary restrictions. (2) Continue current diet per pt provided preferences. MONITOR/EVALUATE: PO intake, lab values, GI status. F/U per moderate risk.
[2017-04-23 13:38] VITALS: BP 125/61; PULSE 92; RESP 18; O2SAT 95
--- NOTE | 2017-04-23 14:17 | PATH ---
SURGICAL PATHOLOGY Attending Physician:Kimmy Hugo CASE STATUS: Signed Out PATIENT NAME: SANDRA BATES PID: [id number] : 1940 DATE COLLECTED:04/18/2017 00:00 SPECIMEN: Colon, Biopsy CLINICAL HISTORY: 1. SIGMOID BXS FINAL DIAGNOSIS: 1.SIGMOID COLON BIOPSIES: COLON MUCOSA WITH DIFFUSE CHRONIC ACTIVE INFLAMMATION INCLUDING CRYPT ABSCESSES (SEE COMMENT). Negative for dysplasia and malignancy. ICD10 C52.9 NOTE: The inflammatory changes present within this biopsy are not specific; however, the possibility of inflammation associated with diverticulitis should be considered. GROSS DESCRIPTION: The specimen is received in one formalin filled container labeled with the patient's name, sublabeled "sigmoid" and consists of 2 portions of tissue which aggregate to 0.3 x 0.3 x 0.2 CM. The specimen is entirely submitted in one cassette. 04/20/2017 DAC MICRO DESCRIPTION: See diagnosis. ICD-9 CODES: CPT CODES: 1: 20074 Electronically Signed Out Dane Catalan MD [facility] Pathology [facility] [address], [place] [address] Technical component performed at [facility], [facility] [address], [place], [address]
--- NOTE | 2017-04-23 16:33 | NUR ---
Social Work: Continued Discharge Planning D: EMR reviewed. Pt is on day 5 of hospitalization. ROGER met with pt to discuss pt concerns about discharge. Pt's spouse is 93 y/o and pt is concerned that she will not be able to care for herself at home. Pt has been up ambulating in halls independently. Pt requested SNF placement. ROGER explained that SNF placement would only be possible if MD believed it was medically necessary. ROGER contacted MD to discuss pt's concerns. MD stated that pt is not a candidate for SNF placement at this time but would be a candidate for HH RN 3x/week and a private-pay in-home caregiver. MD placed order for HH RN 3x/week. ROGER provided pt with HH choicelist and senior resource guide for private-pay in-home caregivers. ROGER explained that MD does not believe a SNF is medically necessary at this time. Pt is open to in-home caregiving and states she has the funds to pay privately. Pt is also open to HH RN 3x/week, as per MD recommendations. Pt stated her diarhhea was returning and requested SW to follow-up with her 04/24 after MD has reassessed her changing medical conditions. SW confirmed to follow-up with pt after AM rounds and help narrow down discharge plan based on medical necessity. Pt is agreeable to plan moving forward. A: Pt for whom HH RN 3x/week has been deemed medically necessary. P: ROGER provided HH choicelist. SW to follow-up with pt regarding HH. Pt would also like help choosing an in-home caregiver. ROGER provided senior resource guide and bookmarked the pages where in-home caregivers are listed. RASHAD Aponte
[2017-04-23] MEDS: LORazepam 0.5 mg Tablet PO PRN (17:13)
[2017-04-23 20:50] VITALS: BP 155/75; PULSE 118; RESP 16; O2SAT 100
--- NOTE | 2017-04-23 21:32 | PROG NOTE ---
[address] [address] PROGRESS NOTE PATIENT: SANDRA BATES : 1940 MR#: [id number] ADMIT: 04/18/2017 JOB ID: [id number] DATE: 04/23/2017 SUBJECTIVE: The patient is being seen today per hospital rounds. She carries the diagnosis of ipilimumab-induced colitis. Events over the past week are noted. The patient recently completed her second-line therapy for her colitis with Remicade on April 20, 2017. She is currently off IV steroids and on p.o. prednisone at a dose of 40 mg b.i.d. The patient did notice a clinical benefit after her Remicade yesterday, however, she had a series of out watery stools. She had taken some Imodium and today has not had a bowel movement but is experiencing increasing cramping and slight bloating. The remainder of her review of systems is otherwise negative for any fevers or chills. The blood in her stool has since resolved. PAST MEDICAL HISTORY: Significant for: 1. Immune-related adverse effect: Ipilimumab-induced colitis. Grade 3 diarrhea. The patient initially responding to IV prednisone but, unfortunately, had recurrence of her diarrhea and therefore, started Remicade 5 mg/kg given every two weeks. Cycle one was on April 20, 2017. She is noticing a clinical response. 2. Malignant melanoma, stage III, status one dose of ipilimumab in the adjuvant setting administered on March 15, 2017. 3. Polymyalgia rheumatica. 4. Left-sided multifocal DCIS. 5. Irritable bowel syndrome. 6. Osteopenia. PHYSICAL EXAMINATION: Vital signs showing a weight of 46.9 kg, blood pressure was 126/61, temperature 36, pulse is 92, respiratory is 18 and she is saturating at 95% on room air. She is A and O x3. In good spirits overall and looks a little more alert and better hydrated. In fact, she states that her appetite has returned and she is able to the taste foods. Abdomen was slightly distended and hypertympanic. Good bowel sounds were noted. Lower extremities without significant swelling or edema. LABORATORY DATA: From April 23, 2017 reporting a white cell count of 9.4, hemoglobin 9.4, platelet count of 473. Sodium 135, potassium 3.5, serum creatinine 0.32, AST 7, ALT 9, alk phos 52. ASSESSMENT AND PLAN: The patient is a very pleasant, 76-year-old female, with ipilimumab-induced colitis. The patient again showing treatment response to Remicade at cycle one administered on April 20, 2017. Continue with her prednisone 40 mg p.o. b.i.d. with a planned discharge from hospital on April 24, 2017. The patient has been scheduled for followup in the Oncology Clinic early next week. No further recommendations for the patient at this time regarding her colitis. Dr. Flores's assistance in this patient's care was greatly appreciated.
--- NOTE | 2017-04-23 21:41 | DRSVH ---
PROCEDURE: CT ABDOMEN AND PELVIS WITH CONTRAST ([id number]) INDICATIONS: RLQ PAIN TECHNIQUE: After the administration of oral and intravenous contrast, 5 mm thick sections acquired from the diap hragms to the symphysis. 5 mm thick coronal and sagittal reformats were performed. For radiation do se reduction, the following was used: automated exposure control, adjustment of mA and/or kV accordi ng to patient size. COMPARISON: [facility], CT, CT NECK CHEST ABD PELVIS W CON, 03/15/2017, 11:04. FINDINGS: Image quality: Excellent. ABDOMEN: Lung bases: There partially visualized low density pleural effusions. Compressive atelectasis is pres ent in the bilateral lung bases. Solid organs: Liver and spleen are normal in size and enhancement. Gallbladder is unremarkable. Ravi iary system is non-dilated. There is a small amount of pneumobilia which is new when compared with t he study dated 03/15/17. Pancreas enhances normally. No adrenal nodules. Kidneys are normal in size and enhancement, without hydronephrosis. Peritoneum and bowel: The stomach and small bowel demonstrate normal caliber and wall thickness. Ther e is circumferential mucosal thickening and hyperemia throughout the colon. There is a small moderate amount of pneumoperitoneum within the upper abdomen. Nodes and vessels: No retroperitoneal or mesenteric adenopathy. Aorta and inferior vena cava are no rmal in caliber. There are scattered atheromatous calcifications throughout the aorta and iliac becky dat bilaterally. Miscellaneous: No ventral hernias. PELVIS: Genitourinary: Bladder wall thickness is normal. Miscellaneous: No inguinal hernias or adenopathy. There is diffuse anasarca throughout the soft tis sues. Bones: No suspicious bony lesions. No vertebral body compression fractures. IMPRESSION: 1. Small bilateral pleural effusions. 2. Pneumobilia suggesting recent biliary intervention. Please correlate clinically. 3. Pneumoperitoneum suggesting bowel perforation. Surgical consult recommended. 4. Circumferential wall thickening of the colon suspicious for acute colitis. This finding is new whe n compared with prior CT dated 03/15/17. These findings were discussed with Dr. last Souza at 9:37 PM on 04/23/17. Dictated by: Teresa Snyder M.D. on 04/23/2017 at 21:17 Approved by: Teresa Snyder M.D. on 04/23/2017 at 21:39
[2017-04-23] MEDS ORDERED: Piper-Tazo 4.5 Gm/100 mL D5W Minibag Plus - Q8H over 4 hrs IV ONE ×2 (22:15)
--- NOTE | 2017-04-23 22:16 | PCM.PNMED ---
Subjective Date of Service Apr 23, 2017 Subjective Received a call from Dr Snyder that a CT scan done on the patient later tonight showed a pneumoperitoneum. Patient was seen and examined. Complaining of right upper quadrant pain, 3/10 intensity without any radiation. Denies any nausea or vomiting Called Dr Bartlett from GI and also exhibitions and collections manager surgeon Dr Pena Assessment Perforated bowel likely due to recent colonoscopy with biopsy done on the 04/20 Plan NPO for now Blood cultures, initiate Zosyn IV as recommended by GI will follow recommendations from Dr Pena after his evaluation Ben Gomez MD Apr 23, 2017 22:16
--- NOTE | 2017-04-23 22:22 | PROG NOTE ---
[address] [address] PROGRESS NOTE PATIENT: SANDRA BATES : 1940 MR#: [id number] ADMIT: 04/18/2017 JOB ID: [id number] DATE: 04/23/2017 SUBJECTIVE: She used an Imodium last night and did not have any bowel movements overnight. She had a few loose stools today which were distressing for her. She is having continued right lower, right middle quadrant discomfort. OBJECTIVE: Vital signs are stable. Patient is in no distress. She is having tenderness to palpation in the right lower quadrant. LABORATORIES: White count 9.4, hemoglobin 9.4, platelets 473. Phosphorus 1.6, calcium 7.2, albumin 2.5. ASSESSMENT AND RECOMMENDATIONS: A 76-year-old female with immunogenic colitis brought on by the ipilimumab. She is now three days out from the start of Remicade and continues on oral prednisone. H and H is stable. The ongoing right-sided abdominal discomfort is concerning in that it is not seeming to improve with therapy. CT scan is ordered for this evening.
[2017-04-24] MEDS: Acetaminophen IV 1,000 MG in IV Premix 1 EACH IV SCH ×4 (00:31→18:33)
[2017-04-24 00:35] VITALS: BP 130/70; PULSE 102; RESP 16; O2SAT 95
--- NOTE | 2017-04-24 02:30 | CONS ---
[address] [address] CONSULTATION REPORT PATIENT: SANDRA BATES : 1940 MR#: [id number] ADMIT: 04/18/2017 JOB ID: [id number] DATE OF SERVICE: 04/23/2017 REASON FOR CONSULTATION: The patient is seen in urgent consultation at the request of Dr. Gomez regarding free air in the setting of ipilimumab-induced colitis. HISTORY OF PRESENT ILLNESS: The patient is a 76-year-old female with a history of breast cancer and malignant melanoma who has been receiving therapy with ipilimumab. She has been struggling with diarrhea for a couple weeks and was hospitalized on April 01. She came back into the hospital on April 18 with ongoing diarrhea. On April 20, Dr. Flores performed a flex sig which showed mild proctitis that became a little bit more intense just beyond the rectosigmoid through the sigmoid colon. He took biopsies and did not proceed past 35 cm. Biopsies demonstrated inflamed mucosa with diffuse chronic active inflammation including crypt abscesses. The patient tells me that the day after the colonoscopy she developed some right-sided abdominal pain. She has been receiving prednisone 40 mg daily and was also started on Remicade when she demonstrated little improvement on the steroids. She tells me that she took Imodium for the diarrhea yesterday which slowed her diarrhea significantly, but then increased her abdominal pain. Given the increase in abdominal pain a CT scan was obtained which I personally reviewed. This shows small to moderate amount of pneumoperitoneum up above the liver. The report also describes pneumobilia. I think this is a mis-read. I think it is just a couple small pockets of air that are trapped under the liver and the falciform. I see no free fluid or collections suggestive of abscess. The patient did have a mild leukocytosis the day after colonoscopy up to 11.4, but that normalized yesterday and has remained normal today. She has remained hemodynamically normal other than some mild tachycardia up to 118 this evening. She tells me that she had a significant amount of anxiety associated with hearing about the free air. PAST MEDICAL HISTORY: 1. Stage IV melanoma. 2. Breast cancer. 3. Polymyalgia rheumatica. 4. Irritable bowel syndrome. 5. Osteopenia. PAST SURGICAL HISTORY: 1. Mastectomy. 2. Lumpectomy. 3. Left axillary excisional lymph node biopsy. MEDICATIONS: Current medications are reviewed in the computer. ALLERGIES: She has allergies listed to: 1. OXYCODONE. 2. LACTOSE. 3. HYDROCODONE. 4. GLUTEN. FAMILY HISTORY: Is reviewed and noncontributory. SOCIAL HISTORY: The patient was a homemaker. She is . She lives on [facility]. She quit smoking more than 50 years ago and drinks about three alcoholic drinks per day. REVIEW OF SYSTEMS: Full review of systems is obtained and positive for diarrhea and some right lower quadrant abdominal pain. All other systems are reviewed and negative. PHYSICAL EXAMINATION: Vital signs: She has remained afebrile during her hospitalization. She is hemodynamically normal other than slight tachycardia recorded up to 118 this evening. Her blood pressure has been fine until this evening when it was 155/75. She is satting 100% on room air with respiratory rate of 16 breaths per minute. In general, she appears comfortable in no acute distress. Cardiovascular: She has a regular rate and rhythm. I do not appreciate murmurs, rubs, gallops. Pulmonary: Lungs clear to auscultation bilaterally. Vascular: She has no carotid bruit. Neck: She has no thyromegaly. Lymphs: She has no cervical lymphadenopathy. GI: Her abdomen is soft, nondistended. She has focal tenderness to palpation in the right mid abdomen. There is no rebound or guarding. Extremities: Warm without significant edema. Skin: Warm without rash. Neuro: Grossly intact. Psych: Pleasant and appropriate. Her white blood cell count this morning was 9.4, hematocrit stable at 27.9, platelet count was 473. Her creatinine 0.32. Her albumin was 2.5. IMAGING: CT scan of the abdomen is personally reviewed and as per the HPI. ASSESSMENT AND PLAN: This is a 76-year-old female with ipilimumab-induced colitis, now with a small to moderate amount of free air. My suspicion is that the patient probably suffered a microperforation during the sigmoidoscopy with biopsies. She developed some pain, as well as leukocytosis the day after the procedure. There are reports of ipilimumab induced spontaneous perforation in the literature. If that is what has happened, then she will likely require a partial, or possibly total abdominal colectomy. The fact that she is on high dose steroids as well as Remicade does warrant caution. These could mask systemic signs and inhibit spontaneous healing even if this is a micro- perforation. She is relatively comfortable with minimal pain which is well controlled with nonnarcotic pain medications at this time, and hemodynamically normal. I discussed the case with the hospitalist and recommend that she be made n.p.o. overnight and started on broad-spectrum antibiotics. I will obtain a plain film in the morning, if she has increasing pneumoperitoneum, or worrisome changes in her hemodynamics etc., then I will further discuss surgery with the patient. Surgery will involve an ostomy. DERICK
--- NOTE | 2017-04-24 02:49 | NUR ---
Pain/activity This RN was made aware of CT results by Hospitalist and plan for blood cultures, antibiotics and NPO diet. Pt reporting pain 2-3/10 throughout the night to right abdomen. Pt has heat pad to abdomen and reporting this to be helpful. Surgeon here to see pt and recommending IV antibiotics and observation. Scheduled IV Tylenol ordered as well. So far pt has had diarrhea x2 this shift. Continue close monitoring.
[2017-04-24 05:52] LABS: Mean Corpuscular Hemoglobin 27.3 pg (27.0-35.0)
[2017-04-24] MEDS: Piperacillin-Tazo 3.375 Gm Inj 3.375 GM in Dextrose 5% Minibag Plus 50 ML IV SCH ×2 (05:53→16:28)
[2017-04-24 06:14] LABS: Magnesium 2.1 mg/dL (1.6-2.6)
--- NOTE | 2017-04-24 06:14 | NUR ---
Diarrhea, nausea MD made aware pt now having loose bloody stools. IV Fluids ordered as well since pt is NPO. MD ordered one time dose of IV Lorazepam to help with nausea.
[2017-04-24 06:26] VITALS: BP 139/74; PULSE 61; RESP 18; O2SAT 95
[2017-04-24] MEDS: 0.9% Sodium Chloride 1,000 ML IV SCH ×2 (06:34→16:28)
--- NOTE | 2017-04-24 07:23 | PROG NOTE ---
[address] [address] PROGRESS NOTE PATIENT: SANDRA BATES : 1940 MR#: [id number] ADMIT: 04/18/2017 JOB ID: [id number] DATE: 04/24/2017 SUBJECTIVE: The patient is seen in followup for her ipilimumab-related colitis and pneumoperitoneum. This morning the patient tells me she is feeling better. Her pain is decreased. She did, however, have two bloody bowel movements last night. OBJECTIVE: This morning she is afebrile with a temperature 36.8 degrees, heart rate 61 beats per minute, and her blood pressure is 139/74, she is satting 95% on room air with a respiratory rate of 16 breaths per minute. In general, she appears very comfortable. Her abdomen is soft, nondistended. She shows no signs of tenderness like yesterday, though she does endorse some tenderness in the right abdomen. LABORATORY STUDIES: Her white blood cell count this morning remains normal at 8.3. Her hematocrit is up a little bit at 31.5 from 27.9 yesterday. Her platelet count is 517 up from 473. Her creatinine is 0.48. ASSESSMENT AND PLAN: This is a 76-year-old female with ipilimumab related colitis and pneumoperitoneum either related to the colonoscopy performed last Sunday or possibly a spontaneous perforation. Clinically, the patient is doing well this morning. She remained hemodynamically normal. She is more comfortable this morning then yesterday. The only change in her medications that I made yesterday was to put her on IV Tylenol rather than oral Tylenol. She did have some bloody bowel movements, but her hematocrit looks okay. At this point, I think continued observation is appropriate. I will keep her n.p.o. for now. I have ordered a plain film to just assess for increasing peritoneum. I will continue to follow along.
[2017-04-24] MEDS: predniSONE 20 mg Tablet PO SCH (07:36)
[2017-04-24] MEDS: Lactobacillus Rhamnosus 10 Bil Unit Capsule PO SCH ×2 (07:36→18:06)
--- NOTE | 2017-04-24 08:00 | NUR ---
Simon Spoke with Dr. Flores re: Lovenox injection d/t pt having bloody stools per NOC RN report. H&H appears stable but verbally instructed over the phone to HOLD Lovenox for today. Care continues.
[2017-04-24 09:14] VITALS: BP 122/56; PULSE 93; RESP 18; O2SAT 95
[2017-04-24] MEDS: Pantoprazole 20 mg ER24 Tablet PO SCH ×2 (10:09→21:02)
--- NOTE | 2017-04-24 10:22 | PCM.PNMED ---
Subjective Date of Service Apr 24, 2017 Subjective pt started having bloody stools and was found to have pneumoperitoneum on CT, consulted surgery, kept in NPO, started on zosyn, stopped prednisone pt c/o mild 3/10 abdominal pain this AM, no n/v Exam Vital Signs Vital Sign - Last Date Time Temp Pulse Resp B/P Pulse Ox O2 Delivery O2 Flow Rate FiO2 04/24/17 09:14 36.7 93 18 122/56 95 Room Air Intake and Output 04/23/17 04/23/17 04/24/17 Cumulative From/Thru 15:00 23:00 07:00 04/18/17 10:59 - 04/24/17 06:26 Intake Total 194 ml 470 ml 756 ml 50540 ml Output Total 500 ml 850 ml 9291 ml Balance 194 ml -30 ml -94 ml 7393 ml Intake Oral 470 ml 400 ml 6546 ml IV Total 194 ml 356 ml 06653 ml Output Urine Total 500 ml 850 ml 8590 ml Urine/Stool Mix 701 ml # Voids 8 # Bowel Movements 2 2 40 Exam cachectic elderly female, NAD, comfortably laying down on the bed no JVD, MMM, no LAD RRR, nl s1, s2 no mrg CTAB, no w,c S,mildly distended, mildly tender diffusely, active BS+ warm, no edema, pulses 2/2 Lab and Diagnostics Result Diagram: 04/24/1751404/24/17514 Additional Diagnostics DATE OF PROCEDURE: 04/18/2017 PRIMARY PROVIDER: Kentrell Gan MD. PROCEDURE: Colonoscopy with biopsies. INDICATIONS: A 76-year-old female with severe diarrhea following the initiation of ipilimumab. She has only been partially responsive to steroids. EQUIPMENT: [facility]. SEDATION: 1. Versed 5 mg. 2. Fentanyl 100 mcg. COMPLICATIONS: None identified. BOWEL PREPARATION: Excellent with a single Fleet's. PROCEDURE INFORMATION: After the risks and benefits were explained, written and verbal informed consent was obtained. The patient was brought into the endoscopy suite and placed into the left lateral decubitus position. Sedation was achieved as above. A digital rectal examination accomplished. Mild internal hemorrhoids noted. The scope was then introduced into the rectum and advanced with great difficulty to about 35 cm from the anal verge in the sigmoid. The patient had a very tortuous bowel. It was inflamed and she demonstrated suboptimal tolerance with intermittent SVT into the high 140s, low 150s. She would respond with Valsalva. We did not make an effort to push beyond this depth in that we already had clear-cut evidence of proctocolitis. Biopsies were acquired. The scope was withdrawn. Patient tolerated the procedure reasonably well. The bowel was decompressed prior to removing the scope. FINDINGS: Mild proctitis characterized by exudate, erythema, loss of vascular pattern. There were punctate ulcerations. This became a little more intense just beyond the rectosigmoid through the sigmoid colon. We took a couple of biopsies from the sigmoid for histopathologic confirmation. As mentioned above, we did not attempt to navigate beyond 35 cm secondary to patient's heart rate intermittently spiking at 150 beats per minute.. ENDOSCOPIC DIAGNOSIS: Proctocolitis. RECOMMENDATIONS: 1. Await histopathology. 2. Continue IV hydrocortisone. 3. Hepatitis B serology and QuantiFERON Gold results are still pending. There was hyperinflation on the chest x-ray suggesting COPD but otherwise no acute cardiopulmonary abnormalities. Ideally, I would like to see these results returned prior to first dose of Remicade. Perhaps we could see how she responds clinically with the IV steroids over the next 24 hours and if she is not substantially better get the first dose on board while we await the results of some of the testing. Dane Flores MD 04/19/17 3712 Assessment & Plan Diane is a pleasant 76 yrs old lady with past medical history of breast cancer, melanoma, PMR, IBS came to emergency room due to worsening of diarrhea of 5 days. #pneumoperitoneum, developed 04/23-, likely due to microperforation, ddx: adverse effect from Ipilimumab vs colonoscopic bx. -appreciate surgical eval, keep strict NPO, awaits KUB, serial abdominal exam. # Diarrhea, acute on chronic,poa, Due to Ipilimumab.Patient had recent similar hospitalization and failed prednisone treatment. stool pcr negative, initial LA 2.5., -s/p sigmoidoscopy 04/19 which shows Proctocolitis.Initially started on Hydrocortisone 100mg iv q8h then prednisone 40 mg daily for 2days, stopped today given pneumoperitoneum, persistent diarrhea, Last Remicade given on 04/20 per GI and tolerated well. -IVF on and off, stopped yesterday as pt was improving, will restart given ongoing diarrhea, NPO -quantiferon gold TB pending.hep sAg negative HBsAb positive,HBCAb positive. Immunity possibly from recent infection. -loperamide prn -GI Dr Flores consulted, appreciate follow up #Episodes of SVTs on 04/19 -Probably due to electrolyte disturbance -Hypokalemia repleted -12 lead ekg unremarkable #Anemia -Due to bloody diarrhea -Hemoglobin drop to 9.6 from 11.4 noted -Continue to monitor # Hyponatremia, improving -Due to hypovolemia -NS at 75ml/h # Bandemia , resolved -Bandemia of 10% of noted. Afebrile. No leukocytosis. Pro calcitonin negative. Initial stool PCR negative. No evidence of infection as well. -CBC daily # Recently diagnosed melanoma -1st cycle of immunotherapy given a month ago. Treatment remains on hold due to side effect # PMR -Pain much better now due to steroids per patient #History of breast cancer -letrozole discontinued a month ago for unclear reason -Dr Nolan following #ppx -Lovenox,ppi given steroid Patient admitted under inpatient status with expected length of stay > 2 midnights for severity of present symptoms, complexities of treatment plan and risk for adverse events DNR/DNI ,patient interested to fill in POLST,will fill in POLST Disposition: pending based on surgical eval VTE Mechanical Devices: Intermittant Pneumatic CD Resuscitation Status: DNR/DNI:Do Not Resuscitate/Intubate Time spent 35min [place] He MD Apr 24, 2017 10:22
[2017-04-24] MEDS: Hydrocortisone 50 mg/mL 2 mL Inj IVPUSH SCH ×2 (11:34→19:04)
--- NOTE | 2017-04-24 12:00 | DRSVH ---
PROCEDURE: X-RAY ABDOMEN WITH ERECT AND/OR DECUBITUS VIEWS ([id number]) INDICATIONS: increasing pneumoperitoneum? TECHNIQUE: 2 views of the abdomen were acquired. COMPARISON: [facility], CT, CT ABD PELVIS W CON, 04/23/2017, 20:38. FINDINGS: Surgical changes and devices: None. Bowel: Free air visualized underlying the hemidiaphragms bilaterally similar to prior CT scan. Soft tissues: Abnormal bowel gas pattern is present. Asymmetric dilatation of small bowel throughou t the abdomen and pelvis with paucity of gas within the colon. No pneumatosis or bowel wall thickeni ng. No pneumoperitoneum. Bones: No suspicious bony abnormalities. Small pleural effusions are demonstrated. IMPRESSION: 1. Pneumoperitoneum similar to prior CT scan and persistent small bowel obstruction. 2. Small pleural effusions. Dictated by: Roshan EDGE Interpreted: Bernabe Magallon MD on 04/24/2017 at 9:05 Approved by: Bernabe Magallon M.D. on 04/24/2017 at 11:58
--- NOTE | 2017-04-24 13:58 | NUR ---
[facility] Signed @ 850AM
[2017-04-24 14:38] VITALS: BP 123/73; PULSE 94; RESP 18; O2SAT 98
--- NOTE | 2017-04-24 15:22 | NUR ---
Off Unit/Behavior Pt off unit at ~0800 to Xray and returned within minutes; left via wc. Up to BR at return and then back to bed. Pt anxious re: plan of care. 3x different doctors in room this AM to talk to pt and pt overwhelmed with information, stating that she was not fully awake. This RN attempted to inform pt of what the different doctors had to say; spent time to read over their notes from previous day and then from what was said this morning to pt. Pt then stating understanding as best as she could at this point in time. Continues abx and NPO for bowel rest. Pt calm and cooperative with care. Care continues.
--- NOTE | 2017-04-24 17:46 | PROG NOTE ---
[address] [address] PROGRESS NOTE PATIENT: SANDRA BATES : 1940 MR#: [id number] ADMIT: 04/18/2017 JOB ID: [id number] DATE: 04/24/2017 SUBJECTIVE: The patient's CAT scan was reviewed yesterday evening and Dr. Pena was involved. Fortunately, the patient has remained overall clinically stable in spite of the impressive findings at CT. She has been commenced on antibiotic, seems to overall be doing a little better with respect to pain. She had some bloody stools overnight, but H and H remain acceptable. Stooling has fallen off today. We re-initiated IV hydrocortisone at essentially stress dosing concentrations. The patient has been n.p.o. today, but is thirsty and hoping to sample a little bit of clear liquids. Her abdominal x-ray report was noted. She has no nausea or vomiting. OBJECTIVE: Vitals stable, reviewed. Patient is conversational, alert, oriented, appropriate, in no distress. Abdomen is not distended. There was some mild tenderness, still mostly on the right side. Bowel sounds were present and active. LABORATORIES: White count 8.3. Hemoglobin 10.5, platelets 517. Liver tests normal. Sodium 133, creatinine 0.48, albumin 2.7. Her QuantiFERON Gold came back indeterminate which is actually not really that surprising in that she had been in essence immunosuppressed with steroids. IMAGING: As above. ASSESSMENT AND PLAN: A 76-year-old female with ipilimumab-induced colitis. She was having an atypical response to Remicade and CAT scan yesterday evening revealed pneumoperitoneum. Difficult to say whether she has had a spontaneous perforation from the underlying colitic process or whether this was induced by the CO2 insufflation at flexible sigmoidoscopy. At any rate, she appears to be doing remarkably well all things considered, and I would agree with an attempt at pursuing nonoperative intervention with ongoing IV antibiotics and slowly restarting diet at the discretion of Dr. Pena. Will continue the IV hydrocortisone at 50 mg q.8 h. for now. I will continue to follow with you.
[2017-04-24 20:26] VITALS: BP 120/61; PULSE 101; RESP 18; O2SAT 97
[2017-04-24] MEDS: LORazepam 0.5 mg Tablet PO PRN (21:02)
[2017-04-25 00:37] VITALS: BP 117/62; PULSE 94; RESP 16; O2SAT 98
[2017-04-25] MEDS: Acetaminophen IV 1,000 MG in IV Premix 1 EACH IV SCH (00:40)
[2017-04-25] MEDS: Piperacillin-Tazo 3.375 Gm Inj 3.375 GM in Dextrose 5% Minibag Plus 50 ML IV SCH ×3 (00:55→17:03)
[2017-04-25] MEDS: 0.9% Sodium Chloride 1,000 ML IV SCH ×2 (02:32→17:03)
[2017-04-25] MEDS: Hydrocortisone 50 mg/mL 2 mL Inj IVPUSH SCH ×3 (02:32→17:59)
[2017-04-25 04:27] VITALS: BP 108/51; PULSE 91; RESP 16; O2SAT 97
--- NOTE | 2017-04-25 04:34 | NUR ---
Activity Pt reporting abdominal pain has improved to 2/10 and pt had last dose of scheduled IV Tylenol. Pt tolerating clear liquids and was encouraged to take small amounts slowly. Pt requested Lorazepam at bedtime and was able to sleep. Pt has refused the SCDs despite education. This morning, pt denied having diarrhea overnight.
[2017-04-25 06:08] LABS: BASOPHILS % (AUTO) 0 % (0-3); EOSINOPHILS % (AUTO) 3.6 % (0-5); MONOCYTES % (AUTO) 4.9 % (4-12); Mean Corpuscular Volume 82.1 fL (81-100); NEUTROPHILS % (AUTO) 81.3 % (40-74); Platelet Count 389 bil/L (150-400)
[2017-04-25 06:37] LABS: Magnesium 1.9 mg/dL (1.6-2.6); Phosphorus 2.3 mg/dL (2.5-4.9)
[2017-04-25] MEDS ORDERED: Potassium Chloride Inj 30 MEQ in Dextrose 5% 500 ML IV ONE (07:15)
[2017-04-25] MEDS: Pantoprazole 20 mg ER24 Tablet PO SCH ×2 (08:50→20:44)
[2017-04-25] MEDS: Lactobacillus Rhamnosus 10 Bil Unit Capsule PO SCH ×2 (08:50→17:52)
--- NOTE | 2017-04-25 09:14 | PROG NOTE ---
[address] [address] PROGRESS NOTE PATIENT: SANDRA BATES : 1940 MR#: [id number] ADMIT: 04/18/2017 JOB ID: [id number] DATE: 04/25/2017 SUBJECTIVE: The patient seen in followup for her ipilimumab associated colitis with pneumoperitoneum. Yesterday I started the patient on a clear liquid diet. She has done well and tolerated that fine. Her pain continues to decrease. She has had some diarrhea, which was nonbloody. OBJECTIVE: She has remained afebrile and hemodynamically normal. This morning, she is alert and oriented and appears comfortable. She complains of a little bit of left lower quadrant tenderness. The rest of the belly is benign. Her white blood cell count this morning is 7. Her hematocrit is 26.1. Her platelet count is 389. Her creatinine is 0.38. ASSESSMENT AND PLAN: This is a 76-year-old female with metastatic melanoma who has developed ipilimumab associated colitis and free air. Overall, she continues do well. I grew increasingly optimistic that she is going to get away with nonoperative management. We advanced her to a full liquid diet today. I have turned down her IV fluids to 50 mL an hour and she seems to be getting somewhat fluid up. I will defer electrolyte correction to the hospitalist.
[2017-04-25 09:32] VITALS: BP 118/72; PULSE 101; RESP 18; O2SAT 99
--- NOTE | 2017-04-25 09:32 | PCM.PNMED ---
Subjective Date of Service Apr 25, 2017 Subjective pain is better, 12/15/09 today, hadnon-bloody diarrhea, denied n/v pt was started on liquid diet, poor appetite, continued abx, IVF, hydrocortisone iv Exam Vital Signs Vital Sign - Last Date Time Temp Pulse Resp B/P Pulse Ox O2 Delivery O2 Flow Rate FiO2 04/25/17 04:27 36.6 91 16 108/51 97 Room Air Intake and Output 04/24/17 04/24/17 04/25/17 Cumulative From/Thru 15:00 23:00 07:00 04/18/17 10:59 - 04/25/17 05:32 Intake Total 1152 ml 1771 ml 33795 ml Output Total 300 ml 500 ml 64501 ml Balance 852 ml 1271 ml 9516 ml Intake Oral 200 ml 200 ml 6946 ml IV Total 952 ml 1571 ml 53960 ml Output Urine Total 300 ml 500 ml 9390 ml Urine/Stool Mix 701 ml # Voids 1 9 # Bowel Movements 0 40 Exam cachectic elderly female, NAD, comfortably laying down on the bed no JVD, MMM, no LAD RRR, nl s1, s2 no mrg CTAB, no w,c S,mildly distended, mildly tender diffusely, active BS+ warm, no edema, pulses 2/2 IVs and Medications Medications Reviewed: Medications were reviewed in detail Lab and Diagnostics Result Diagram: 04/25/1751904/25/17519 Additional Diagnostics DATE OF PROCEDURE: 04/18/2017 PRIMARY PROVIDER: Kentrell Gan MD. PROCEDURE: Colonoscopy with biopsies. INDICATIONS: A 76-year-old female with severe diarrhea following the initiation of ipilimumab. She has only been partially responsive to steroids. EQUIPMENT: [facility]. SEDATION: 1. Versed 5 mg. 2. Fentanyl 100 mcg. COMPLICATIONS: None identified. BOWEL PREPARATION: Excellent with a single Fleet's. PROCEDURE INFORMATION: After the risks and benefits were explained, written and verbal informed consent was obtained. The patient was brought into the endoscopy suite and placed into the left lateral decubitus position. Sedation was achieved as above. A digital rectal examination accomplished. Mild internal hemorrhoids noted. The scope was then introduced into the rectum and advanced with great difficulty to about 35 cm from the anal verge in the sigmoid. The patient had a very tortuous bowel. It was inflamed and she demonstrated suboptimal tolerance with intermittent SVT into the high 140s, low 150s. She would respond with Valsalva. We did not make an effort to push beyond this depth in that we already had clear-cut evidence of proctocolitis. Biopsies were acquired. The scope was withdrawn. Patient tolerated the procedure reasonably well. The bowel was decompressed prior to removing the scope. FINDINGS: Mild proctitis characterized by exudate, erythema, loss of vascular pattern. There were punctate ulcerations. This became a little more intense just beyond the rectosigmoid through the sigmoid colon. We took a couple of biopsies from the sigmoid for histopathologic confirmation. As mentioned above, we did not attempt to navigate beyond 35 cm secondary to patient's heart rate intermittently spiking at 150 beats per minute.. ENDOSCOPIC DIAGNOSIS: Proctocolitis. RECOMMENDATIONS: 1. Await histopathology. 2. Continue IV hydrocortisone. 3. Hepatitis B serology and QuantiFERON Gold results are still pending. There was hyperinflation on the chest x-ray suggesting COPD but otherwise no acute cardiopulmonary abnormalities. Ideally, I would like to see these results returned prior to first dose of Remicade. Perhaps we could see how she responds clinically with the IV steroids over the next 24 hours and if she is not substantially better get the first dose on board while we await the results of some of the testing. Dane Flores MD 04/19/17 1128 Assessment & Plan Diane is a pleasant 76 yrs old lady with past medical history of breast cancer, melanoma, PMR, IBS came to emergency room due to worsening of diarrhea of 5 days. #pneumoperitoneum, developed 04/23-, likely due to microperforation, ddx: adverse effect from Ipilimumab vs iatrogenic with colonoscopy, bowel inflation -pt seems to improve with non-surgical tx, appreciate surgical eval, diet advanced to full liquid per -serial abd exam. # Diarrhea, acute on chronic,poa, Due to Ipilimumab.Patient had recent similar hospitalization and failed prednisone treatment. stool pcr negative, initial LA 2.5., -s/p sigmoidoscopy 04/19 which shows Proctocolitis.Initially started on Hydrocortisone 100mg iv q8h then prednisone 40 mg daily for 2days, stopped 04/24 given pneumoperitoneum, persistent diarrhea, Last Remicade given on 04/20 per GI and tolerated well. -continue hydrocortisone per GI, -IVF was on and off, currently 50cc/hr NS -quantiferon gold TB pending.hep sAg negative HBsAb positive,HBCAb positive. Immunity possibly from recent infection. -loperamide prn -GI Dr Flores consulted, appreciate follow up #Episodes of SVTs on 04/19 -Probably due to electrolyte disturbance -Hypokalemia repleted -12 lead ekg unremarkable #Anemia -Due to bloody diarrhea -Hemoglobin drop to 9.6 from 11.4 noted -Continue to monitor # Hyponatremia, improving -Due to hypovolemia # Bandemia , resolved -Bandemia of 10% of noted. Afebrile. No leukocytosis. Pro calcitonin negative. Initial stool PCR negative. No evidence of infection as well. -CBC daily # Recently diagnosed melanoma -1st cycle of immunotherapy given a month ago. Treatment remains on hold due to side effect # PMR -Pain much better now due to steroids per patient #History of breast cancer -letrozole discontinued a month ago for unclear reason -Dr Nolan following #ppx -Lovenox,ppi given steroid Patient admitted under inpatient status with expected length of stay > 2 midnights for severity of present symptoms, complexities of treatment plan and risk for adverse events DNR/DNI ,patient interested to fill in POLST,will fill in POLST Disposition: pending based on surgical eval VTE Mechanical Devices: Intermittant Pneumatic CD Resuscitation Status: DNR/DNI:Do Not Resuscitate/Intubate Time spent 35min [place] He MD Apr 25, 2017 09:32
[2017-04-25 14:33] VITALS: BP 131/76; PULSE 105; RESP 18; O2SAT 99
--- NOTE | 2017-04-25 14:40 | NUR ---
GI Pt was up to the bathroom and had an accident on the floor. Dickson red blood noted in a small amount. VSS. Pt denies dizziness or light-headedness. A&Ox3. Tolerating meals with decreased appetite. Mild nausea. Pt decided to wait on taking medication for nausea. MD notified. Will continue to monitor.
--- NOTE | 2017-04-25 15:54 | NUR ---
Social Work: Continued Discharge Planning D: EMR reviewed. Pt is on day 7 of hospitalization. Pt has been up ambulating in halls independently. SW met with pt to discuss HH and In Home Caregiving. Pt again requested SNF placement. SW explained that SNF placement would only be possible if MD believed it was medically necessary. Pt is also open to HH RN 3x/week, as per MD recommendations. SW explained at length HH RN and in home caregivers, including the roles and the differences between the two. Pt is agreeable to both. Pt has no HH vendor preference, SW consulted vendor calendar and will make referral to [facility] for RN 3x week. F2F will be completed by the doctor. T/C to An Becker, [facility] liaison, regarding pt's referral. An will pick pack worker pt's clinical information for review this evening. SW spoke with pt regarding in home caregivers, explained that coordinating her in home care is her responsibility but SW is happy to call the company she chooses. Pt is agreeable to this. Pt was provided with Senior Resource Guide with the [employer] marked. Pt to discharge home with HH RN and in home caregivers, SW will continue to follow. A: Pt for whom HH RN 3x/week has been deemed medically necessary. P: Pt requested referral be made to [facility] for HH RN needs. An will pick pack worker pt's clinicals this evening for review. Pt is working on coordinating in home caregivers to assist her at home. Pt has Senior Resource Booklet. Pt to discharge home with HH RN and in home care, SW will continue to follow. RASHAD York Addendum: 04/26/17 at 1439 by ERLINDA GUNDERSON [facility] is able to formally accept pt for HH services. This has been confirmed with An Becker. F2F was faxed to An [phone]. Matilda Gunderson, ADMINISTRATIVE RESOURCES ASSOCIATE
[2017-04-25] MEDS: LORazepam 0.5 mg Tablet PO PRN (17:03)
--- NOTE | 2017-04-25 17:56 | PROG NOTE ---
[address] [address] PROGRESS NOTE PATIENT: SANDRA BATES : 1940 MR#: [id number] ADMIT: 04/18/2017 JOB ID: [id number] DATE: 04/25/2017 SUBJECTIVE: The right-sided abdominal pain is much improved. She has had a little nausea which tends to improve with benzodiazepine. She has not had any vomiting. She is still putting out numerous loose stools and having a sense of urgency. Today she has had some discomfort in the left lower quadrant which is relatively new. She has been afebrile. She remains on hydrocortisone 50 mg q.8 IV, Zosyn, and is tolerating a liquid diet. OBJECTIVE: Temperature 36.7, pulse 105, breathing 18, blood pressure 131/76, pulse ox 99% on room air. The patient was conversational, in no distress. Alert, oriented, appropriate. Abdomen is soft. I did not appreciate any guarding, especially on the right side today, which is definitely an improvement. She had some mild tenderness in the left lower quadrant but certainly no guarding and no rebound appreciated. LABORATORY: Calcium was low at 6.6, but albumin is also low at 1.9. Potassium was low at 3.2. Creatinine is stable. White count 7. Hemoglobin was 8.6 today. Hematocrit is 26.1. Platelets 389. ASSESSMENT AND RECOMMENDATIONS: This is a 76-year-old female with ipilimumab induced colitis who experienced perforation. She had a flexible sigmoidoscopy last week and certainly unclear whether the air insufflation from the exam was too much stress for her bowel to handle or whether the perforation occurred spontaneously, even possibly before it. At any rate she is being managed quite successfully thus far non operatively with IV antibiotic. She still has not had a tremendous response to the Remicade. In looking through the literature patients remain symptomatic for about 16 days following the initial dose of Remicade. About 25% of patients may ultimately not respond to Remicade. At this point it would be ideal if we could start to advance her diet tomorrow if she continues clinical improvement and then perhaps get her transitioned back over to the oral prednisone with a plan for tapering. Will need to monitor her H and H quite closely and her ongoing symptoms. If she ultimately fails the Remicade, she still unfortunately may need to be considered for a total proctocolectomy. In the meantime I would like to repeat a stool assay to just once again exclude any element of infectious associated diarrhea.
--- NOTE | 2017-04-25 19:00 | PROG NOTE ---
[address] [address] PROGRESS NOTE PATIENT: SANDRA BATES : 1940 MR#: [id number] ADMIT: 04/18/2017 JOB ID: [id number] DATE: 04/25/2017 SUBJECTIVE: The patient is being seen today for clinic evaluation. She carries a diagnosis of ipilimumab-induced colitis. The patient was last treated with her ipilimumab on March 12, 2017 which was her only treatment to date. Since developing her colitis, she has undergone therapy with IV prednisone followed by recent treatment with Remicade on April 20, 2017. The patient has also undergone colonoscopy on April 20, 2017. The patient's clinical presentation has been complicated by discovery of pneumoperitoneum. The patient is currently on pip tazo being conservatively managed with clinical improvement and no clear indication for surgical intervention at this time. Clinically, the patient continues to feel better. She has advanced her diet and is moving her bowels again. No blood in her stool was reported. She is also taking prednisone 20 mg b.i.d. REVIEW OF SYSTEMS: The remainder of her review of systems was negative for any fevers, chills, cough, sore throat. PAST MEDICAL HISTORY: Significant for: 1. Immune-related adverse effect from ipilimumab causing a secondary colitis with grade 3 diarrhea. The patient initially responding to IV prednisone but, unfortunately, with recurrence of diarrhea has started Remicade 5 mg/kg. Cycle one was on April 20, 2017. She has had a clinical response. 2. Malignant melanoma, stage III, status post one dose of ipilimumab in the adjuvant setting administered on March 12, 2017. 3. Pneumoperitoneum identified on CT scan of the abdomen dated April 23, 2017 reporting a small-to- moderate amount of pneumoperitoneum within the upper abdomen. Surgery is involved at this time. 4. Polymyalgia rheumatica. 5. Left-sided multifocal DCIS. 6. Irritable bowel syndrome. 7. Osteopenia. PHYSICAL EXAMINATION: Vital signs today reporting a weight of 47 kg which is stable, blood pressure 131/76, temperature 36, pulse 105, respiratory rate is 18 and she is satting at 99% on room air. She is A and O x3. In good spirits overall. Affect is appropriate. PERRLA. Anicteric. Abdomen nondistended, nontender. LABORATORY DATA: From April 25, 2017 showing a white cell count of , hemoglobin of 8.6, platelet count of 389. Sodium 133, potassium 3.2, serum creatinine 0.3, calcium 6.6, AST 8, ALT 11, alk phos 62. ASSESSMENT AND PLAN: The patient is a very pleasant, 76-year-old female with ipilimumab-induced colitis currently managed with p.o. prednisone 20 mg daily and Remicade q. 2 weeks last administered on April 20, 2017. The patient's diarrhea is improving to stable. In regards to her pneumoperitoneum which is suggestive of a small colonic perforation, this again is being managed medically with IV antibiotics with good clinical response. Her diet has been advanced. RECOMMENDATIONS: Recommendations from oncology are to continue the current management per GI, Surgery and hospitalist service. Would recommend transfusing 2 units of packed red blood cells if her hemoglobin drops below 8 or she shows signs or symptoms of cardiac decompensation.
[2017-04-25 21:09] VITALS: BP 146/61; PULSE 82; RESP 18; O2SAT 99
[2017-04-25] MEDS: Nystatin 100,000 Unit/mL 5 mL Suspension PO SCH ×2 (22:47→22:49)
[2017-04-26] MEDS: Hydrocortisone 50 mg/mL 2 mL Inj IVPUSH SCH ×3 (01:32→18:26)
[2017-04-26] MEDS: Piperacillin-Tazo 3.375 Gm Inj 3.375 GM in Dextrose 5% Minibag Plus 50 ML IV SCH ×3 (01:32→16:12)
[2017-04-26] MEDS: LORazepam 0.5 mg Tablet PO PRN ×3 (01:40→21:56)
--- NOTE | 2017-04-26 05:48 | NUR ---
GI PT CONTINUES WITH BLOODY WATERY STOOLS THIS SHIFT. SAMPLE SENT TO LAB PER ORDERS. PT HAS CRAMPING AND NAUSEA, ALLEVIATED WITH ATIVAN FOR A SHORT TIME. REFUSED OFFER OF PAIN MEDS OR OTHER ANTIEMETIC. PT USING BSC THIS SHIFT SO SHE CAN GET UP QUICKLY AND NOT GET TANGLED IN HER LINES. TOLERATING ACTIVITY WELL, CALLING FOR HELP WHEN GETTING BACK TO BED. CARE CONTINUES
[2017-04-26 06:01] VITALS: BP 122/64; PULSE 92; RESP 16; O2SAT 97
[2017-04-26 07:52] VITALS: BP 110/67; PULSE 91; RESP 16; O2SAT 96
[2017-04-26] MEDS: Pantoprazole 20 mg ER24 Tablet PO SCH ×2 (08:12→20:23)
[2017-04-26] MEDS: Nystatin 100,000 Unit/mL 5 mL Suspension PO SCH ×4 (08:13→21:56)
[2017-04-26] MEDS: Lactobacillus Rhamnosus 10 Bil Unit Capsule PO SCH ×2 (08:13→18:20)
[2017-04-26 08:26] LABS: BASOPHILS % (AUTO) 0 % (0-3)
[2017-04-26 08:30] LABS: EOSINOPHILS % (AUTO) 0 % (0-5); MONOCYTES % (AUTO) 12.6 % (4-12); Mean Corpuscular Volume 80.9 fL (81-100); NEUTROPHILS % (AUTO) 69.7 % (40-74); Platelet Count 420 bil/L (150-400)
[2017-04-26] MEDS ORDERED: Furosemide 10 mg/mL 2 mL Inj IVPUSH ONE (08:40)
[2017-04-26 08:52] LABS: Magnesium 1.9 mg/dL (1.6-2.6); Phosphorus 1.4 mg/dL (2.5-4.9)
[2017-04-26 09:44] VITALS: BP 114/70; PULSE 132
--- NOTE | 2017-04-26 10:10 | PCM.PNMED ---
Subjective Date of Service Apr 26, 2017 Subjective pt is feeling better, tolerated liquid diet having mild abd pain, having watery no blood, pt thinks hydrocortisone is working better for diarrhea noted pedal edema developed since yesterday, denied SOB, IVF was stopped this AM Exam Vital Signs Vital Sign - Last Date Time Temp Pulse Resp B/P Pulse Ox O2 Delivery O2 Flow Rate FiO2 04/26/17 09:44 132 114/70 04/26/17 07:52 36.7 16 96 Room Air Intake and Output 04/25/17 04/25/17 04/26/17 Cumulative From/Thru 15:00 23:00 07:00 04/18/17 10:59 - 04/26/17 05:50 Intake Total 690 ml 600 ml 76202 ml Output Total 400 ml 950 ml 34406 ml Balance 290 ml -350 ml 9456 ml Intake Oral 690 ml 600 ml 8236 ml IV Total 16898 ml Output Urine Total 400 ml 9790 ml Urine/Stool Mix 950 ml 1651 ml # Voids 9 # Bowel Movements 40 Exam cachectic elderly female, NAD, comfortably laying down on the bed no JVD, MMM, no LAD RRR, nl s1, s2 no mrg CTAB, no w,c S,mildly distended, less tender, active BS+ warm,2+pitting edema up to mid calf, warm, pulses2/2 IVs and Medications Medications Reviewed: Medications were reviewed in detail Lab and Diagnostics Result Diagram: 04/26/1743 04/26/1743 Additional Diagnostics DATE OF PROCEDURE: 04/18/2017 PRIMARY PROVIDER: Kentrell Gan MD. PROCEDURE: Colonoscopy with biopsies. INDICATIONS: A 76-year-old female with severe diarrhea following the initiation of ipilimumab. She has only been partially responsive to steroids. EQUIPMENT: [facility]. SEDATION: 1. Versed 5 mg. 2. Fentanyl 100 mcg. COMPLICATIONS: None identified. BOWEL PREPARATION: Excellent with a single Fleet's. PROCEDURE INFORMATION: After the risks and benefits were explained, written and verbal informed consent was obtained. The patient was brought into the endoscopy suite and placed into the left lateral decubitus position. Sedation was achieved as above. A digital rectal examination accomplished. Mild internal hemorrhoids noted. The scope was then introduced into the rectum and advanced with great difficulty to about 35 cm from the anal verge in the sigmoid. The patient had a very tortuous bowel. It was inflamed and she demonstrated suboptimal tolerance with intermittent SVT into the high 140s, low 150s. She would respond with Valsalva. We did not make an effort to push beyond this depth in that we already had clear-cut evidence of proctocolitis. Biopsies were acquired. The scope was withdrawn. Patient tolerated the procedure reasonably well. The bowel was decompressed prior to removing the scope. FINDINGS: Mild proctitis characterized by exudate, erythema, loss of vascular pattern. There were punctate ulcerations. This became a little more intense just beyond the rectosigmoid through the sigmoid colon. We took a couple of biopsies from the sigmoid for histopathologic confirmation. As mentioned above, we did not attempt to navigate beyond 35 cm secondary to patient's heart rate intermittently spiking at 150 beats per minute.. ENDOSCOPIC DIAGNOSIS: Proctocolitis. RECOMMENDATIONS: 1. Await histopathology. 2. Continue IV hydrocortisone. 3. Hepatitis B serology and QuantiFERON Gold results are still pending. There was hyperinflation on the chest x-ray suggesting COPD but otherwise no acute cardiopulmonary abnormalities. Ideally, I would like to see these results returned prior to first dose of Remicade. Perhaps we could see how she responds clinically with the IV steroids over the next 24 hours and if she is not substantially better get the first dose on board while we await the results of some of the testing. Dane Flores MD 04/19/17 1515 Assessment & Plan Diane is a pleasant 76 yrs old lady with past medical history of breast cancer, melanoma, PMR, IBS came to emergency room due to worsening of diarrhea of 5 days. #pneumoperitoneum, developed 04/23-, likely due to microperforation, ddx: adverse effect from Ipilimumab vs iatrogenic with colonoscopy, bowel inflation with CO2 -pt seems to improve with non-surgical tx, appreciate surgical eval, diet advanced to full liquid per -serial abd exam. # Diarrhea, acute on chronic,poa, Due to Ipilimumab.Patient had recent similar hospitalization and failed prednisone treatment. stool pcr negative, initial LA 2.5., -s/p sigmoidoscopy 04/19 which shows Proctocolitis.Initially started on Hydrocortisone 100mg iv q8h then prednisone 40 mg daily for 2days, stopped 04/24 given pneumoperitoneum, persistent diarrhea, Last Remicade given on 04/20 per GI and tolerated well. -continue hydrocortisone per GI, -IVF was on and off, stopped IVF today given LE edema -quantiferon gold TB pending.hep sAg negative HBsAb positive,HBCAb positive. Immunity possibly from recent infection. -loperamide prn -GI Dr Flores consulted, appreciate follow up LE edema, likely due to IVF, respiratory status stable -will try lasix 20mg iv today, consider another dosing tomorrow #Episodes of SVTs on 04/19 -Probably due to electrolyte disturbance -Hypokalemia repleted -12 lead ekg unremarkable #Anemia -Due to bloody diarrhea -Hemoglobin drop to 9.6 from 11.4 noted -Continue to monitor # Hyponatremia, improving -Due to hypovolemia # Bandemia , resolved -Bandemia of 10% of noted. Afebrile. No leukocytosis. Pro calcitonin negative. Initial stool PCR negative. No evidence of infection as well. -CBC daily # Recently diagnosed melanoma -1st cycle of immunotherapy given a month ago. Treatment remains on hold due to side effect # PMR -Pain much better now due to steroids per patient #History of breast cancer -letrozole discontinued a month ago for unclear reason -Dr Nolan following dvt ppx Lovenox,ppi given steroid DNR/DNI ,patient interested to fill in POLST,will fill in POLST Disposition: pending based on surgical eval VTE Mechanical Devices: Intermittant Pneumatic CD Resuscitation Status: DNR/DNI:Do Not Resuscitate/Intubate Time spent 35min [place] He MD Apr 26, 2017 09:59
[2017-04-26 13:03] VITALS: BP 119/63; PULSE 89; RESP 18; O2SAT 98
--- NOTE | 2017-04-26 13:17 | PROG NOTE ---
[address] [address] PROGRESS NOTE PATIENT: SANDRA BATES : 1940 MR#: [id number] ADMIT: 04/18/2017 JOB ID: [id number] DATE: 04/26/2017 SUBJECTIVE: The patient is seen in followup for her recent pneumoperitoneum. She continues to do well. She complains of liquid diarrhea. There is no blood in it. She is having minimal abdominal pain. She has been tolerating a full liquid diet, though she is not very hungry. She has remained afebrile. She has had intermittent mild tachycardia but has otherwise been hemodynamically normal. OBJECTIVE: Her abdomen is soft, nontender, nondistended today. LABORATORY STUDIES: Her white blood cell count remains normal at 4.5, hematocrit remains stable at 26.7. Her creatinine is fine at 0.38. ASSESSMENT AND PLAN: This is a 76-year-old female with ipilimumab induced colitis with free air found on recent CT. I think from a surgical standpoint, she is doing well. I think it is unlikely that she is going to require surgery given how she has been doing over the last few days. I am going to advance her to a regular diet. From my standpoint, she can probably go home in the next couple of days if her diarrhea is controlled enough that she is not going to get dehydrated.
--- NOTE | 2017-04-26 18:02 | NUR ---
GI/Activity Pt continues to have loose watery stool with some blood. Advanced diet and pt is tolerating bites of her meal for lunch. Pt up and ambulating in the hallway SBA. Steady gait. Pt given Ativan for nausea but declines anything else for pain or nausea. Pt rates abdominal pain 2/10 and states that it is tolerable.
--- NOTE | 2017-04-26 19:51 | PROG NOTE ---
[address] [address] PROGRESS NOTE PATIENT: SANDRA BATES : 1940 MR#: [id number] ADMIT: 04/18/2017 JOB ID: [id number] DATE: 04/26/2017 SUBJECTIVE: The patient's left lower quadrant discomfort has improved and comes on intermittently. Diarrhea symptoms have improved. She has been using the Ativan a little more liberally today. She is anxious about how she might get on at home with an elderly and fairly significant fatigue. H and H are stable today. Hemoglobin 8.9. She has remained afebrile. Ambulatory in her room. On diet has been advanced to general. OBJECTIVE: Temperature 36.6, pulse 89, breathing 18, blood pressure 119/63, pulse ox 98% on room air. The patient was in no distress. Alert, oriented, appropriate, cooperative. Ambulatory in her room. There was a small formed stool in the bedside commode. LABORATORIES: Albumin 2.2. Calcium 6.5, creatinine 0.38. White count 4.5, hemoglobin 8.9, platelets 420. ASSESSMENT AND RECOMMENDATIONS: A 76-year-old female with ipilimumab induced colitis and associated perforation. This has been managed nonoperatively and she seems thus far to be responding to antibiotic therapy. I will convert her over to 30 mg prednisone daily starting tomorrow morning. If she continues to do well then hopefully she may be able to transition home with a course of oral antibiotics at the discretion of Dr. Pena, with plans for a 2nd dose of Remicade at the two week laura.
[2017-04-26 19:58] VITALS: BP 138/65; PULSE 97; RESP 18; O2SAT 95
[2017-04-27] VITALS (10 sets, daily range): BP systolic 120–156; BP diastolic 54–73; PULSE 77–93; RESP 16–18; O2SAT 94–97
[2017-04-27] MEDS: Piperacillin-Tazo 3.375 Gm Inj 3.375 GM in Dextrose 5% Minibag Plus 50 ML IV SCH ×3 (00:52→17:55)
[2017-04-27 06:12] LABS: BASOPHILS % (AUTO) 0.2 % (0-3); EOSINOPHILS % (AUTO) 0.4 % (0-5); MONOCYTES % (AUTO) 14.6 % (4-12); Mean Corpuscular Hemoglobin 27.6 pg (27.0-35.0); Mean Corpuscular Volume 82.1 fL (81-100); NEUTROPHILS % (AUTO) 56.1 % (40-74); Platelet Count 375 bil/L (150-400)
[2017-04-27 06:35] LABS: Magnesium 1.9 mg/dL (1.6-2.6)
[2017-04-27] MEDS ORDERED: Calcium Chl 10% (Gm) Inj 2 GM in Dextrose 5% 250 ML IV ONE (07:45)
[2017-04-27] MEDS ORDERED: Calcium GLUCO 10% (Gm) Inj 2 GM in 0.9% Sodium Chloride 100 ML IV ONE (08:02)
[2017-04-27] MEDS ORDERED: Potassium Chloride 20 mEq SR Tablet PO ONE (08:03)
[2017-04-27] MEDS: Pantoprazole 20 mg ER24 Tablet PO SCH ×2 (08:33→21:11)
[2017-04-27] MEDS: predniSONE 10 mg Tablet PO SCH (08:33)
[2017-04-27] MEDS: Lactobacillus Rhamnosus 10 Bil Unit Capsule PO SCH ×2 (08:33→17:56)
[2017-04-27] MEDS: Nystatin 100,000 Unit/mL 5 mL Suspension PO SCH ×4 (08:36→21:14)
[2017-04-27] MEDS: LORazepam 0.5 mg Tablet PO PRN ×2 (08:36→18:07)
--- NOTE | 2017-04-27 10:50 | PCM.PNSURG ---
Subjective Date of Service: Apr 27, 2017 Visit Information: Reason for Visit Adverse Medication Reaction, Diarrhea Surgery/Surgery Date Post-Op Day # Date of Admission: Apr 18, 2017 at 13:47 Hospital Day #9 Subjective: Several bowel movements yesterday 2 of which the patient reports as being slightly bloody, 1 bowel movement this morning. Eating small amounts of soft foods with no nausea or vomiting. Denies abdominal pain. Ambulatory in the hallway with assistance. Postop General: Other (as above) Gastrointestinal: Tolerating Oral Feedings, No N/V, Passing Stool Pain Management: No or Minimal Pain Postop Activity: Ambulate with Assist Objective Vital Sign- Last 8 Hours Date Time Temp Pulse Resp B/P Pulse Ox O2 Delivery O2 Flow Rate FiO2 04/27/17 04:51 36.5 85 18 120/54 96 Room Air Intake and Output- Last 8 Hour 04/27/17 Cumulative From/Thru 07:00 04/18/17 10:59 - 04/27/17 06:32 Intake Total 868 ml 47144 ml Output Total 1200 ml 94536 ml Balance -332 ml 70160 ml Intake Oral 450 ml 9286 ml IV Total 418 ml 93485 ml Output Urine Total 100 ml 62575 ml Urine/Stool Mix 1100 ml 2751 ml # Voids 9 # Bowel Movements 3 43 General: Alert, Cooperative, No Acute Distress Lungs: Clear to Auscultation Heart: Murmur (grade 2/6 systolic murmur.), Other (irregular) Abdomen: Soft, Non-tender, Distended (minimally distended), Tympanic Extremities: Edema Localized (both lower extremities are tender with 3+ edema) Neuro: Normal Speech Catheters: None Result Diagram: 04/27/1744104/27/17 0442 Assessment & Plan Impression Primary diagnoses: Free air in the setting of ipilimumab-induced colitis. Nonsurgical abdomen. Other chronic conditions: 1. Stage IIIC (Tx N1) malignant melanoma. 2. Right-sided stage I, node-negative breast cancer. The patient's letrozole was held on March 02, 2017, during her ipilimumab therapy. 3. Polymyalgia rheumatica. Managed with OTC naproxen, 1 pill per day.currently pain much better due to steroids 4. Left-sided multifocal DCIS. 5. Irritable bowel disease. More constipation than diarrhea 6. Osteopenia. Problems: Plan Surgery will sign off. Please call for questions or problems. Resuscitation Status: DNR/DNI:Do Not Resuscitate/Intubate Joe Pritchett PA-C Apr 27, 2017 10:50
--- NOTE | 2017-04-27 13:34 | NUR ---
NUTRITION FOLLOW UP: ASSESS: 76YO F admit with acute on chronic diarrhea now s/p sigmoidoscopy showing iatrogenic colitis, reaction to ipilimumab from Stg IV breast CA treatment. Diarrhea continues to slowly improve. She was able to have her diet advanced to General 04/26. She is tolerating her diet well at 50-100% of her meals, although she tends to eat smaller sized meals. PMHX: Breast CA s/p lumpectomy,radiation thx, recent dx Melanoma in February,IBS DIET: Gneral, PO 50-100% Pt reports intolerances (causes abdominal pain) with lactose,gluten,eggs,blueberries,coffee,sesame seeds,cranberry. 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 Prednisone GI: 3 BM 04/27 WEIGHT: 47kg BMI: 19.6; Wt in March-48kg, reported UBW of 50k.1kg wt loss x 1mos EST.NEEDS: WT GAIN (30-35kcal/kg;1.2-1.5g/kg IBW) Kcal: 7140-1575 Pro: 60-70g NUTRITION DIAGNOSIS: (1) Altered GI tract function related to lpilimumab medication per MD notes as evidenced by persistent diarrhea---IMPROVING. INTERVENTION: (1)Diet education/preferences obtained 04/19: Spoke with pt at length re multiple food intolerances. Reviewed high kcal/protein foods within pt dietary restrictions. (2) Continue current diet per pt provided preferences. MONITOR/EVALUATE: wt, PO intake, lab values, GI status. F/U per moderate risk.
--- NOTE | 2017-04-27 13:46 | PROG NOTE ---
[address] [address] PROGRESS NOTE PATIENT: SANDRA BATES : 1940 MR#: [id number] ADMIT: 04/18/2017 JOB ID: [id number] DATE: 04/27/2017 SUBJECTIVE: The patient continues to have some bloody stools. I rechecked a stool PCR this morning, and it was negative. C. diff was again negative. The patient is no longer complaining of any abdominal pain and is on general diet. She was converted over to prednisone 30 mg per day this morning. OBJECTIVE: Vital signs are stable. The patient is conversational but still somewhat dejected that she is not having a more rapid response. LABORATORY DATA: As above. Hemoglobin 8.0, white count 5.2, platelets 375. Calcium is still a bit low. Potassium low. Albumin 2.1. Otherwise unremarkable metabolic panel. ASSESSMENT AND RECOMMENDATIONS: This is a 76-year-old female with ipilimumab-induced colitis associated with a perforation. This has been successfully managed nonoperatively, and she remains on Zosyn. She is yet to have a sufficient response to her first dose of Remicade which was given last Sunday. The patient may need to be considered for blood transfusion. Hemoglobin is in the 8 range, and if continues to drop, then I would recommend she be considered for 1 or 2 units. I would recommend we continue the prednisone, and hopefully once she gains a little more response to the Remicade, can begin to truly taper. If she has not had a sufficient response by this coming Sunday, she will need a second dose of the Remicade. GI will continue to follow. I will sign the patient's care out to Dr. Vargas who will be covering the service over the weekend.
[2017-04-27] MEDS ORDERED: 0.9% Sodium Chloride 250 ML ONE ×2 (14:01→17:44)
--- NOTE | 2017-04-27 14:16 | PCM.PNMED ---
Subjective Date of Service Apr 27, 2017 Subjective pt reported increased bloody stools, noted trending down h/h As per , hydrocortisone switched to prednisone recommended transfusion surgery signed off. generally feeling better, mild abdominal pain, diet also advanced to general per surgery Exam Vital Signs Vital Sign - Last Date Time Temp Pulse Resp B/P Pulse Ox O2 Delivery O2 Flow Rate FiO2 04/27/17 04:51 36.5 85 18 120/54 96 Room Air Intake and Output 04/26/17 04/26/17 04/27/17 Cumulative From/Thru 15:00 23:00 07:00 04/18/17 10:59 - 04/27/17 06:32 Intake Total 2125 ml 600 ml 868 ml 50807 ml Output Total 700 ml 1200 ml 84505 ml Balance 2125 ml -100 ml -332 ml 47860 ml Intake Oral 600 ml 450 ml 9286 ml IV Total 2125 ml 418 ml 08592 ml Output Urine Total 700 ml 100 ml 80812 ml Urine/Stool Mix 1100 ml 2751 ml # Voids 9 # Bowel Movements 3 43 Exam cachectic elderly female, NAD, comfortably laying down on the bed no JVD, MMM, no LAD RRR, nl s1, s2 no mrg CTAB, no w,c S,mildly distended, less tender, active BS+ warm,2+pitting edema up to mid calf, warm, pulses2/2 IVs and Medications Medications Reviewed: Medications were reviewed in detail Lab and Diagnostics Result Diagram: 04/27/1744104/27/17441 Additional Diagnostics DATE OF PROCEDURE: 04/18/2017 PRIMARY PROVIDER: Kentrell Gan MD. PROCEDURE: Colonoscopy with biopsies. INDICATIONS: A 76-year-old female with severe diarrhea following the initiation of ipilimumab. She has only been partially responsive to steroids. EQUIPMENT: [facility]. SEDATION: 1. Versed 5 mg. 2. Fentanyl 100 mcg. COMPLICATIONS: None identified. BOWEL PREPARATION: Excellent with a single Fleet's. PROCEDURE INFORMATION: After the risks and benefits were explained, written and verbal informed consent was obtained. The patient was brought into the endoscopy suite and placed into the left lateral decubitus position. Sedation was achieved as above. A digital rectal examination accomplished. Mild internal hemorrhoids noted. The scope was then introduced into the rectum and advanced with great difficulty to about 35 cm from the anal verge in the sigmoid. The patient had a very tortuous bowel. It was inflamed and she demonstrated suboptimal tolerance with intermittent SVT into the high 140s, low 150s. She would respond with Valsalva. We did not make an effort to push beyond this depth in that we already had clear-cut evidence of proctocolitis. Biopsies were acquired. The scope was withdrawn. Patient tolerated the procedure reasonably well. The bowel was decompressed prior to removing the scope. FINDINGS: Mild proctitis characterized by exudate, erythema, loss of vascular pattern. There were punctate ulcerations. This became a little more intense just beyond the rectosigmoid through the sigmoid colon. We took a couple of biopsies from the sigmoid for histopathologic confirmation. As mentioned above, we did not attempt to navigate beyond 35 cm secondary to patient's heart rate intermittently spiking at 150 beats per minute.. ENDOSCOPIC DIAGNOSIS: Proctocolitis. RECOMMENDATIONS: 1. Await histopathology. 2. Continue IV hydrocortisone. 3. Hepatitis B serology and QuantiFERON Gold results are still pending. There was hyperinflation on the chest x-ray suggesting COPD but otherwise no acute cardiopulmonary abnormalities. Ideally, I would like to see these results returned prior to first dose of Remicade. Perhaps we could see how she responds clinically with the IV steroids over the next 24 hours and if she is not substantially better get the first dose on board while we await the results of some of the testing. Dane Flores MD 04/19/17 6925 Assessment & Plan Diane is a pleasant 76 yrs old lady with past medical history of breast cancer, melanoma, PMR, IBS came to emergency room due to worsening of diarrhea of 5 days. #pneumoperitoneum, developed 04/23-, likely due to microperforation, ddx: adverse effect from Ipilimumab vs iatrogenic with colonoscopy, bowel inflation with CO2 -pt seems to improve with non-surgical tx, diet advanced to general -serial abd exam. # Diarrhea, acute on chronic,poa, Due to Ipilimumab.Patient had recent similar hospitalization and failed prednisone treatment. stool pcr negative, initial LA 2.5., -s/p sigmoidoscopy 04/19 which shows Proctocolitis.Initially started on Hydrocortisone 100mg iv q8h then prednisone 40 mg daily for 2days, stopped 04/24 given pneumoperitoneum, persistent diarrhea, Last Remicade given on 04/20 per GI and tolerated well. -s/p hydrocortisone to prednisone per GI -IVF was on and off, stopped IVF today given LE edema -quantiferon gold TB pending.hep sAg negative HBsAb positive,HBCAb positive. Immunity possibly from recent infection. -loperamide prn -GI Dr Flores consulted, appreciate follow up LE edema, likely due to IVF, respiratory status stable s/p lasix 20mg iv 04/26, resolved, -consider another dosing on daily basis #Episodes of SVTs on 04/19 -Probably due to electrolyte disturbance -Hypokalemia repleted -12 lead ekg unremarkable #Anemia, Due to bloody diarrhea, -h/h further dropping, transfuse target hgb>8, [id number] today # Hyponatremia, improving -Due to hypovolemia # Bandemia , resolved -Bandemia of 10% of noted. Afebrile. No leukocytosis. Pro calcitonin negative. Initial stool PCR negative. No evidence of infection as well. -CBC daily # Recently diagnosed melanoma -1st cycle of immunotherapy given a month ago. Treatment remains on hold due to side effect # PMR -Pain much better now due to steroids per patient #History of breast cancer -letrozole discontinued a month ago for unclear reason -Dr Nolan following dvt ppx Lovenox,ppi given steroid DNR/DNI ,patient interested to fill in POLST,will fill in POLST Disposition: likely 2-3more days d/c when diarrhea resolved VTE Mechanical Devices: Intermittant Pneumatic CD Resuscitation Status: DNR/DNI:Do Not Resuscitate/Intubate Time spent 35min [place] He MD Apr 27, 2017 14:16
--- NOTE | 2017-04-27 19:34 | NUR ---
GI/Blood Pt continuing to have watery stools with small amt of blood, PCR sent. Pt getting up to BSC independently. Pt is currently transfusing second unit of PRBC's that started at 1821. VSS, no s/s of transfusion reaction and is tolerating well. Pt having no pain, but is using Ativan q8 as needed. Bed in low, call light in reach, continue to monitor.
[2017-04-28] MEDS: Piperacillin-Tazo 3.375 Gm Inj 3.375 GM in Dextrose 5% Minibag Plus 50 ML IV SCH (00:45)
[2017-04-28] MEDS: LORazepam 0.5 mg Tablet PO PRN ×3 (04:09→23:19)
[2017-04-28 05:58] LABS: BASOPHILS % (AUTO) 0.1 % (0-3); EOSINOPHILS % (AUTO) 1.9 % (0-5); MONOCYTES % (AUTO) 14.1 % (4-12); Mean Corpuscular Hemoglobin 27.3 pg (27.0-35.0); Mean Corpuscular Volume 80.1 fL (81-100); NEUTROPHILS % (AUTO) 48.3 % (40-74); Platelet Count 372 bil/L (150-400)
--- NOTE | 2017-04-28 06:19 | NUR ---
GI Reports minimal abdominal discomfort overnight. Tiny BM but no signs of blood this shift. post transfusion H/H 11.1 and 32.6 VSS.
[2017-04-28 06:22] LABS: Magnesium 1.8 mg/dL (1.6-2.6)
[2017-04-28] MEDS ORDERED: Potassium Chloride 20 mEq SR Tablet PO ONE (07:25)
[2017-04-28] MEDS ORDERED: Furosemide 10 mg/mL 2 mL Inj IVPUSH SCH (08:10)
[2017-04-28] MEDS ORDERED: Magnesium Sulf 2 Gm/50mL Water 2 GM in IV Premix 1 EACH IV ONE (08:15)
--- NOTE | 2017-04-28 09:11 | PROG NOTE ---
[address] [address] PROGRESS NOTE PATIENT: SANDRA BATES : 1940 MR#: [id number] ADMIT: 04/18/2017 JOB ID: [id number] DATE: 04/28/2017 SUBJECTIVE: The patient is a very pleasant 76-year-old female with an underlying diagnosis of stage III malignant melanoma. The patient has received one dose of ipilimumab in the adjuvant setting on March 12, 2017. The patient has subsequently developed ipilimumab-induced colitis presenting with grade 3 diarrhea progressing through front-line prednisone. Recently treated with Remicade on April 20, 2017. The patient's hospital stay has been complicated by perforation after sigmoidoscopy on April 20, 2017. Clinically, the patient continues to show week by week improvement. Specifically over the past 24 hours, she has had three small loose stools, not watery. In addition, the episode of bloody stool that occurred two days ago has resolved. The patient has been allowed to advance her diet to p.o. with solids which she is tolerating well. After she eats, she is not aware of any abdominal pain or diarrhea immediately afterwards. Clinically, she continues to have some generalized abdominal cramping, which is well controlled with her lorazepam, which works best for her. She is not aware of any fevers or chills, headaches, or visual changes. PAST MEDICAL HISTORY: Significant for: 1. Immune-related adverse effect from ipilimumab causing secondary colitis presenting with grade 3 diarrhea. The patient progressed through first-line IV prednisone, started second-line Remicade 5 mg/kg cycle one on April 20, 2017. 2. Malignant melanoma, stage III, status post one dose of the ipilimumab in the adjuvant setting. Last administered on March 12, 2017. 3. Pneumoperitoneum identified on CT scan of the abdomen dated April 23, 2017. Reporting a small amount of air within the upper abdomen. Surgery is involved at this time. However, she has been managed medically. 4. Polymyalgia rheumatica. PHYSICAL EXAMINATION: Vital signs today reporting a blood pressure 156/69, temperature 36, pulse is 84, respiratory rate 16. She is A and O x3. In good spirits overall. Sitting in bed. Affect appropriate. She does not appear septic. Mucous membranes are moist. No ulceration, no plaque formation to suggest thrush. Abdomen was slightly distended but nontender which is a dramatic improvement. Hypoactive bowel sounds appreciated. Lower extremities with 1+ edema. Cranial nerves grossly intact. LABORATORY DATA: From April 20, 2017, reporting a white cell count of 6.9, hemoglobin 11.1 and a platelet count of 372. Sodium 135, potassium 3.3, serum creatinine 0.34. AST 20, ALT 13, alk phos 104. Albumin improving to 2.4. ASSESSMENT AND PLAN: The patient is a very pleasant 76-year-old female with ipilimumab-induced colitis presenting with grade 3 diarrhea. The patient is status post day eight of second-line therapy with Remicade showing a clinical improvement with decreased diarrhea and abdominal cramping. In addition, she has advanced her diet to solid food. Her clinical improvement is consistent with a response to Remicade. Anticipate an approximate 60% chance of responding within the first two weeks of her first dose of Remicade. To improve her chances of having a complete response and resolution of her colitis, as well as minimize treatment failure, she will need her second cycle of Remicade, which is scheduled for May 04, 2017. Can be done either inpatient or as outpatient at the [facility]. In regards to the patient's bowel perforation documented on April 20, 2017, she continues to respond well to conservative medical management without indication for surgery at this time. Finally, in regards to discharge, the patient needs to be placed on prophylactic acyclovir 400 mg b.i.d. and nystatin swish, gargle and spit, as well as Bactrim double strength Sunday, Sunday and Sunday, given her immunosuppression with over five weeks of prednisone and now Remicade. The patient should remain on prednisone 30 mg daily without any further tapering over the next two weeks. I will continue to follow the patient and plan on seeing her this coming Sunday. Otherwise, please call me for any questions or concerns. My cell phone number is [phone].
--- NOTE | 2017-04-28 09:46 | PCM.PNMED ---
Subjective Date of Service Apr 28, 2017 Subjective pt feels better, had more formed stools no blood tolerated general diet, tolerated 2untis blood well, h/h appropriately elevated noted more edema on LE repeat stool PCR negative Exam Vital Signs Vital Sign - Last Date Time Temp Pulse Resp B/P Pulse Ox O2 Delivery O2 Flow Rate FiO2 04/27/17 22:29 36.7 84 16 156/69 04/27/17 20:25 96 Room Air Intake and Output 04/27/17 04/27/17 04/28/17 Cumulative From/Thru 15:00 23:00 07:00 04/18/17 10:59 - 04/28/17 06:12 Intake Total 1234 ml 60 ml 71849 ml Output Total 700 ml 49425 ml Balance 534 ml 60 ml 94757 ml Intake Oral 520 ml 9806 ml IV Total 64 ml 60 ml 36893 ml Packed Cells 650 ml 650 ml Output Urine Total 85997 ml Urine/Stool Mix 700 ml 3451 ml # Voids 9 # Bowel Movements 3 46 Exam cachectic elderly female, NAD, comfortably laying down on the bed no JVD, MMM, no LAD RRR, nl s1, s2 no mrg CTAB, no w,c S,mildly distended, less tender, active BS+ warm,1+pitting/nonpitting edema up to mid calf, warm, pulses2/2 IVs and Medications Medications Reviewed: Medications were reviewed in detail Lab and Diagnostics Result Diagram: 04/28/1743904/28/17439 Additional Diagnostics DATE OF PROCEDURE: 04/18/2017 PRIMARY PROVIDER: Kentrell Gan MD. PROCEDURE: Colonoscopy with biopsies. INDICATIONS: A 76-year-old female with severe diarrhea following the initiation of ipilimumab. She has only been partially responsive to steroids. EQUIPMENT: [facility]. SEDATION: 1. Versed 5 mg. 2. Fentanyl 100 mcg. COMPLICATIONS: None identified. BOWEL PREPARATION: Excellent with a single Fleet's. PROCEDURE INFORMATION: After the risks and benefits were explained, written and verbal informed consent was obtained. The patient was brought into the endoscopy suite and placed into the left lateral decubitus position. Sedation was achieved as above. A digital rectal examination accomplished. Mild internal hemorrhoids noted. The scope was then introduced into the rectum and advanced with great difficulty to about 35 cm from the anal verge in the sigmoid. The patient had a very tortuous bowel. It was inflamed and she demonstrated suboptimal tolerance with intermittent SVT into the high 140s, low 150s. She would respond with Valsalva. We did not make an effort to push beyond this depth in that we already had clear-cut evidence of proctocolitis. Biopsies were acquired. The scope was withdrawn. Patient tolerated the procedure reasonably well. The bowel was decompressed prior to removing the scope. FINDINGS: Mild proctitis characterized by exudate, erythema, loss of vascular pattern. There were punctate ulcerations. This became a little more intense just beyond the rectosigmoid through the sigmoid colon. We took a couple of biopsies from the sigmoid for histopathologic confirmation. As mentioned above, we did not attempt to navigate beyond 35 cm secondary to patient's heart rate intermittently spiking at 150 beats per minute.. ENDOSCOPIC DIAGNOSIS: Proctocolitis. RECOMMENDATIONS: 1. Await histopathology. 2. Continue IV hydrocortisone. 3. Hepatitis B serology and QuantiFERON Gold results are still pending. There was hyperinflation on the chest x-ray suggesting COPD but otherwise no acute cardiopulmonary abnormalities. Ideally, I would like to see these results returned prior to first dose of Remicade. Perhaps we could see how she responds clinically with the IV steroids over the next 24 hours and if she is not substantially better get the first dose on board while we await the results of some of the testing. Dane Flores MD 04/19/17 1515 Assessment & Plan Diane is a pleasant 76 yrs old lady with past medical history of breast cancer, melanoma, PMR, IBS came to emergency room due to worsening of diarrhea of 5 days. #pneumoperitoneum, developed 04/23-, likely due to microperforation, ddx: adverse effect from Ipilimumab vs iatrogenic with colonoscopy, bowel inflation with CO2 -pt seems to improve with non-surgical tx, diet advanced to general, tolerating well -serial abd exam. # Diarrhea, acute on chronic,poa, Due to Ipilimumab.Patient had recent similar hospitalization and failed prednisone treatment. stool pcr negative, initial LA 2.5., -s/p sigmoidoscopy 04/19 which shows Proctocolitis.Initially started on Hydrocortisone 100mg iv q8h then prednisone 40 mg daily for 2days, stopped 04/24 given pneumoperitoneum, persistent diarrhea, Last Remicade given on 04/20 per GI and tolerated well. -s/p hydrocortisone to prednisone per GI -IVF was on and off, stopped IVF due to LE edema -quantiferon gold TB pending.hep sAg negative HBsAb positive,HBCAb positive. Immunity possibly from recent infection. -loperamide prn -GI Dr Flores consulted, appreciate follow up LE edema, likely due to IVF and/or malnutrition, respiratory status stable s/p lasix 20mg iv 04/26, -after transfusion, pt seemed more overloaded, will start 20mg iv bid today, monitor on daily basis #protein caloric malnutrition, POA, due to poor oral intake given GI condition -PO supplement, phos replacement, replete K,Mg #Episodes of SVTs on 04/19 -Probably due to electrolyte disturbance -Hypokalemia repleted -12 lead ekg unremarkable #Anemia, Due to bloody diarrhea, -h/h further dropping, transfuse target hgb>8, [id number] today # Hyponatremia, improving -Due to hypovolemia # Bandemia , resolved -Bandemia of 10% of noted. Afebrile. No leukocytosis. Pro calcitonin negative. Initial stool PCR negative. No evidence of infection as well. -CBC daily # Recently diagnosed melanoma -1st cycle of immunotherapy given a month ago. Treatment remains on hold due to side effect # PMR -Pain much better now due to steroids per patient #History of breast cancer -letrozole discontinued a month ago for unclear reason -Dr Nolan following dvt ppx Lovenox,ppi given steroid DNR/DNI ,patient interested to fill in POLST,will fill in POLST Disposition: likely Sunday as pt's condition is improving VTE Mechanical Devices: Intermittant Pneumatic CD Resuscitation Status: DNR/DNI:Do Not Resuscitate/Intubate Time spent 65min [place] He MD Apr 28, 2017 09:46
[2017-04-28] MEDS: predniSONE 10 mg Tablet PO SCH (10:36)
[2017-04-28] MEDS: Pantoprazole 20 mg ER24 Tablet PO SCH ×2 (10:36→21:12)
[2017-04-28] MEDS: Lactobacillus Rhamnosus 10 Bil Unit Capsule PO SCH ×2 (10:36→18:45)
[2017-04-28] MEDS: Sodium-Potassium Phosphorus Packet TUBE SCH ×4 (10:37→21:12)
[2017-04-28] MEDS: Nystatin 100,000 Unit/mL 5 mL Suspension PO SCH ×4 (10:37→21:12)
[2017-04-28 13:08] VITALS: BP 164/81; PULSE 86; RESP 19; O2SAT 98
--- NOTE | 2017-04-28 15:46 | NUR ---
Social Work: Continued Discharge Planning D: EMR reviewed. Pt is on day 9 of hospitalization. Pt's spouse Jv Pettit requested to speak with SW regarding discharge plan. SW met with pt's spouse and he expressed concern for pt returning home with HH. Pt's spouse stated that pt is weak and he is not able to care for her. SW confirmed that pt and family have funds for private caregiving and spouse confirmed he has been working to schedule a caregiver through [employer]. Pt's spouse stated he thinks pt needs more care that an setter cold rolling machine and asked about the possiblility for pt to go to SNF. SW explained that MD would have to determine that SNF is medically necessary and confirmed SW would follow-up with MD to assess pt's current status and potential need for SNF. SW and spouse agreed that SW would follow-up with spouse 04/29 after talking with MD about SNF. SW spoke with MD regarding SNF. MD stated he would review pt's status and determine if SNF is medically necessary. MD will follow-up with SW with decision. SW to follow-up with MD no later than 04/29 to determine discharge plan. A: Pt for whom HH RN has been deemed medically necessary. P: SW to follow-up with MD regarding SNF v. HH need. SW to update pt and spouse once MD has determined pt's needs at discharge. RASHAD Aponte
--- NOTE | 2017-04-28 18:23 | NUR ---
GI Pt had increasing BM's this afternoon of loose watery diarrhea with some small blood clots. No increase in abd pain, which is mild in LLQ. paged. Pt able to get up independently to BSC. Multiple medications given today for pts electrolyte imbalance. Pt able to have shower and tolerated well. Bed in low, call light in reach, continue to monitor.
[2017-04-28 20:50] VITALS: BP 131/77; PULSE 83; RESP 16; O2SAT 96
--- NOTE | 2017-04-29 02:00 | NUR ---
GI; up to bsc to have a bm x1 so far this shift, loose brown color without blood noted. PSYCH; ativan requested and given for sleep with effectiveness.
[2017-04-29 05:20] VITALS: BP 145/71; PULSE 78; RESP 16; O2SAT 97
[2017-04-29 08:00] LABS: BASOPHILS % (AUTO) 0.1 % (0-3); EOSINOPHILS % (AUTO) 1.4 % (0-5); MONOCYTES % (AUTO) 14.2 % (4-12); Mean Corpuscular Hemoglobin 26.9 pg (27.0-35.0); Mean Corpuscular Volume 80.6 fL (81-100); NEUTROPHILS % (AUTO) 62.4 % (40-74); Platelet Count 412 bil/L (150-400)
[2017-04-29 08:21] LABS: Magnesium 1.9 mg/dL (1.6-2.6); Phosphorus 3.7 mg/dL (2.5-4.9)
--- NOTE | 2017-04-29 09:01 | NUR ---
ADEEL signed by pt at bedside
--- NOTE | 2017-04-29 09:10 | PCM.PNMED ---
Subjective Date of Service Apr 29, 2017 Subjective pt had multiple loose stools but more formed than prior day, denied n/v, appetite is better. denied black or bloody stools. zosyn was stopped but remained afebrile tolerated soy milk PO booster and phos repletion Exam Vital Signs Vital Sign - Last Date Time Temp Pulse Resp B/P Pulse Ox O2 Delivery O2 Flow Rate FiO2 04/29/17 05:20 36.7 78 16 145/71 97 Room Air Intake and Output 04/28/17 04/28/17 04/29/17 Cumulative From/Thru 15:00 23:00 07:00 04/18/17 10:59 - 04/29/17 06:40 Intake Total 350 ml 686 ml 300 ml 49932 ml Output Total 1500 ml 1150 ml 1740 ml 36893 ml Balance -1150 ml -464 ml -1440 ml 8689 ml Intake Oral 350 ml 686 ml 300 ml 16800 ml IV Total 70265 ml Packed Cells 650 ml Output Urine Total 1500 ml 1150 ml 1740 ml 87161 ml Urine/Stool Mix 3451 ml # Voids 9 # Bowel Movements 1 2 3 52 Exam cachectic elderly female, NAD, comfortably laying down on the bed no JVD, MMM, no LAD RRR, nl s1, s2 no mrg CTAB, no w,c S,mildly distended, less tender, active BS+ warm,1+pitting/nonpitting edema up to mid calf, warm, pulses2/2 IVs and Medications Medications Reviewed: Medications were reviewed in detail Lab and Diagnostics Result Diagram: 04/29/17 0745 04/29/17 0745 Additional Diagnostics DATE OF PROCEDURE: 04/18/2017 PRIMARY PROVIDER: Kentrell Gan MD. PROCEDURE: Colonoscopy with biopsies. INDICATIONS: A 76-year-old female with severe diarrhea following the initiation of ipilimumab. She has only been partially responsive to steroids. EQUIPMENT: [facility]-80[facility]. SEDATION: 1. Versed 5 mg. 2. Fentanyl 100 mcg. COMPLICATIONS: None identified. BOWEL PREPARATION: Excellent with a single Fleet's. PROCEDURE INFORMATION: After the risks and benefits were explained, written and verbal informed consent was obtained. The patient was brought into the endoscopy suite and placed into the left lateral decubitus position. Sedation was achieved as above. A digital rectal examination accomplished. Mild internal hemorrhoids noted. The scope was then introduced into the rectum and advanced with great difficulty to about 35 cm from the anal verge in the sigmoid. The patient had a very tortuous bowel. It was inflamed and she demonstrated suboptimal tolerance with intermittent SVT into the high 140s, low 150s. She would respond with Valsalva. We did not make an effort to push beyond this depth in that we already had clear-cut evidence of proctocolitis. Biopsies were acquired. The scope was withdrawn. Patient tolerated the procedure reasonably well. The bowel was decompressed prior to removing the scope. FINDINGS: Mild proctitis characterized by exudate, erythema, loss of vascular pattern. There were punctate ulcerations. This became a little more intense just beyond the rectosigmoid through the sigmoid colon. We took a couple of biopsies from the sigmoid for histopathologic confirmation. As mentioned above, we did not attempt to navigate beyond 35 cm secondary to patient's heart rate intermittently spiking at 150 beats per minute.. ENDOSCOPIC DIAGNOSIS: Proctocolitis. RECOMMENDATIONS: 1. Await histopathology. 2. Continue IV hydrocortisone. 3. Hepatitis B serology and QuantiFERON Gold results are still pending. There was hyperinflation on the chest x-ray suggesting COPD but otherwise no acute cardiopulmonary abnormalities. Ideally, I would like to see these results returned prior to first dose of Remicade. Perhaps we could see how she responds clinically with the IV steroids over the next 24 hours and if she is not substantially better get the first dose on board while we await the results of some of the testing. Dane Flores MD 04/19/17 4735 Assessment & Plan Diane is a pleasant 76 yrs old lady with past medical history of breast cancer, melanoma, PMR, IBS came to emergency room due to worsening of diarrhea of 5 days. acute, active # Diarrhea, acute on chronic,poa, Due to Ipilimumab adverse effect.Patient had recent similar hospitalization and failed prednisone treatment. stool pcr negative, initial LA 2.5., -s/p sigmoidoscopy 04/19 which shows Proctocolitis.Initially started on Hydrocortisone 100mg iv q8h then prednisone 40 mg daily, course was complicated due to on 04/24 as pt was found to have pneumoperitoneum after colonoscopy. Last Remicade given on 04/20 per GI and tolerated well. -Clinically stable or improving although still has loose stools, -s/p hydrocortisone to prednisone per GI -IVF was on and off, stopped IVF due to LE edema -GI Dr Flores consulted, appreciate follow up -consider d/c pt if po intake is adequate and diarrhea is controlled. -probiotics, pt to bring her own fiber from today. #LE edema, likely due to IVF and/or malnutrition, respiratory status stable s/p lasix 20mg iv 04/26, after transfusion, pt seemed more overloaded, started 20mg iv bid -Creatinine increaesd>0.2 with diuresis, i/o maintained net >1liters for 2days, -stopped diuretics today, monitor vol status on daily basis, consider redosing, pt unlikely needs standing diuretics on d/c #protein caloric malnutrition, moderate, POA, due to poor oral intake given GI condition -PO supplement, phos replacement, replete K,Mg # Hyponatremia, initially due to hypovolemia, worsened today with diuresis, ongoing GI fluid loss -monitor for now, diuretics were held chronic, stable, resolved #pneumoperitoneum, developed 04/23-, likely due to microperforation, ddx: adverse effect from Ipilimumab vs iatrogenic with colonoscopy, bowel inflation with CO2 -pt is stable with non-surgical tx, diet advanced to general, tolerating well, surgery signed off #Episodes of SVTs on 04/19, Probably due to electrolyte disturbance, Hypokalemia repleted, 12 lead ekg unremarkable, stable since then #acute blood loss anemia, Due to bloody diarrhea, s/p 04/27 2units of pRBC, stable # Bandemia , resolved -Bandemia of 10% of noted. Afebrile. No leukocytosis. Pro calcitonin negative. Initial stool PCR negative. No evidence of infection as well. -CBC daily # Recently diagnosed melanoma, 1st cycle of immunotherapy given a month ago. Treatment remains on hold due to side effect # PMR, Pain much better now due to steroids per patient #History of breast cancer, letrozole discontinued a month ago for unclear reason , Dr Nolan following dvt ppx Lovenox,ppi given steroid DNR/DNI ,patient interested to fill in POLST,will fill in POLST Disposition: likely 1-2more days home VTE Mechanical Devices: Intermittant Pneumatic CD Resuscitation Status: DNR/DNI:Do Not Resuscitate/Intubate Time spent 35min [place]ano He MD Apr 29, 2017 09:10
[2017-04-29] MEDS: Lactobacillus Rhamnosus 10 Bil Unit Capsule PO SCH ×2 (09:40→18:44)
[2017-04-29] MEDS: predniSONE 10 mg Tablet PO SCH (09:40)
[2017-04-29] MEDS: Sodium-Potassium Phosphorus Packet TUBE SCH ×4 (09:40→21:50)
[2017-04-29] MEDS: Nystatin 100,000 Unit/mL 5 mL Suspension PO SCH ×4 (09:42→21:50)
[2017-04-29] MEDS: Pantoprazole 20 mg ER24 Tablet PO SCH ×2 (09:42→21:50)
[2017-04-29] MEDS: LORazepam 0.5 mg Tablet PO PRN ×2 (09:49→22:04)
[2017-04-29 12:44] VITALS: BP 124/72; PULSE 95; RESP 18; O2SAT 95
--- NOTE | 2017-04-29 14:56 | NUR ---
GI pt continues to have loose stools, brown but streaks of octaviano blood, pt denies pain except for small amt of cramping prior to having diarrhea, denies nausea
[2017-04-29 21:58] VITALS: BP 151/95; PULSE 72; RESP 18; O2SAT 98
--- NOTE | 2017-04-30 01:05 | NUR ---
GI; no blood seen in stool so far this shift.
[2017-04-30 05:48] LABS: BASOPHILS % (AUTO) 0.1 % (0-3); EOSINOPHILS % (AUTO) 2.4 % (0-5); MONOCYTES % (AUTO) 15.5 % (4-12); Mean Corpuscular Hemoglobin 27.2 pg (27.0-35.0); Mean Corpuscular Volume 81.5 fL (81-100); NEUTROPHILS % (AUTO) 59.9 % (40-74); Platelet Count 386 bil/L (150-400)
[2017-04-30 06:15] VITALS: BP 154/84; PULSE 80; RESP 16; O2SAT 100
[2017-04-30 06:15] LABS: Phosphorus 2.1 mg/dL (2.5-4.9)
--- NOTE | 2017-04-30 06:26 | NUR ---
GI; moderate amount of soft stool with tinge of blood noted.
--- NOTE | 2017-04-30 07:13 | NUR ---
Stool Dickson blood in stool this morning. Complaints of cramping but states it gets better when she goes. Denies N/V. Says feels unsteady on feet every once in a while but it is getting better.
[2017-04-30] MEDS: Lactobacillus Rhamnosus 10 Bil Unit Capsule PO SCH ×2 (09:12→18:05)
[2017-04-30] MEDS: Sodium-Potassium Phosphorus Packet TUBE SCH ×4 (09:12→22:43)
[2017-04-30] MEDS: Nystatin 100,000 Unit/mL 5 mL Suspension PO SCH ×4 (09:13→22:43)
[2017-04-30] MEDS: Pantoprazole 20 mg ER24 Tablet PO SCH ×2 (09:13→20:44)
[2017-04-30] MEDS: predniSONE 10 mg Tablet PO SCH (09:13)
[2017-04-30 13:00] VITALS: BP 152/78; PULSE 80; RESP 18; O2SAT 98
[2017-04-30] MEDS: LORazepam 0.5 mg Tablet PO PRN ×2 (13:08→22:43)
--- NOTE | 2017-04-30 15:33 | PCM.PNMED ---
Subjective Date of Service Apr 30, 2017 Subjective Bloody diarrhea has resumed. No chest pain, no dyspnea, no nausea or vomiting. Exam Vital Signs Vital Sign - Last Date Time Temp Pulse Resp B/P Pulse Ox O2 Delivery O2 Flow Rate FiO2 04/30/17 13:00 36.7 80 18 152/78 98 Room Air Intake and Output 04/29/17 04/29/17 04/30/17 Cumulative From/Thru 15:00 23:00 07:00 04/18/17 10:59 - 04/30/17 06:58 Intake Total 650 ml 300 ml 24727 ml Output Total 700 ml 1840 ml 21555 ml Balance -50 ml -1540 ml 7099 ml Intake Oral 650 ml 300 ml 93881 ml IV Total 82580 ml Packed Cells 650 ml Output Urine Total 700 ml 1840 ml 48345 ml Urine/Stool Mix 3451 ml # Voids 9 # Bowel Movements 1 4 57 Exam Gen.- A+ O 3 no apparent distress. Thin female sitting up in chair Eyes- open conjunctiva clear, pupils equal nonicteric Mouth-lips normal ENT- ears normal, nose normal Neck- supple/trach midline CVS-normal rate Lungs-normal rate GI-flat Musc- moving 4 no obvious deformity Neuro- cranial nerves II through XII intact to gross examination, nonfocal Skin- warm and dry, no rashes/lesions/wounds noted Psych- pleasant and appropriate, Lab and Diagnostics Result Diagram: 04/30/17 0500 04/30/17 0500 Additional Diagnostics DATE OF PROCEDURE: 04/18/2017 PRIMARY PROVIDER: Kentrell Gan MD. PROCEDURE: Colonoscopy with biopsies. INDICATIONS: A 76-year-old female with severe diarrhea following the initiation of ipilimumab. She has only been partially responsive to steroids. EQUIPMENT: [facility]-H180AL. SEDATION: 1. Versed 5 mg. 2. Fentanyl 100 mcg. COMPLICATIONS: None identified. BOWEL PREPARATION: Excellent with a single Fleet's. PROCEDURE INFORMATION: After the risks and benefits were explained, written and verbal informed consent was obtained. The patient was brought into the endoscopy suite and placed into the left lateral decubitus position. Sedation was achieved as above. A digital rectal examination accomplished. Mild internal hemorrhoids noted. The scope was then introduced into the rectum and advanced with great difficulty to about 35 cm from the anal verge in the sigmoid. The patient had a very tortuous bowel. It was inflamed and she demonstrated suboptimal tolerance with intermittent SVT into the high 140s, low 150s. She would respond with Valsalva. We did not make an effort to push beyond this depth in that we already had clear-cut evidence of proctocolitis. Biopsies were acquired. The scope was withdrawn. Patient tolerated the procedure reasonably well. The bowel was decompressed prior to removing the scope. FINDINGS: Mild proctitis characterized by exudate, erythema, loss of vascular pattern. There were punctate ulcerations. This became a little more intense just beyond the rectosigmoid through the sigmoid colon. We took a couple of biopsies from the sigmoid for histopathologic confirmation. As mentioned above, we did not attempt to navigate beyond 35 cm secondary to patient's heart rate intermittently spiking at 150 beats per minute.. ENDOSCOPIC DIAGNOSIS: Proctocolitis. RECOMMENDATIONS: 1. Await histopathology. 2. Continue IV hydrocortisone. 3. Hepatitis B serology and QuantiFERON Gold results are still pending. There was hyperinflation on the chest x-ray suggesting COPD but otherwise no acute cardiopulmonary abnormalities. Ideally, I would like to see these results returned prior to first dose of Remicade. Perhaps we could see how she responds clinically with the IV steroids over the next 24 hours and if she is not substantially better get the first dose on board while we await the results of some of the testing. 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 # Diarrhea, acute on chronic,poa, Due to Ipilimumab adverse effect, failed prednisone outpt . stool pcr negative, -s/p sigmoidoscopy 04/19 which shows Proctocolitis.Initially started on Hydrocortisone 100mg iv q8h then prednisone 40 mg daily, -pneumoperitoneum 04/24 s/p colonoscopy. surgery signed off 04/30 -Remicade 04/20 per GI, Dr Flores following -pt on her own probiotics/fiber #LE edema, likely due to IVF and/or malnutrition, #protein caloric malnutrition, moderate, POA, due to poor oral intake given GI condition -PO supplement, phos replacement, replete K,Mg #Episodes of SVTs on 04/19, Probably due to electrolyte disturbance, Hypokalemia repleted, 12 lead ekg unremarkable, stable since then #acute blood loss anemia, Due to bloody diarrhea, s/p 04/27 2units of pRBC, stable # Recently diagnosed melanoma, 1st cycle of immunotherapy given a month ago. Treatment remains on hold due to side effect # PMR, Pain much better now due to steroids per patient #History of breast cancer, letrozole discontinued a month ago for unclear reason , Dr Nolan following dvt ppx Lovenox,ppi given steroid DNR/DNI ,patient interested to fill in POLST,will fill in POLST Medically complex patient at high risk for complications VTE Mechanical Devices: Intermittant Pneumatic CD Resuscitation Status: DNR/DNI:Do Not Resuscitate/Intubate Jonathan Vazquez MD Apr 30, 2017 15:33
--- NOTE | 2017-04-30 16:05 | NUR ---
Social Work: Continued Discharge Planning D: EMR reviewed. Pt is on day 12 of hospitalization. Pt is requesting private caregiver quotes. Pt to discharge home with [facility] for RN x3/week. SW provided pt with information on [facility]. SW to update Belinda from [facility] when pt is ready to discharge. A: Pt for whom RN 3x/week has been deemed medically necessary. P: Pt to return home via POV with [facility] RN 3x/week and private caregiver. SW to follow-up with pt regarding private caregiver quotes for Amina Rao. RASHAD Aponte
--- NOTE | 2017-04-30 17:22 | PCM.PNMED ---
Subjective Date of Service Apr 30, 2017 Subjective patient reports rectal bleeding last night that was mainly blood today however she reports semi solid brown stool mixed with blood mild abdominal cramping, no nausea or vomiting Exam Vital Signs Vital Sign - Last Date Time Temp Pulse Resp B/P Pulse Ox O2 Delivery O2 Flow Rate FiO2 04/30/17 13:00 36.7 80 18 152/78 98 Room Air Intake and Output 04/29/17 04/29/17 04/30/17 Cumulative From/Thru 15:00 23:00 07:00 04/18/17 10:59 - 04/30/17 06:58 Intake Total 650 ml 300 ml 87548 ml Output Total 700 ml 1840 ml 74677 ml Balance -50 ml -1540 ml 7099 ml Intake Oral 650 ml 300 ml 10416 ml IV Total 11685 ml Packed Cells 650 ml Output Urine Total 700 ml 1840 ml 85984 ml Urine/Stool Mix 3451 ml # Voids 9 # Bowel Movements 1 4 57 Exam GEN - oriented and in no distress abd-soft , non temder Lab and Diagnostics Result Diagram: 04/30/17 0500 04/30/17 0500 Additional Diagnostics DATE OF PROCEDURE: 04/18/2017 PRIMARY PROVIDER: Kentrell Gan MD. PROCEDURE: Colonoscopy with biopsies. INDICATIONS: A 76-year-old female with severe diarrhea following the initiation of ipilimumab. She has only been partially responsive to steroids. EQUIPMENT: [facility]-H180MA. SEDATION: 1. Versed 5 mg. 2. Fentanyl 100 mcg. COMPLICATIONS: None identified. BOWEL PREPARATION: Excellent with a single Fleet's. PROCEDURE INFORMATION: After the risks and benefits were explained, written and verbal informed consent was obtained. The patient was brought into the endoscopy suite and placed into the left lateral decubitus position. Sedation was achieved as above. A digital rectal examination accomplished. Mild internal hemorrhoids noted. The scope was then introduced into the rectum and advanced with great difficulty to about 35 cm from the anal verge in the sigmoid. The patient had a very tortuous bowel. It was inflamed and she demonstrated suboptimal tolerance with intermittent SVT into the high 140s, low 150s. She would respond with Valsalva. We did not make an effort to push beyond this depth in that we already had clear-cut evidence of proctocolitis. Biopsies were acquired. The scope was withdrawn. Patient tolerated the procedure reasonably well. The bowel was decompressed prior to removing the scope. FINDINGS: Mild proctitis characterized by exudate, erythema, loss of vascular pattern. There were punctate ulcerations. This became a little more intense just beyond the rectosigmoid through the sigmoid colon. We took a couple of biopsies from the sigmoid for histopathologic confirmation. As mentioned above, we did not attempt to navigate beyond 35 cm secondary to patient's heart rate intermittently spiking at 150 beats per minute.. ENDOSCOPIC DIAGNOSIS: Proctocolitis. RECOMMENDATIONS: 1. Await histopathology. 2. Continue IV hydrocortisone. 3. Hepatitis B serology and QuantiFERON Gold results are still pending. There was hyperinflation on the chest x-ray suggesting COPD but otherwise no acute cardiopulmonary abnormalities. Ideally, I would like to see these results returned prior to first dose of Remicade. Perhaps we could see how she responds clinically with the IV steroids over the next 24 hours and if she is not substantially better get the first dose on board while we await the results of some of the testing. Dane Flores MD 04/19/17 1515 Assessment & Plan Drug Induced colitis -continue hydration -follow H/H -continue prednisone -plan for Remicaide on Sunday VTE Mechanical Devices: Intermittant Pneumatic CD Resuscitation Status: DNR/DNI:Do Not Resuscitate/Intubate Luis A Vargas MD Apr 30, 2017 17:21
[2017-04-30 20:45] VITALS: BP 156/82; PULSE 103; RESP 18; O2SAT 96
[2017-05-01 05:45] VITALS: BP 116/66; PULSE 85; RESP 16; O2SAT 98
[2017-05-01] MEDS: LORazepam 0.5 mg Tablet PO PRN ×3 (06:06→21:50)
--- NOTE | 2017-05-01 06:24 | NUR ---
Activity Pt continues to have blood in stool but overall decreasing. Pt taking Lorazepam to help with cramping, which has been effective.
[2017-05-01 08:29] LABS: BASOPHILS % (AUTO) 0.1 % (0-3); Mean Corpuscular Volume 81.7 fL (81-100); NEUTROPHILS % (AUTO) 68.4 % (40-74); Platelet Count 399 bil/L (150-400)
[2017-05-01 08:49] LABS: Magnesium 1.7 mg/dL (1.6-2.6)
[2017-05-01] MEDS: Sodium-Potassium Phosphorus Packet TUBE SCH ×4 (08:52→21:50)
[2017-05-01] MEDS: predniSONE 10 mg Tablet PO SCH (08:53)
[2017-05-01] MEDS: Lactobacillus Rhamnosus 10 Bil Unit Capsule PO SCH ×2 (08:53→18:48)
[2017-05-01] MEDS: Pantoprazole 20 mg ER24 Tablet PO SCH ×2 (08:54→21:50)
[2017-05-01] MEDS: Nystatin 100,000 Unit/mL 5 mL Suspension PO SCH ×4 (08:55→21:50)
--- NOTE | 2017-05-01 11:32 | NUR ---
Social Work: Readiness for Discharge D: EMR reviewed. Pt is on day 13 of hospitalization for adverse medication reaction, diarrhea. Per MD, pt anticipated to discharge tomorrow. Pt continues on PO prednisone. ROGER met with pt at bedside regarding caregiving quotes. Pt would like to speak with representatives from both [facility] and [facility] regarding setting up services and scott quotes. SW facilitated communication with both [facility] and [facility]. Iesha from [facility] is happy to come meet pt at bedside today, Iesha will reach out to pt directly and update [employer]ER TENDER HELPER of visit time. Tamika from [facility] is also happy to meet with pt at bedside, she anticipates between 3 and 4 pm today. Pt updated and agreeable to plan. She will update pt and [employer] HELPER when information is known. Pt also to discharge home with [facility] for RN x3/week. SW to update Belinda from [facility] when pt is ready to discharge. SW will continue to follow. A: Pt for whom RN 3x/week has been deemed medically necessary in addition to private pay caregivers. P: At pt request, [facility] and [facility] to meet with pt at bedside regarding caregiving needs. Pt to return home via POV with [facility] RN 3x/week and private caregiver. SW will continue to follow for discharge needs. Matilda Chavez MSW
[2017-05-01 12:37] VITALS: BP 117/66; PULSE 87; RESP 16; O2SAT 96
--- NOTE | 2017-05-01 13:10 | PCM.PNMED ---
Subjective Date of Service May 01, 2017 Subjective Still having a lot of stools with some blood in them. Abdomen feeling better, no nausea or vomiting, no chest pain no dyspnea still lower extremity edema. Exam Vital Signs Vital Sign - Last Date Time Temp Pulse Resp B/P Pulse Ox O2 Delivery O2 Flow Rate FiO2 05/01/17 12:37 36.9 87 16 117/66 96 Room Air Intake and Output 04/30/17 04/30/17 05/01/17 Cumulative From/Thru 15:00 23:00 07:00 04/18/17 10:59 - 05/01/17 06:33 Intake Total 0 ml 640 ml 300 ml 94014 ml Output Total 950 ml 32239 ml Balance 0 ml 640 ml -650 ml 7089 ml Intake Oral 640 ml 300 ml 71163 ml IV Total 0 ml 28928 ml Packed Cells 650 ml Output Urine Total 950 ml 49372 ml Urine/Stool Mix 3451 ml # Voids 3 1 13 # Bowel Movements 5 4 66 Exam Gen.- A+ O 3 no apparent distress. Thin female sitting up in chair Eyes- open conjunctiva clear, pupils equal nonicteric Mouth-lips normal ENT- ears normal, nose normal Neck- supple/trach midline CVS-RRR no murmur/gallop Lungs-normal rate, CTA no wheezes rhonchi or accessory muscles GI-flat, soft, nontender, hyperactive bowel sounds Musc- moving 4 no obvious deformity Neuro- cranial nerves II through XII intact to gross examination, nonfocal Skin- warm and dry, no rashes/lesions/wounds noted Psych- pleasant and appropriate, Lab and Diagnostics Result Diagram: 05/01/17 0812 05/01/17 0812 Additional Diagnostics DATE OF PROCEDURE: 04/18/2017 PRIMARY PROVIDER: Kentrell Gan MD. PROCEDURE: Colonoscopy with biopsies. INDICATIONS: A 76-year-old female with severe diarrhea following the initiation of ipilimumab. She has only been partially responsive to steroids. EQUIPMENT: [facility]. SEDATION: 1. Versed 5 mg. 2. Fentanyl 100 mcg. COMPLICATIONS: None identified. BOWEL PREPARATION: Excellent with a single Fleet's. PROCEDURE INFORMATION: After the risks and benefits were explained, written and verbal informed consent was obtained. The patient was brought into the endoscopy suite and placed into the left lateral decubitus position. Sedation was achieved as above. A digital rectal examination accomplished. Mild internal hemorrhoids noted. The scope was then introduced into the rectum and advanced with great difficulty to about 35 cm from the anal verge in the sigmoid. The patient had a very tortuous bowel. It was inflamed and she demonstrated suboptimal tolerance with intermittent SVT into the high 140s, low 150s. She would respond with Valsalva. We did not make an effort to push beyond this depth in that we already had clear-cut evidence of proctocolitis. Biopsies were acquired. The scope was withdrawn. Patient tolerated the procedure reasonably well. The bowel was decompressed prior to removing the scope. FINDINGS: Mild proctitis characterized by exudate, erythema, loss of vascular pattern. There were punctate ulcerations. This became a little more intense just beyond the rectosigmoid through the sigmoid colon. We took a couple of biopsies from the sigmoid for histopathologic confirmation. As mentioned above, we did not attempt to navigate beyond 35 cm secondary to patient's heart rate intermittently spiking at 150 beats per minute.. ENDOSCOPIC DIAGNOSIS: Proctocolitis. RECOMMENDATIONS: 1. Await histopathology. 2. Continue IV hydrocortisone. 3. Hepatitis B serology and QuantiFERON Gold results are still pending. There was hyperinflation on the chest x-ray suggesting COPD but otherwise no acute cardiopulmonary abnormalities. Ideally, I would like to see these results returned prior to first dose of Remicade. Perhaps we could see how she responds clinically with the IV steroids over the next 24 hours and if she is not substantially better get the first dose on board while we await the results of some of the testing. 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 05/01 patient continues to have some bloody stools she had 9 yesterday and already for by breakfast time. She is feeling a bit better stronger and able to ambulate. Labs are stable but we will check them again. Plan is to discharge her with home health if her labs are stable and she is otherwise doing well tomorrow 05/02. She is planned for Remicade 05/03 at the infusion center. # Diarrhea, acute on chronic,poa, Due to Ipilimumab adverse effect, failed prednisone outpt . stool pcr negative, -s/p sigmoidoscopy 04/19 which shows Proctocolitis.Initially started on Hydrocortisone 100mg iv q8h then prednisone 40 mg daily, -pneumoperitoneum 04/24 s/p colonoscopy. surgery signed off 04/30 -Remicade 04/20 per GI, Dr Flores following -pt on her own probiotics/fiber #LE edema, likely due to IVF and/or malnutrition, #protein caloric malnutrition, moderate, POA, due to poor oral intake given GI condition -PO supplement, phos replacement, replete K,Mg #Episodes of SVTs on 04/19, Probably due to electrolyte disturbance, Hypokalemia repleted, 12 lead ekg unremarkable, stable since then #acute blood loss anemia, Due to bloody diarrhea, s/p 04/27 2units of pRBC, stable # Recently diagnosed melanoma, 1st cycle of immunotherapy given a month ago. Treatment remains on hold due to side effect # PMR, Pain much better now due to steroids per patient #History of breast cancer, letrozole discontinued a month ago for unclear reason , Dr Nolan following dvt ppx Lovenox,ppi given steroid DNR/DNI , Medically complex patient at high risk for complications VTE Mechanical Devices: Intermittant Pneumatic CD Resuscitation Status: DNR/DNI:Do Not Resuscitate/Intubate VTE Mechanical Devices: Intermittant Pneumatic CD Resuscitation Status: DNR/DNI:Do Not Resuscitate/Intubate Jonathan Vazquez MD May 01, 2017 13:10
--- NOTE | 2017-05-01 13:14 | NUR ---
NUTRITION FOLLOW UP: ASSESS: 76YO F admit with acute on chronic diarrhea now s/p sigmoidoscopy showing iatrogenic colitis, reaction to ipilimumab from Stg IV breast CA treatment. Diarrhea continues to slowly improve. She was able to have her diet advanced to General 04/26 and has been tolerating well. PO is ~25-100% of meals. Wt has increased back to her reported UBW. PMHX: Breast CA s/p lumpectomy,radiation thx, recent dx Melanoma in February,IBS DIET: General, PO 25-100% Pt reports intolerances (causes abdominal pain) with lactose, gluten, eggs, blueberries, coffee, sesame seeds, cranberry. LABS: Na 132, Bun 3, segment assembler .32, Glu 105, Ca 7.7, alb 2.5 MEDS: Reviewed. Prednisone GI: 4 BM 05/01 WEIGHT: 50.3kg BMI: 21.0; admit wt: 45kg. Wt in March-48kg, reported UBW of 50k.1kg wt loss x 1mos EST.NEEDS: WT GAIN (30-35kcal/kg;1.2-1.5g/kg IBW) Kcal: 4112-6672 Pro: 60-70g NUTRITION DIAGNOSIS: (1) Altered GI tract function related to lpilimumab medication per MD notes as evidenced by persistent diarrhea---IMPROVING. INTERVENTION: (1)Diet education/preferences obtained 04/19: Spoke with pt at length re multiple food intolerances. Reviewed high kcal/protein foods within pt dietary restrictions. (2) Continue current diet per pt provided preferences. MONITOR/EVALUATE: wt, PO intake, lab values, GI status. F/U per moderate risk.
--- NOTE | 2017-05-01 18:52 | NUR ---
PO Intake/Shift Pt eating better today, more appetite today than previously per pt. No c/o N/V, some BM today during shift and no c/o blood in stool per pt. Per pt PO Lorazepam helps with pain and N/V; pt given as scheduled. Amb ind in room to BSC and BR, steady gait.
[2017-05-01 19:08] VITALS: BP 130/75; PULSE 96; RESP 18; O2SAT 96
[2017-05-01 19:19] VITALS: BP 121/74; PULSE 85; RESP 17; O2SAT 96
--- NOTE | 2017-05-01 22:07 | PCM.PNMED ---
Subjective Date of Service May 01, 2017 Subjective bloody diarrhea yesterday, but states better today states plan if for her to go home tomorrow and get Remicaide on sunday with Dr Nolan tolerating PO Exam Vital Signs Vital Sign - Last Date Time Temp Pulse Resp B/P Pulse Ox O2 Delivery O2 Flow Rate FiO2 05/01/17 19:19 36.5 85 17 121/74 96 Room Air Intake and Output 04/30/17 04/30/17 05/01/17 Cumulative From/Thru 15:00 23:00 07:00 04/18/17 10:59 - 05/01/17 06:33 Intake Total 0 ml 640 ml 300 ml 07684 ml Output Total 950 ml 80091 ml Balance 0 ml 640 ml -650 ml 7089 ml Intake Oral 640 ml 300 ml 09657 ml IV Total 0 ml 48014 ml Packed Cells 650 ml Output Urine Total 950 ml 06735 ml Urine/Stool Mix 3451 ml # Voids 3 1 13 # Bowel Movements 5 4 66 Exam GEN- no apparent distress abdomen-soft, non tender cvs-rrr resp- clear ext- edema present Lab and Diagnostics Result Diagram: 05/01/17 0812 05/01/17 0812 Additional Diagnostics DATE OF PROCEDURE: 04/18/2017 PRIMARY PROVIDER: Kentrell Gan MD. PROCEDURE: Colonoscopy with biopsies. INDICATIONS: A 76-year-old female with severe diarrhea following the initiation of ipilimumab. She has only been partially responsive to steroids. EQUIPMENT: [facility]-H180AL. SEDATION: 1. Versed 5 mg. 2. Fentanyl 100 mcg. COMPLICATIONS: None identified. BOWEL PREPARATION: Excellent with a single Fleet's. PROCEDURE INFORMATION: After the risks and benefits were explained, written and verbal informed consent was obtained. The patient was brought into the endoscopy suite and placed into the left lateral decubitus position. Sedation was achieved as above. A digital rectal examination accomplished. Mild internal hemorrhoids noted. The scope was then introduced into the rectum and advanced with great difficulty to about 35 cm from the anal verge in the sigmoid. The patient had a very tortuous bowel. It was inflamed and she demonstrated suboptimal tolerance with intermittent SVT into the high 140s, low 150s. She would respond with Valsalva. We did not make an effort to push beyond this depth in that we already had clear-cut evidence of proctocolitis. Biopsies were acquired. The scope was withdrawn. Patient tolerated the procedure reasonably well. The bowel was decompressed prior to removing the scope. FINDINGS: Mild proctitis characterized by exudate, erythema, loss of vascular pattern. There were punctate ulcerations. This became a little more intense just beyond the rectosigmoid through the sigmoid colon. We took a couple of biopsies from the sigmoid for histopathologic confirmation. As mentioned above, we did not attempt to navigate beyond 35 cm secondary to patient's heart rate intermittently spiking at 150 beats per minute.. ENDOSCOPIC DIAGNOSIS: Proctocolitis. RECOMMENDATIONS: 1. Await histopathology. 2. Continue IV hydrocortisone. 3. Hepatitis B serology and QuantiFERON Gold results are still pending. There was hyperinflation on the chest x-ray suggesting COPD but otherwise no acute cardiopulmonary abnormalities. Ideally, I would like to see these results returned prior to first dose of Remicade. Perhaps we could see how she responds clinically with the IV steroids over the next 24 hours and if she is not substantially better get the first dose on board while we await the results of some of the testing. Dane Flores MD 04/19/17 2711 Assessment & Plan Medication induced colitis -if diarrhea improved and no more significant bleeding and drop in H/H, agree with discharge tomorrow and remicaide on Sunday -patient encouraged to keep hydrated. VTE Mechanical Devices: Intermittant Pneumatic CD Resuscitation Status: DNR/DNI:Do Not Resuscitate/Intubate Luis A Vargas MD May 01, 2017 22:07
--- NOTE | 2017-05-02 02:45 | NUR ---
Activity Pt continues to have liquid stool however there is no blood so far this shift. Lorazepam has been effective for nausea/cramping. Pt has feet up on pillows to help with BLE edema.
[2017-05-02 04:58] VITALS: BP 126/68; PULSE 84; RESP 17; O2SAT 97
[2017-05-02] MEDS: LORazepam 0.5 mg Tablet PO PRN ×2 (05:00→13:18)
[2017-05-02 05:33] LABS: BASOPHILS % (AUTO) 0.1 % (0-3); MONOCYTES % (AUTO) 9.6 % (4-12); Mean Corpuscular Hemoglobin 27.4 pg (27.0-35.0); Mean Corpuscular Volume 81.2 fL (81-100); NEUTROPHILS % (AUTO) 70.8 % (40-74); Platelet Count 492 bil/L (150-400)
[2017-05-02 09:07] VITALS: BP 120/60; PULSE 95; RESP 16; O2SAT 95
[2017-05-02] MEDS: predniSONE 10 mg Tablet PO SCH (09:33)
[2017-05-02] MEDS: Nystatin 100,000 Unit/mL 5 mL Suspension PO SCH ×2 (09:33→13:18)
[2017-05-02] MEDS: Pantoprazole 20 mg ER24 Tablet PO SCH (09:33)
[2017-05-02] MEDS: Lactobacillus Rhamnosus 10 Bil Unit Capsule PO SCH (09:33)
[2017-05-02] MEDS: Sodium-Potassium Phosphorus Packet TUBE SCH ×2 (09:34→13:20)
--- NOTE | 2017-05-02 11:26 | NUR ---
Discharge Pt ready to discharge first thing this morning. Let pt know I will know more in morning rounds. Care continues.
--- NOTE | 2017-05-02 11:59 | PCM.DIMED ---
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 We will draw labs periodically to verify their stability. Follow-up plan He can call your primary care provider however Dr. Nolan and Sangita are most important Follow-up Provider: Chester Nolan DO Follow-up with PCP in: Other (Friday 05/04) Provider: Luis A Vargas MD Follow-up in: Other (call I believe in the next 2-4 weeks to follow up on pathology) Attending's Statement You are going home with home health, they can draw blood if needed otherwise she can have it drawn in the lab. CBC, complete metabolic profile magnesium and phosphorus Friday 05/04 and Monday 05/07 to follow electrolytes and hemoglobin because there is blood in stool and diarrhea can cause electrolyte abnormalities. Jonathan Vazquez MD May 02, 2017 11:59
[2017-05-02] MEDS ORDERED: TRAM-14 PO (12:08)
[2017-05-02] MEDS ORDERED: LACT1CAP37 PO (12:08)
[2017-05-02] MEDS ORDERED: NAPH1POW2 TUBE (12:08)
[2017-05-02] MEDS ORDERED: NYST1000 PO (12:08)
[2017-05-02] MEDS ORDERED: PANT20TA2 PO (12:08)
[2017-05-02] MEDS ORDERED: LOPE2CAP PO (12:08)
[2017-05-02] MEDS ORDERED: LORA-302 PO (12:08)
[2017-05-02] MEDS ORDERED: PRE10 PO (12:08)
[2017-05-02 12:49] VITALS: BP 125/70; PULSE 83; RESP 16; O2SAT 97
--- NOTE | 2017-05-02 13:17 | NUR ---
Social Work: Discharge D: EMR reviewed. Pt is on day 14 of hospitalization for adverse medication reaction, diarrhea. Pt to discharge today, discharge orders are active. SW met with pt at bedside regarding discharge plan. Pt confirms that she has scheduled [facility] to assist at home with her caregiving and housekeeping needs. Pt confirms that Amina Rao is picking her up from the hospital today at 1500. Pt is agreeable to returning home and seemed at ease with leaving the hospital. Pt also to discharge home with [facility] for RN x3/week. SW placed call to Delicia, [facility] liaison, regarding pt's discharge. Delicia has pt's F2F and will let her staff know. All updated and agreeable to plan. Pt to discharge home to spouse with caregivers and [facility] RN. No additional discharge needs identified. A: Pt for whom HH RN 3x/week has been deemed medically necessary in addition to private pay caregivers. P: Pt to discharge home to spouse with caregivers and [facility] RN. [facility] to provide transportation home from hospital at 1500. No additional discharge needs identified. All updated and agreeable to plan. RASHAD York
--- NOTE | 2017-05-02 14:49 | PCM.DC.MED ---
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 Pneumoperitoneum similar to prior CT scan and persistent small bowel obstruction. 2. Small pleural effusions. Dictated by: Roshan URBINA Interpreted: Bernabe Magallon MD on 04/24/2017 at 9:05 CT ABDOMEN AND PELVIS WITH CONTRAST: Teresa Snyder M.D. on 04/23/2017 at 21:17 1. Small bilateral pleural effusions. 2. Pneumobilia suggesting recent biliary intervention. Please correlate clinically. 3. Pneumoperitoneum suggesting bowel perforation. Surgical consult recommended. 4. Circumferential wall thickening of the colon suspicious for acute colitis. This finding is new when compared with prior CT dated 03/15/17. Dictated by: Teresa Snyder M.D. on 04/23/2017 at 21:17 X-RAY CHEST, TWO VIEWS: Mattie Samaniego MD on 04/19/2017 at 10:10 Hyperinflation suggesting COPD. No acute cardiopulmonary process. Dictated by: Roshan URBINA Interpreted: Mattie Samaniego MD on 04/19/2017 at 10:10 Other Diagnostics DATE OF PROCEDURE: 04/18/2017 PRIMARY PROVIDER: Kentrell Gan MD. PROCEDURE: Colonoscopy with biopsies. INDICATIONS: A 76-year-old female with severe diarrhea following the initiation of ipilimumab. She has only been partially responsive to steroids. EQUIPMENT: [facility]. SEDATION: 1. Versed 5 mg. 2. Fentanyl 100 mcg. COMPLICATIONS: None identified. BOWEL PREPARATION: Excellent with a single Fleet's. PROCEDURE INFORMATION: After the risks and benefits were explained, written and verbal informed consent was obtained. The patient was brought into the endoscopy suite and placed into the left lateral decubitus position. Sedation was achieved as above. A digital rectal examination accomplished. Mild internal hemorrhoids noted. The scope was then introduced into the rectum and advanced with great difficulty to about 35 cm from the anal verge in the sigmoid. The patient had a very tortuous bowel. It was inflamed and she demonstrated suboptimal tolerance with intermittent SVT into the high 140s, low 150s. She would respond with Valsalva. We did not make an effort to push beyond this depth in that we already had clear-cut evidence of proctocolitis. Biopsies were acquired. The scope was withdrawn. Patient tolerated the procedure reasonably well. The bowel was decompressed prior to removing the scope. FINDINGS: Mild proctitis characterized by exudate, erythema, loss of vascular pattern. There were punctate ulcerations. This became a little more intense just beyond the rectosigmoid through the sigmoid colon. We took a couple of biopsies from the sigmoid for histopathologic confirmation. As mentioned above, we did not attempt to navigate beyond 35 cm secondary to patient's heart rate intermittently spiking at 150 beats per minute.. ENDOSCOPIC DIAGNOSIS: Proctocolitis. RECOMMENDATIONS: 1. Await histopathology. 2. Continue IV hydrocortisone. 3. Hepatitis B serology and QuantiFERON Gold results are still pending. There was hyperinflation on the chest x-ray suggesting COPD but otherwise no acute cardiopulmonary abnormalities. Ideally, I would like to see these results returned prior to first dose of Remicade. Perhaps we could see how she responds clinically with the IV steroids over the next 24 hours and if she is not substantially better get the first dose on board while we await the results of some of the testing. Dane Flores MD 04/19/17 3091 Brief History 76 yrs old lady with past medical history of breast cancer, melanoma, PMR, IBS came to emergency room due to worsening of diarrhea of 5 days. She has extensive oncologic history of breast cancer and melanoma. She was diagnosed with breast cancer x3 and melanoma. She was diagnosed with Right- sided breast cancer (DCIS) at age 49 in 1989 and underwent lumpectomy and radiation. 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 She was again diagnosed with recurrence of breast cancer 5 years ago. She was on letrozole until recently and discontinued by Dr Nolan a month ago due to worsening of her PMR shoulder pain per patient but due to initiation of immunotherapy for melanoma per prior admission note She was recently diagnosed with stage IIIC melanoma(TXN1) in February and was started on immunotherapy Ipilimumab . She received her first cycle month ago. She was admitted from 04/01 - 04/05 due to diarrhea secondary to immunotherapy. She was discharged on prednisone 20 mg bid. She had some improvement of diarrhea initially but started to have worsening of her diarrhea since last Sunday. She is having 12-15 episodes of watery diarrhea per day. She also had episodes of blood mixed with diarrhea in the last 3 days. She has nausea but no vomiting. Denies fever. She was seen by Dr. Nolan on Sunday and he increased her prednisone to 40 mg by mouth twice a day but continued to have diarrhea 12-15 episodes /d which prompted ED visit. ED course: Vitals and exam unremarkable. No leukocytosis.Na 122, creatinine 0.4 , lactic acid 2.5. 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 05/01 patient continues to have some bloody stools she had 9 yesterday and already for by breakfast time. She is feeling a bit better stronger and able to ambulate. Labs are stable but we will check them again. Plan is to discharge her with home health if her labs are stable and she is otherwise doing well tomorrow 05/02. She is planned for Remicade 05/03 at the infusion center. 05/02 patient continues to have some blood tinge diarrhea 7-10 bowel movements daily. He is on electrolyte replacement and maintains electrolytes and fluids adequately. She is on prednisone 30 mg daily and going to get another dose of Remicade Friday 05/04 and hopefully her immune mediated colitis will resolve. She will be seen in the infusion clinic by Dr. Nolan her oncologist 05/04 and can call for GI follow-up with Drs. Flores or Sangita in next couple weeks as needed # Diarrhea, acute on chronic,poa, Due to Ipilimumab adverse effect, failed prednisone outpt . stool pcr negative, -s/p sigmoidoscopy 04/19 which shows Proctocolitis.Initially started on Hydrocortisone 100mg iv q8h then prednisone 40 mg daily, -pneumoperitoneum 04/24 s/p colonoscopy. surgery signed off 04/30 -Remicade 04/20 per GI, Dr Flores following -pt on her own probiotics/fiber #LE edema, likely due to IVF and/or malnutrition, #protein caloric malnutrition, moderate, POA, due to poor oral intake given GI condition -PO supplement, phos replacement, replete K,Mg #Episodes of SVTs on 04/19, Probably due to electrolyte disturbance, Hypokalemia repleted, 12 lead ekg unremarkable, stable since then #acute blood loss anemia, Due to bloody diarrhea, s/p 04/27 2units of pRBC, stable # Recently diagnosed melanoma, 1st cycle of immunotherapy given a month ago. Treatment remains on hold due to side effect # PMR, Pain much better now due to steroids per patient #History of breast cancer, letrozole discontinued a month ago for unclear reason , Dr Nolan following dvt ppx Lovenox,ppi given steroid DNR/DNI , Exam Vital Signs (Last) Date Time Temp Pulse Resp B/P Pulse Ox O2 Delivery O2 Flow Rate FiO2 05/02/17 12:49 36.8 83 16 125/70 97 Room Air Exam Gen.- A+ O 3 no apparent distress. Thin female sitting up in chair Eyes- open conjunctiva clear, pupils equal nonicteric Mouth-lips normal ENT- ears normal, nose normal Neck- supple/trach midline CVS- normal rate Lungs-normal rate, no accessory muscles GI-flat, Musc- moving 4 no obvious deformity Neuro- cranial nerves II through XII intact to gross examination, nonfocal Skin- warm and dry, no rashes/lesions/wounds noted Psych- pleasant and appropriate, Test 04/18/17 11:30 04/18/17 11:54 04/18/17 19:50 04/19/17 16:26 Erythrocyte Sedimentation Rate 29mm/hr (0-40) C-Reactive Protein 2.5mg/dL (0.0-0.5) Lipase 46U/L (13-60) Urine Color Yellow (YELLOW) Urine Appearance Hazy (CLEAR,HAZY) Urine pH 5.5 (5.0-8.0) Urine Specific Mcdonough 1.025 (1.003-1.035) Urine Protein Tracemg/dL (NEG,TRACE) Urine Glucose (UA) Negativemg/dL (NEGATIVE) Urine Ketones Negativemg/dL (NEGATIVE) Urine Occult Blood Small (NEGATIVE) Urine Nitrite Negative (NEGATIVE) Urine Bilirubin Negative (NEGATIVE) Urine Urobilinogen Normalmg/dL (NORMAL) Urine Leukocyte Esterase Negative (NEGATIVE) Urine RBC 0-2/hpf (0-2) Urine WBC 0-5/hpf (0-5) Urine Epithelial Cells Occasional/hpf (NONE-MOD) Urine Crystals Ammonium biurates (NONE Urine Bacteria None/hpf (NONE-FEW) Urine Hyaline Casts Occasional/lpf (NONE) Urine Granular Casts None seen (NONE SEEN) Urine Waxy Casts None seen (NONE SEEN) Urine Red Blood Cell Casts None seen (NONE SEEN) Urine White Blood Cell Casts None seen (NONE SEEN) Urine Mucus Present (None Seen) Urine Trichomonas None seen (NONE SEEN) Urine Yeast None (NONE SEEN) Urinalysis Comment None Urine Culture Reflexed Not indicated Hepatitis B Surface Antigen Negative (Negative) Hepatitis B Core Total Antibody Positive (Negative) TB Test (QFT) Gold In Tube Indeterminate (Negative) TB Test (QFT) Incubation Comment (.) TB Test (QFT) Mitogen 0.24IU/mL (.) TB Test (QFT) Antigen 0.05IU/mL (.) TB Test (QFT) Antigen Minus Nil 0.01IU/mL (.) TB Test (QFT) TB - Nil 0.04IU/mL (.) TB Test (QFT) Positive Criteria Comment (.) TB Test (QFT) Interpretation Comment (.) Band Neutrophils % 10% (1-5) Lactic Acid Level 1.3mmol/L (0.4-2.0) Troponin T < 0.010ug/L (0.0-0.011) Thyroid Stimulating Hormone (TSH) 0.532uIU/mL (0.450-4.500) Free Thyroxine 1.38ng/dL (0.82-1.77) Test 04/20/17 10:30 04/30/17 05:00 05/01/17 08:12 05/02/17 04:55 Procalcitonin 0.07ng/mL (0.00-0.08) Hepatitis B Surface Antibody Reactive (.) Phosphorus Level 2.1mg/dL (2.5-4.9) Magnesium Level 1.7mg/dL (1.6-2.6) Total Bilirubin 0.4mg/dL (0.0-1.2) Aspartate Amino Transf (AST/SGOT) 9U/L (0-50) Alanine Aminotransferase (ALT/SGPT) 12U/L (0-32) Alkaline Phosphatase 74U/L (25-165) Total Protein 4.2g/dL (6.4-8.4) Albumin 2.5g/dL (3.4-5.0) White Blood Count 10.6th/mm3 (3.8-10.1) Red Blood Count 4.31mil/mm3 (3.90-5.20) Hemoglobin 11.8g/dL (12.0-15.6) Hematocrit 35.0% (35.0-46.0) Mean Corpuscular Volume 81.2fL (81-100) Mean Corpuscular Hemoglobin 27.4pg (27.0-35.0) Mean Corpuscular Hemoglobin Concent 33.7% (32.0-37.0) Red Cell Distribution Width 16.9% (12.3-15.4) Platelet Count 492bil/L (150-400) Neutrophils (%) (Auto) 70.8% (40-74) Lymphocytes (%) (Auto) 18.0% (14-46) Monocytes (%) (Auto) 9.6% (4-12) Eosinophils (%) (Auto) 1.0% (0-5) Basophils (%) (Auto) 0.1% (0-3) Sodium Level 133mEq/L (134-144) Potassium Level 4.8mEq/L (3.5-5.2) Chloride Level 93mEq/L (97-108) Carbon Dioxide Level 28mmol/L (18-29) Blood Urea Nitrogen 3mg/dL (8-27) Creatinine 0.41mg/dL (0.57-1.00) Estimat Glomerular Filtration Rate 215mL/min (>59) Glucose Level 97mg/dL (60-99) Calcium Level 9.0mg/dL (8.5-10.1) Microbiology Results Stool PCR and C. difficile negative from the 10 26 and Discharge Medications Discharge Medications Acyclovir (Acyclovir) 800 Mg Tab 800 MG PO DAILY (Reported) Cyclosporine (Restasis) 1 Each Droperette 1 EACH BOTH_EYES BID (Reported) Lactobacillus Rhamnosus GG (Culturelle) 1 Each Capsule 1 CAPSULE PO BIDWM Prescribed by: INO DUENAS MD Naph,Mb-Db/K pH,Mbdb (Phos-Nak Packet) 1 Each Powd.pack 1 EA TUBE PCHS Prescribed by: INO DUENAS MD Nystatin (Nystatin) 100,000 Unit/1 Ml Oral.susp 500,000 UNIT PO PCHS Prescribed by: INO DUENAS MD Pantoprazole DR (Pantoprazole DR) 20 Mg Tablet.dr 20 MG PO BID Prescribed by: INO DUENAS MD Prednisone (PredniSONE) 10 Mg Tablet 30 MG PO DAILYWM Prescribed by: INO DUENAS MD Propylene Glycol/Peg 400/Pf (Systane 0.3-0.4% Eye Drops) 1 Each Droperette 1 DROP BOTH_EYES HS (Reported) As needed ([Bismuth Subsalicylate]) 1 ML ORAL.SUSP 30 ML PO Q4H PRN PRN For Diarrhea or Loose Stool Prescribed by: INO DUENAS MD Carboxymethylcellulose Sodium (Refresh Tears) 15 Ml Drops 1 DROP BOTH_EYES 5XD PRN PRN For Eye Irritation (Reported) Loperamide (Loperamide) 2 Mg Capsule 2 MG PO Q6H PRN PRN For Diarrhea or Loose Stool Prescribed by: INO DUENAS MD Lorazepam (Lorazepam) 0.5 Mg Tablet 0.25 MG PO BID PRN PRN For Nausea (Reported ) Lorazepam (Ativan) 0.5 Mg Tablet 0.5 MG PO TID PRN PRN For Anxiety Prescribed by: INO DUENAS MD Tramadol (Ultram) 50 Mg Tablet 50 MG PO Q4H PRN PRN For Mild Pain Prescribed by: INO DUENAS MD Followup Plan Follow-up plan He can call your primary care provider however Dr. Nolan and Sangita are most important Discharge Diet: No restrictions Discharge Activity: No restrictions Patient Instructions Particular medication, follow up in the infusion clinic for Remicade Sunday. We will draw labs periodically to verify their stability. Follow-up Provider: Chester Nolan DO Follow-up with PCP in: Other (Friday 05/04) Provider: Luis A Vargas MD Follow-up in: Other (call I believe in the next 2-4 weeks to follow up on pathology) Time spent Greater than 30 minutes Attending Statement Patient needs CBC, complete metabolic panel magnesium and phosphate 05/04 and and then as directed. Can follow up with primary care provider however oncology/GI should take precedence. copies to: Luis A Vargas MD; Chester Nolan DO; Kentrell Gan MD; Dane Flores MD, Andris E MD May 02, 2017 14:49
--- NOTE | 2017-05-02 15:59 | NUR ---
Discharge Pt discharged at approximately 1600 to home with caregiver. Pt given educational material for adverse medication reaction, diarrhea and all new prescriptions. Pt acknowledged and understood all information. IV DCd with catheter. Pt left with all personal belongings. Followup appts scheduled. Escorted by CERTIFIED PHLEBOTOMIST in wheelchair to door.
--- NOTE | 2017-05-03 07:48 | PROG NOTE ---
[address] [address] PROGRESS NOTE PATIENT: SANDRA BATES : 1940 MR#: [id number] ADMIT: 04/18/2017 JOB ID: [id number] DATE: 05/02/2017 SUBJECTIVE: The patient is being seen today per hospital rounds. She carries a diagnosis of ipilimumab-induced colitis. The patient is being discharged today. Clinically, she has seen resolution of the bloody stool for the past 36 hours. She has noticed loose stools throughout the day since she woke up, but no watery stools. Her abdominal cramping is well controlled with her lorazepam. No fevers or chills. The patient has already been [facility]. Orders and were ordered. This will be a nurse visit only. No labs. She should also have followup with me in approximately one week's time, which we will be scheduling for her also. She otherwise had no further questions.
== END 2017-05-02 16:00 | disposition home health service (06) | DRG 393 ==
LOC: SED 10:54 → OSC 13:47 → OBSVTOIN 13:47
PROVIDERS: ADMIT Internal Medicine; ATTEND Internal Medicine
PROC: 0DBN8ZX Excision of Sigmoid Colon, Via Natural or Artificial Opening Endoscopic, Diagnostic (ICD-10-PCS; principal; 2017-04-19 15:30)
PROC: 30233N1 Transfusion of Nonautologous Red Blood Cells into Peripheral Vein, Percutaneous Approach (ICD-10-PCS; 2017-04-27)
DX: K52.1 Toxic gastroenteritis and colitis (principal); K63.1 Perforation of intestine (nontraumatic); E87.1 Hypo-osmolality and hyponatremia; E44.0 Moderate protein-calorie malnutrition; Z68.1 Body mass index [BMI] 19.9 or less, adult; D62 Acute posthemorrhagic anemia; I47.1 Supraventricular tachycardia; C43.9 Malignant melanoma of skin, unspecified; T45.1X5A Adverse effect of antineoplastic and immunosuppressive drugs, initial encounter; D50.0 Iron deficiency anemia secondary to blood loss (chronic); Z85.3 Personal history of malignant neoplasm of breast; Z66 Do not resuscitate; K62.89 Other specified diseases of anus and rectum; M35.3 Polymyalgia rheumatica